=== PATIENT | female | born 1940 | race Caucasian/White ===

== ENCOUNTER 2020-01-12 22:24 | Inpatient (IN) | payer MEDICARE, OTHER ==
[~2020-01-12] VITALS: Ht 165.1 cm; Wt 57.9 kg
[~2020-01-12 22:24] MED LIST: ACETAMINOPHEN120 MG ORAL; ACETAMINOPHEN325 M1 ORAL; ASPIR 8181 MG ORAL; ASPIRIN81 MG ORAL; ATENOLOL100 MG ORAL; ATIVAN0.5 MG ORAL; BISACODYL10 M1 RC; BISACODYL5 MG RECTAL; CRESTOR10 M2 ORAL; DEPAKOTE SPRIN125 MG PO; DEPAKOTE250 MG PO; DOCUSATE SODIU100 MG ORAL; FLEET ENEMA133 ML RECTAL; GABAPENTIN100 MG ORAL; LEVOFLOXACIN500 MG ORAL; LIDODERM700 M1 TOPIC; MELATONIN 3 MG1 EAC1 PO; MILK OF MA400 MG/51 ORAL; MIRTAZAPINE45 MG ORAL; MULTIVITAMINS1 EAC2 ORAL; NITROGLYCERIN2.5 MG PO; NITROSTAT0.4 M1 SL; QUETIAPINE FUMA50 MG ORAL; SENNA8.6 M2 PO; SINEMET 25-1001 EAC1 ORAL; TRAMADOL HCL50 MG ORAL; VITAMIN D1000 UNI1 ORAL; XARELTO10 MG ORAL; XARELTO20 MG ORAL
[2020-01-12 22:30] VITALS: BP 122/56
--- NOTE | 2020-01-12 22:40 | NUR ---
ED Nurse Note: Patient brought into ED by RA Durbin from [facility] c/o cough onset for today. patient presents with a very wet cough. patient is obtunded and presents with contracted legs, patient is alert and oriented x0. patient o2 sat currently at 98% on 6 liters on a simple mask. covid swab sent. patient placed on campus monitor. IV placed on patients left hand 20 gauge. will wait for further orders
--- NOTE | 2020-01-12 22:40 | Emergency Room Report ---
History of Present Illness General Chief Complaint: Dyspnea/Respdistress Present Illness HPI Disclaimer: Please note that this report is being documented using built.ioON technology. This can lead to erroneous entry secondary to incorrect interpretation by the dictating instrument. HPI: 79-year-old female history of Parkinson's disease, dementia, bedbound, hypertension, presented from long-term facility due to cough and shortness of breath with hypoxia. Apparently patient appeared to be "choking on her secretions" per half-way staff. Saturation noted in the low 80s. EMS was called and transported to the ER. In route patient's O2 saturation normal. On arrival apparently at baseline she is confused and occasionally conversational. She did answer few questions but was unable to provide a full history. 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 COVID-19 Screening: Negative COVID-19 COVID-19 Testing Source: 2wks ago Patient History Reviewed Nursing Documentation: PMH: Agreed; PSxH: Agreed Nursing Documentation-PMH Hx Cardiac Problems: Yes Hx Hypertension: Yes Hx Diabetes: Yes Hx Cancer: Yes - unk Hx Gastrointestinal Problems: No Hx Neurological Problems: Yes Hx Dementia: Yes Hx Parkinson's Disease: Yes Hx Dysphasia: Yes Hx Weakness: Yes Review of Systems All Other Systems: limited - Due to baseline mental status Physical Exam Vital Signs Date Time Temp Pulse Resp B/P (MAP) Pulse Ox O2 Delivery O2 Flow Rate FiO2 01/12/20 22:25 98.1 65 16 122/56 (78) 98 Room Air Sp02 EP Interpretation: reviewed, normal General Appearance: no apparent distress, cachetic, Chronically Ill Head: normocephalic, atraumatic Eyes: bilateral eye PERRL, bilateral eye EOMI ENT: hearing grossly normal, moist mucus membranes Neck: full range of motion, supple Respiratory: no respiratory distress, no retraction, no wheezing, rhonchi - Noted at the lung bases Cardiovascular #1: normal peripheral pulses, regular rate, rhythm, no murmur Gastrointestinal: non tender, soft, non-distended, no guarding Neurologic: no focal defects, other - Patient opens eyes to voice, localizes to pain, is confused lower extremities contracted at baseline Skin: normal color, warm/dry Medical Decision Making Diagnostic Impression: Primary Impression: Urinary tract infection Additional Impression: Concern for aspiration pneumonia ER Course MDM: Differential diagnosis included but not limited to COVID-19 pneumonia aspiration pneumonia CHF, to name a few Clinical course-septic work-up initiated, COVID-19 testing was sent. COVID-19 testing was negative. White blood cell count was normal. Patient was around 95 % on room air. She did have a cough in the ER. Chest x-ray showed no obvious large infiltrate however due to the reported history of coughing and possibly choking on secretions I did have some concern for aspiration. I did give IV antibiotics. Urinalysis showed too numerous to count WBCs so I do believe patient does have a UTI as well. I did speak with the son who was in the ER and states his mother is currently at her neurologic baseline. I also spoke with patient's primary care doctor who will admit patient to the hospital. Patient was admitted to the medical floor Labs - Laboratory Tests Test 01/12/20 22:30 White Blood Count 9.6 K/UL (4.8-10.8) Red Blood Count 4.63 M/UL (4.20-5.40) Hemoglobin 12.6 G/DL (12.0-16.0) Hematocrit 40.8 % (37.0-47.0) Mean Corpuscular Volume 88 FL (80-99) Mean Corpuscular Hemoglobin 27.3 PG (27.0-31.0) Mean Corpuscular Hemoglobin Concent 31.0 G/DL (32.0-36.0) L Red Cell Distribution Width 15.0 % (11.6-14.8) H Platelet Count 239 K/UL (150-450) Mean Platelet Volume 9.0 FL (6.5-10.1) Neutrophils (%) (Auto) 56.6 % (45.0-75.0) Lymphocytes (%) (Auto) 33.5 % (20.0-45.0) Monocytes (%) (Auto) 7.4 % (1.0-10.0) Eosinophils (%) (Auto) 1.8 % (0.0-3.0) Basophils (%) (Auto) 0.7 % (0.0-2.0) Prothrombin Time 11.5 SEC (9.30-11.50) Prothrombin Time INR 1.0 (0.9-1.1) Activated Partial Thromboplast Time 29 SEC (23-33) Urine Color Yellow Urine Appearance Cloudy Urine pH 6 (4.5-8.0) Urine Specific [place] 1.020 (1.005-1.035) Urine Protein 1+ (NEGATIVE) H Urine Glucose (UA) Negative (NEGATIVE) Urine Ketones Negative (NEGATIVE) Urine Blood 4+ (NEGATIVE) H Urine Nitrite Positive (NEGATIVE) H Urine Bilirubin Negative (NEGATIVE) Urine Urobilinogen Normal MG/DL (0.0-1.0) Urine Leukocyte Esterase 3+ (NEGATIVE) H Urine RBC 40-60 /HPF (0 - 2) H Urine WBC Tntc /HPF (0 - 2) H Urine Squamous Epithelial Cells Moderate /LPF (NONE/OCC) H Urine Bacteria Moderate /HPF (NONE) H Sodium Level 143 MMOL/L (136-145) Potassium Level 4.6 MMOL/L (3.5-5.1) Chloride Level 107 MMOL/L (98-107) Carbon Dioxide Level 31 MMOL/L (21-32) Anion Gap 5 mmol/L (5-15) Blood Urea Nitrogen 15 mg/dL (7-18) Creatinine 0.8 MG/DL (0.55-1.30) Estimated Glomerular Filtration Rate > 60 mL/min (>60) Glucose Level 98 MG/DL (74-106) Lactic Acid Level 1.40 mmol/L (0.4-2.0) Calcium Level 9.1 MG/DL (8.5-10.1) Total Bilirubin 0.3 MG/DL (0.2-1.0) Aspartate Amino Transferase (AST) 45 U/L (15-37) H Alanine Aminotransferase (ALT) 12 U/L (12-78) Alkaline Phosphatase 104 U/L (46-116) Total Creatine Kinase 97 U/L (26-308) Creatine Kinase MB 1.3 NG/ML (0.0-3.6) Creatine Kinase MB Relative Index 1.3 Troponin I 0.000 ng/mL (0.000-0.056) Pro-B-Type Natriuretic Peptide 300 pg/mL (0-125) H Total Protein 7.9 G/DL (6.4-8.2) Albumin 3.0 G/DL (3.4-5.0) L Globulin 4.9 g/dL Albumin/Globulin Ratio 0.6 (1.0-2.7) L Microbiology Date/Time Source Procedure Growth Status 01/12/20 22:30 Nasopharynx SARS-CoV-2 RdRp Gene Assay - Final Complete On reevaluation: Vital signs stable patient in no acute distress Plan-admission to the medical floor EKG Diagnostic Results EKG Time: 22:25 Rate: normal Rhythm: NSR ST Segments: no acute changes Chest X-Ray Diagnostic Results Chest X-Ray Diagnostic Results : Chest X-Ray Ordered: Yes # of Views/Limited/Complete: 1 View Indication: Shortness of Breath EP Interpretation: Yes Interpretation: no effusion, no pneumothorax Impression: Other - Small right lower lobe infiltrate noted Last Vital Signs Date Time Temp Pulse Resp B/P (MAP) Pulse Ox O2 Delivery O2 Flow Rate FiO2 01/12/20 22:25 98.1 65 16 122/56 (78) 98 Room Air Disposition: ADMITTED INPATIENT Condition: Serious Brandon Lopez M.D. Jan 12, 2020 22:40
[2020-01-12] MEDS ORDERED: DORZOLAMIDE 2%10 ML OP (22:54)
[2020-01-12] MEDS ORDERED: LEXAPRO20 MG ORAL (22:54)
[2020-01-12] MEDS ORDERED: KEPPRA500 MG ORAL (22:54)
[2020-01-12] MEDS ORDERED: ATENOLOL50 MG ORAL (22:54)
[2020-01-12] MEDS ORDERED: GABAPENTIN100 MG ORAL (22:54)
[2020-01-12] MEDS ORDERED: CRESTOR10 M2 ORAL (22:54)
[2020-01-12] MEDS ORDERED: LACTULOSE10 GM/153 PO (22:54)
[2020-01-12] MEDS ORDERED: ELIQUIS2.5 MG PO (22:54)
[2020-01-12] MEDS ORDERED: ZINC SULFATE220 M2 ORAL (22:54)
[2020-01-12] MEDS ORDERED: ARICEPT10 MG ORAL (22:54)
--- NOTE | 2020-01-12 23:00 | NUR ---
ED Nurse Note: inserted tim cath per ERMD orders, patient also removed from simple face mask to room air, patient currently satting at 97%
[2020-01-12 23:07] LABS: BASOPHILS % (AUTO) 0.7 % (0.0-2.0); EOSINOPHILS % (AUTO) 1.8 % (0.0-3.0); HEMATOCRIT 40.8 % (37.0-47.0); HEMOGLOBIN 12.6 G/DL (12.0-16.0); LYMPHOCYTES % (AUTO) 33.5 % (20.0-45.0); MEAN CORPUSCULAR VOLUME 88 FL (80-99); MONOCYTES % (AUTO) 7.4 % (1.0-10.0); NEUTROPHILS % (AUTO) 56.6 % (45.0-75.0); PLATELET COUNT 239 K/UL (150-450); RED BLOOD COUNT 4.63 M/UL (4.20-5.40); WHITE BLOOD COUNT 9.6 K/UL (4.8-10.8)
[2020-01-12 23:18] LABS: ANION GAP 5 mmol/L (5-15); BLOOD UREA NITROGEN 15 mg/dL (7-18); CALCIUM 9.1 MG/DL (8.5-10.1); CARBON DIOXIDE 31 MMOL/L (21-32); CHLORIDE 107 MMOL/L (98-107); CREATININE 0.8 MG/DL (0.55-1.30); POTASSIUM 4.6 MMOL/L (3.5-5.1); SODIUM 143 MMOL/L (136-145)
[2020-01-12 23:19] LABS: BILIRUBIN, URINE NEGATIVE (NEGATIVE); GLUCOSE, URINE (UA) NEGATIVE (NEGATIVE); KETONES,URINE NEGATIVE (NEGATIVE); LEUKOCYTE ESTERASE ,URINE 3+ (NEGATIVE); NITRITE,URINE POSITIVE (NEGATIVE); PH,URINE 6 (4.5-8.0); PROTEIN,URINE 1+ (NEGATIVE); UROBILINOGEN,URINE NORMAL MG/DL (0.0-1.0)
[2020-01-12 23:32] LABS: ALANINE AMINOTRANSFERASE 12 U/L (12-78); ALBUMIN/GLOBULIN RATIO 0.6 (1.0-2.7); ALKALINE PHOSPHATASE 104 U/L (46-116); ASPARTATE AMINO TRANSFERASE 45 U/L (15-37); BILIRUBIN,TOTAL 0.3 MG/DL (0.2-1.0); CKMB 1.3 NG/ML (0.0-3.6); CREATINE KINASE 97 U/L (26-308)
[2020-01-12 23:39] LABS: APPEARANCE,URINE CLOUDY; COLOR,URINE YELLOW
[2020-01-12] MEDS ORDERED: Piperacillin/Tazobactam 3.375 GM in NS 110 ML IVPB ONE (23:45)
[2020-01-13 00:30] VITALS: BP 110/40
--- NOTE | 2020-01-13 01:40 | NUR ---
ED Nurse Note: Report given to [facility] receiving nurse.
--- NOTE | 2020-01-13 01:59 | NUR ---
NURSE NOTES: Received patient from ED, via gurney, patient is non verbal, but understands Farsi, asleep, eyes closed, skin is intact, IV site is clean dry and intact, patient has F/C 16 FR, inserted in ER, patient is incontinent of bowels, patient is changed, turned/ repositioned, patient has no belongings, admit orders are obtained form MD, call light is within reach, bed is lowered, locked, alarm is on, will continue to monitor for comfort and safety. Fall precautions are implemented.
--- NOTE | 2020-01-13 02:05 | NUR ---
ED Nurse Note: Patient is stable for transfer to [facility] unit at this time per ERMD. Patient is awake and alert, breathing is normal and unlabored. NAD. IV is patent. Patient taken to unit via gurney by tech. Patient has no belongings.
[2020-01-13] MEDS ORDERED: Albuterol/Ipratropium 3ml neb HHN SCH (02:30)
[2020-01-13] MEDS ORDERED: traMADol 50mg tab ORAL PRN (02:30)
[2020-01-13] MEDS ORDERED: Milk of Magnesia 30ml Ud ORAL PRN (02:30)
[2020-01-13] MEDS ORDERED: Albuterol/Ipratropium 3ml neb HHN PRN (03:00)
[2020-01-13 04:00] VITALS: BP 105/68
[2020-01-13] MEDS: Vancomycin 1gm/D5W 275ml IVPB SCH ×2 (04:05)
[2020-01-13] MEDS: Piperacillin/Tazobactam 3.375 GM in NS 110 ML IVPB SCH ×3 (05:38→21:00)
[2020-01-13 06:04] LABS: BASOPHILS % (AUTO) 0.4 % (0.0-2.0); EOSINOPHILS % (AUTO) 1.1 % (0.0-3.0); HEMATOCRIT 38.5 % (37.0-47.0); HEMOGLOBIN 12.1 G/DL (12.0-16.0); LYMPHOCYTES % (AUTO) 25.6 % (20.0-45.0); MEAN CORPUSCULAR VOLUME 86 FL (80-99); MONOCYTES % (AUTO) 5.3 % (1.0-10.0); NEUTROPHILS % (AUTO) 67.5 % (45.0-75.0); PLATELET COUNT 240 K/UL (150-450); RED BLOOD COUNT 4.46 M/UL (4.20-5.40); RED CELL DISTRIBUTION WIDTH 13.9 % (11.6-14.8); WHITE BLOOD COUNT 10.6 K/UL (4.8-10.8)
[2020-01-13 06:40] LABS: ALANINE AMINOTRANSFERASE 26 U/L (12-78); ALBUMIN 2.9 G/DL (3.4-5.0); ALBUMIN/GLOBULIN RATIO 0.6 (1.0-2.7); ALKALINE PHOSPHATASE 90 U/L (46-116); ANION GAP 9 mmol/L (5-15); ASPARTATE AMINO TRANSFERASE 31 U/L (15-37); BILIRUBIN,TOTAL 0.5 MG/DL (0.2-1.0); BLOOD UREA NITROGEN 13 mg/dL (7-18); CARBON DIOXIDE 27 MMOL/L (21-32); CHLORIDE 107 MMOL/L (98-107); CREATININE 0.9 MG/DL (0.55-1.30); PHOSPHORUS 3.6 MG/DL (2.5-4.9); SODIUM 143 MMOL/L (136-145)
--- NOTE | 2020-01-13 07:12 | NUR ---
NURSE HAND-OFF: Important Events on Shift:no events Patient Status:stable with a slight cough, breathing tx are scheduled q 6 hrs prn Diet: mechanical soft, nectar think liquids Pending Orders: Pending Results/Labs: Pending MD notification: Latest Vital Signs: Temperature 98.1 , Pulse 66 , B/P 105 /68 , Respiratory Rate 20 , O2 SAT 95 , Room Air, O2 Flow Rate . Vital Sign Comment: Latest Houser Fall Score: 70 Fall Risk: High Risk Safety Measures: Call light Within Reach, Bed Alarm Zone 1, Side Rails Side Rails x1, Bed position Low and Locked. Fall Precautions: implemented Report given to Julissa CASTAÑEDA
--- NOTE | 2020-01-13 07:35 | NUR ---
NURSE NOTES: Report received from Alessandra CASTAÑEDA. Patient seen on rounds, pt is moaning and crying, as per nurse patient speaks Farsi only, FLACC score 6, no signs of respiratory distress, tolerating room air with sats 97%. Noted dry cough and small amount of whitish oral secretions, lung sounds clear on auscultation. PIV on left hand patent and intact. Simmons catheter secured and draining well. Pt is bedbound. Bed low and locked, siderails up x3, fall precautions in place, will continue to monitor.
[2020-01-13 08:00] VITALS: BP 144/84
[2020-01-13] MEDS: Aspirin Baby 81mg ORAL SCH (08:43)
[2020-01-13] MEDS: Donepezil 10mg tab ORAL SCH (08:43)
[2020-01-13] MEDS: Eliquis 2.5mg tablet ORAL SCH ×2 (08:43→18:00)
[2020-01-13] MEDS: Levodopa/Carbidopa 25/100 tab ORAL SCH ×2 (08:43→18:00)
[2020-01-13] MEDS: LORazepam 0.5mg tab ORAL PRN (08:44)
[2020-01-13] MEDS: Docusate 100mg cap ORAL SCH ×2 (08:44→18:00)
[2020-01-13 12:00] VITALS: BP 90/51
--- NOTE | 2020-01-13 12:40 | Infectious Diseases Prog Note ---
Assessment/Plan Assessment/Plan Full consult dictated: A) 1) aspiration pna 2) uti 3) pmh noted 4) allergies - nkda P) 1) zosyn and vancomycin 2) check cultures, labs and chest x-ray 3) will f/u 4) thank you Subjective Allergies: Coded Allergies: No Known Allergies (Unverified , 09/25/18) Objective Last 24 Hour Vital Signs Date Time Temp Pulse Resp B/P (MAP) Pulse Ox O2 Delivery O2 Flow Rate FiO2 01/13/20 12:00 98.1 60 19 90/51 (64) 94 01/13/20 09:00 Room Air 01/13/20 08:44 66 19 144/84 97 01/13/20 08:44 66 144/84 01/13/20 08:00 97.0 66 19 144/84 (104) 97 01/13/20 06:35 66 20 95 Room Air 21 01/13/20 04:00 98.1 68 21 105/68 (80) 94 01/13/20 02:05 98.3 61 16 102/59 99 Room Air 01/13/20 01:59 Room Air 01/13/20 00:30 98.1 65 16 110/40 96 Room Air 01/12/20 22:30 65 16 Room Air 01/12/20 22:30 98.1 65 16 122/56 98 Room Air 01/12/20 22:25 98.1 65 16 122/56 (78) 98 Room Air Height (Feet): 5 Height (Inches): 0.00 Weight (Pounds): 130 Microbiology Date/Time Source Procedure Growth Status 01/12/20 22:30 Nasopharynx SARS-CoV-2 RdRp Gene Assay - Final Complete 01/13/20 00:13 Rectum Received Laboratory Tests Test 01/12/20 22:30 01/13/20 05:10 White Blood Count 9.6 K/UL (4.8-10.8) 10.6 K/UL (4.8-10.8) Red Blood Count 4.63 M/UL (4.20-5.40) 4.46 M/UL (4.20-5.40) Hemoglobin 12.6 G/DL (12.0-16.0) 12.1 G/DL (12.0-16.0) Hematocrit 40.8 % (37.0-47.0) 38.5 % (37.0-47.0) Mean Corpuscular Volume 88 FL (80-99) 86 FL (80-99) Mean Corpuscular Hemoglobin 27.3 PG (27.0-31.0) 27.1 PG (27.0-31.0) Mean Corpuscular Hemoglobin Concent 31.0 G/DL (32.0-36.0) L 31.4 G/DL (32.0-36.0) L Red Cell Distribution Width 15.0 % (11.6-14.8) H 13.9 % (11.6-14.8) Platelet Count 239 K/UL (150-450) 240 K/UL (150-450) Mean Platelet Volume 9.0 FL (6.5-10.1) 8.0 FL (6.5-10.1) Neutrophils (%) (Auto) 56.6 % (45.0-75.0) 67.5 % (45.0-75.0) Lymphocytes (%) (Auto) 33.5 % (20.0-45.0) 25.6 % (20.0-45.0) Monocytes (%) (Auto) 7.4 % (1.0-10.0) 5.3 % (1.0-10.0) Eosinophils (%) (Auto) 1.8 % (0.0-3.0) 1.1 % (0.0-3.0) Basophils (%) (Auto) 0.7 % (0.0-2.0) 0.4 % (0.0-2.0) Prothrombin Time 11.5 SEC (9.30-11.50) Prothromb Time International Ratio 1.0 (0.9-1.1) Activated Partial Thromboplast Time 29 SEC (23-33) Urine Color Yellow Urine Appearance Cloudy Urine pH 6 (4.5-8.0) Urine Specific [place] 1.020 (1.005-1.035) Urine Protein 1+ (NEGATIVE) H Urine Glucose (UA) Negative (NEGATIVE) Urine Ketones Negative (NEGATIVE) Urine Blood 4+ (NEGATIVE) H Urine Nitrite Positive (NEGATIVE) H Urine Bilirubin Negative (NEGATIVE) Urine Urobilinogen Normal MG/DL (0.0-1.0) Urine Leukocyte Esterase 3+ (NEGATIVE) H Urine RBC 40-60 /HPF (0 - 2) H Urine WBC Tntc /HPF (0 - 2) H Urine Squamous Epithelial Cells Moderate /LPF (NONE/OCC) H Urine Bacteria Moderate /HPF (NONE) H Sodium Level 143 MMOL/L (136-145) 143 MMOL/L (136-145) Potassium Level 4.6 MMOL/L (3.5-5.1) 4.0 MMOL/L (3.5-5.1) Chloride Level 107 MMOL/L (98-107) 107 MMOL/L (98-107) Carbon Dioxide Level 31 MMOL/L (21-32) 27 MMOL/L (21-32) Anion Gap 5 mmol/L (5-15) 9 mmol/L (5-15) Blood Urea Nitrogen 15 mg/dL (7-18) 13 mg/dL (7-18) Creatinine 0.8 MG/DL (0.55-1.30) 0.9 MG/DL (0.55-1.30) Estimat Glomerular Filtration Rate > 60 mL/min (>60) > 60 mL/min (>60) Glucose Level 98 MG/DL (74-106) 129 MG/DL (74-106) H Lactic Acid Level 1.40 mmol/L (0.4-2.0) Calcium Level 9.1 MG/DL (8.5-10.1) 9.0 MG/DL (8.5-10.1) Total Bilirubin 0.3 MG/DL (0.2-1.0) 0.5 MG/DL (0.2-1.0) Aspartate Amino Transf (AST/SGOT) 45 U/L (15-37) H 31 U/L (15-37) Alanine Aminotransferase (ALT/SGPT) 12 U/L (12-78) 26 U/L (12-78) Alkaline Phosphatase 104 U/L (46-116) 90 U/L (46-116) Total Creatine Kinase 97 U/L (26-308) Creatine Kinase MB 1.3 NG/ML (0.0-3.6) Creatine Kinase MB Relative Index 1.3 Troponin I 0.000 ng/mL (0.000-0.056) Pro-B-Type Natriuretic Peptide 300 pg/mL (0-125) H Total Protein 7.9 G/DL (6.4-8.2) 7.5 G/DL (6.4-8.2) Albumin 3.0 G/DL (3.4-5.0) L 2.9 G/DL (3.4-5.0) L Globulin 4.9 g/dL 4.6 g/dL Albumin/Globulin Ratio 0.6 (1.0-2.7) L 0.6 (1.0-2.7) L Phosphorus Level 3.6 MG/DL (2.5-4.9) Magnesium Level 2.1 MG/DL (1.8-2.4) Current Medications Medications (Trade) Dose Ordered Sig/Mikey Route PRN Reason Start Time Stop Time Status Last Admin Dose Admin Acetaminophen (Tylenol) 650 mg Q4H PRN ORAL MILD/TEMP 01/13/20 02:30 02/12/20 02:29 Albuterol/ Ipratropium (Albuterol/ Ipratropium) 3 ml Q6H PRN HHN For Cough 01/13/20 03:00 01/18/20 02:59 Apixaban (Eliquis) 2.5 mg BID ORAL 01/13/20 09:00 04/12/20 08:59 01/13/20 08:43 Aspirin (ASA) 81 mg DAILY ORAL 01/13/20 09:00 02/27/20 08:59 01/13/20 08:43 Atenolol (Tenormin) 100 mg DAILY ORAL 01/13/20 09:00 02/12/20 08:59 01/13/20 08:44 Carbidopa/Levodopa (Sinemet 25/100) 1 tab BID ORAL 01/13/20 09:00 02/12/20 08:59 01/13/20 08:43 Divalproex Sodium (Depakote Sprinkles) 500 mg BEDTIME NG 01/13/20 21:00 02/12/20 20:59 Docusate Sodium (Colace) 100 mg TWICE A DAY ORAL 01/13/20 09:00 02/12/20 08:59 01/13/20 08:44 Donepezil HCl (Aricept) 10 mg DAILY ORAL 01/13/20 09:00 02/12/20 08:59 01/13/20 08:43 Gabapentin (Neurontin) 100 mg THREE TIMES A DAY ORAL 01/13/20 09:00 02/12/20 08:59 01/13/20 08:43 Levetiracetam (Keppra) 500 mg EVERY 12 HOURS ORAL 01/13/20 09:00 02/12/20 08:59 01/13/20 08:43 Lorazepam (Ativan) 0.5 mg Q4H PRN ORAL For Anxiety 01/13/20 02:30 01/20/20 02:29 01/13/20 08:44 Magnesium Hydroxide (Mom) 30 ml DAILY PRN ORAL Constipation 01/13/20 02:30 02/12/20 02:29 Mirtazapine (Remeron) 45 mg BEDTIME ORAL 01/13/20 21:00 04/12/20 20:59 Piperacillin Sod/ Tazobactam Sod 3.375 gm/Sodium Chloride 110 ml @ 27.5 mls/hr EVERY 8 HOURS IVPB 01/13/20 06:00 01/18/20 05:59 01/13/20 05:38 Sennosides (Senokot) 8.6 mg BEDTIME ORAL 01/13/20 21:00 02/12/20 20:59 Tramadol HCl (Ultram) 50 mg Q6H PRN ORAL Moderate Pain (Pain Scale 4-6) 01/13/20 02:30 01/20/20 02:29 01/13/20 08:50 Vancomycin HCl (Vanco pharmacy to dose) 1 ea DAILY PRN MISC Per rx protocol 01/13/20 02:15 02/12/20 02:14 Vancomycin HCl 1 gm/Dextrose 275 ml @ 183.708 mls/hr Q24H IVPB 01/13/20 04:00 01/18/20 03:59 01/13/20 04:05 Rola Junior MD Jan 13, 2020 12:40
--- NOTE | 2020-01-13 14:24 | NUR ---
HAND-OFF: Report given to Yobani CASTAÑEDA for continuity of care.
--- NOTE | 2020-01-13 14:32 | NUR ---
CASE MANAGEMENT:INITIAL REVIEW 79 YR OLD FEMALE BIBA FROM [facility] CC;DYSPNEA. RESPIRATORY DISTRESS. SI;ASPIRATION. UTI. 98.3 65 16 122/56 96% ON RA AST 45 BNP 300 ALB 3.0 UA+ PROTEIN, BLOOD, NITRITE, LEUKOCYTE ESTERASE, RBC, WBC, SQUAMOUS EPITH, BACTERIA COVID RAPID ~ NEGATIVE CXR ~ RESULT PENDING IS;ZOSYN IV ONCE DUO NEB HHN ADMITTED TO MED SURG 01/13/20 @ 0139 MED SURG STATUS DCP;[facility]
--- NOTE | 2020-01-13 15:52 | NUR ---
BSE completed. Pt seen for evaluation and cleared by MADDY Costa. Pt seen in bed, contracted with eyes closed. Pt intermittently answering questions, but with MAX cuing. Did not open eyes throughout the session, however, pt is blind per chart, so this may be baseline. Pt repositioned upright in contracted position. Provided pt with ice chips x 3 with immediate cough x 1 and delayed cough x 2. Pt demonstrated reflexive tongue pumping. Pt given oral care before and after trials, noted that pt had reflexive bite reflex on toothette. Pt overall demonstrated MOD-SEVERE oropharyngeal dysphagia characterized by intermittent oral acceptance, poor oral coordination, delayed anterior-posterior transit (suspected), delayed swallow reflex, and weak/reduced laryngeal movement upon palpation. Pt is high aspiration risk given cognition, awareness and poor p.o. tolerance. Given poor comprehension, awareness, and inability to follow directions, pt is not a candidate for a Video Swallow Study. Recommend Strict NPO. Recommend consideration for comfort care measures vs. prison enteral feeding. ST will continue to follow pt 3x/week for dysphagia management give NPO status.
[2020-01-13 16:00] VITALS: BP 101/50
[2020-01-13] MEDS ORDERED: Varibar Pudding 230ml MC PRN (16:00)
[2020-01-13] MEDS ORDERED: Varibar Honey 250ml MC PRN (16:00)
[2020-01-13] MEDS ORDERED: Varibar Nectar 240ml MC PRN (16:00)
[2020-01-13] MEDS ORDERED: Varibar Thin Liquid powder 148gm MC PRN (16:00)
--- NOTE | 2020-01-13 16:45 | History & Physical ---
History and Physical History & Physicial History of Present Illness General Chief Complaint: Dyspnea/Resp distress Present Illness HPI HPI: 79-year-old female history of Parkinson's disease, dementia, bedbound, hypertension, presented from senior care facility due to cough and shortness of breath with hypoxia. Apparently patient appeared to be "choking on her secretions" per custodial staff. Saturation noted in the low 80s. EMS was called and transported to the ER. In route patient's O2 saturation normal. On arrival apparently at baseline she is confused and occasionally conversational. She did answer few questions but was unable to provide a full history. Allergies: Coded Allergies: No Known Allergies (Unverified , 09/25/18) Patient History Reviewed Nursing Documentation: PMH: Agreed; PSxH: Agreed Review of Systems All Other Systems: limited - Due to baseline mental status ER Physical Exam - General Physical Exam Vital Signs Date Time Temp Pulse Resp B/P (MAP) Pulse Ox O2 Delivery O2 Flow Rate FiO2 01/12/20 22:25 98.1 65 16 122/56 (78) 98 Room Air Sp02 EP Interpretation: reviewed, normal General Appearance: no apparent distress, cachetic, Chronically Ill obtunded Head: normocephalic, atraumatic Eyes: bilateral eye PERRL, bilateral eye EOMI ENT: hearing grossly normal, moist mucus membranes Neck: full range of motion, supple Respiratory: no respiratory distress, no retraction, no wheezing, rhonchi - Noted at the lung bases Cardiovascular #1: normal peripheral pulses, regular rate, rhythm, no murmur Gastrointestinal: non tender, soft, non-distended, no guarding Neurologic: no focal defects, other - Patient opens eyes to voice, localizes to pain, is confused lower extremities contracted at baseline +Dementia Skin: normal color, warm/dry Laboratory Tests Test 01/12/20 22:30 White Blood Count 9.6 K/UL (4.8-10.8) Red Blood Count 4.63 M/UL (4.20-5.40) Hemoglobin 12.6 G/DL (12.0-16.0) Hematocrit 40.8 % (37.0-47.0) Mean Corpuscular Volume 88 FL (80-99) Mean Corpuscular Hemoglobin 27.3 PG (27.0-31.0) Mean Corpuscular Hemoglobin Concent 31.0 G/DL (32.0-36.0) L Red Cell Distribution Width 15.0 % (11.6-14.8) H Platelet Count 239 K/UL (150-450) Mean Platelet Volume 9.0 FL (6.5-10.1) Neutrophils (%) (Auto) 56.6 % (45.0-75.0) Lymphocytes (%) (Auto) 33.5 % (20.0-45.0) Monocytes (%) (Auto) 7.4 % (1.0-10.0) Eosinophils (%) (Auto) 1.8 % (0.0-3.0) Basophils (%) (Auto) 0.7 % (0.0-2.0) Prothrombin Time 11.5 SEC (9.30-11.50) Prothrombin Time INR 1.0 (0.9-1.1) Activated Partial Thromboplast Time 29 SEC (23-33) Urine Color Yellow Urine Appearance Cloudy Urine pH 6 (4.5-8.0) Urine Specific [place] 1.020 (1.005-1.035) Urine Protein 1+ (NEGATIVE) H Urine Glucose (UA) Negative (NEGATIVE) Urine Ketones Negative (NEGATIVE) Urine Blood 4+ (NEGATIVE) H Urine Nitrite Positive (NEGATIVE) H Urine Bilirubin Negative (NEGATIVE) Urine Urobilinogen Normal MG/DL (0.0-1.0) Urine Leukocyte Esterase 3+ (NEGATIVE) H Urine RBC 40-60 /HPF (0 - 2) H Urine WBC Tntc /HPF (0 - 2) H Urine Squamous Epithelial Cells Moderate /LPF (NONE/OCC) H Urine Bacteria Moderate /HPF (NONE) H Sodium Level 143 MMOL/L (136-145) Potassium Level 4.6 MMOL/L (3.5-5.1) Chloride Level 107 MMOL/L (98-107) Carbon Dioxide Level 31 MMOL/L (21-32) Anion Gap 5 mmol/L (5-15) Blood Urea Nitrogen 15 mg/dL (7-18) Creatinine 0.8 MG/DL (0.55-1.30) Estimated Glomerular Filtration Rate > 60 mL/min (>60) Glucose Level 98 MG/DL (74-106) Lactic Acid Level 1.40 mmol/L (0.4-2.0) Calcium Level 9.1 MG/DL (8.5-10.1) Total Bilirubin 0.3 MG/DL (0.2-1.0) Aspartate Amino Transferase (AST) 45 U/L (15-37) H Alanine Aminotransferase (ALT) 12 U/L (12-78) Alkaline Phosphatase 104 U/L (46-116) Total Creatine Kinase 97 U/L (26-308) Creatine Kinase MB 1.3 NG/ML (0.0-3.6) Creatine Kinase MB Relative Index 1.3 Troponin I 0.000 ng/mL (0.000-0.056) Pro-B-Type Natriuretic Peptide 300 pg/mL (0-125) H Total Protein 7.9 G/DL (6.4-8.2) Albumin 3.0 G/DL (3.4-5.0) L Globulin 4.9 g/dL Albumin/Globulin Ratio 0.6 (1.0-2.7) L Microbiology Date/Time Source Procedure Growth Status 01/12/20 22:30 Nasopharynx SARS-CoV-2 RdRp Gene Assay - Final Complete EKG Diagnostic Results EKG Time: 22:25 Rate: normal Rhythm: NSR ST Segments: no acute changes Chest X-Ray Diagnostic Results Chest X-Ray Diagnostic Results : Chest X-Ray Ordered: Yes # of Views/Limited/Complete: 1 View Indication: Shortness of Breath EP Interpretation: Yes Interpretation: no effusion, no pneumothorax Impression: Other - Small right lower lobe infiltrate noted Impression: acute hypoxic resp failure fever hypotension possible early shock acute toxic encephalopathy UTI parkinson's disease dementia bedbound status senile debility anxiety PLAN: IVF IV abx f/u cx pulm/ID eval NGT ST pain control aspiration precaution oxygen FULL CODE. d/w amy salazarn over 70 min spent today. over 50% with counseling , coordinate of care , advance care planning d/w son. Castillo MD Internal Medicine [phone] stamped time may not be actual encounter time Raymundo Barrera MD Jan 13, 2020 16:45
--- NOTE | 2020-01-13 16:46 | Diagnostic Imaging Report ---
Indication: Cough Technique: One view of the chest Comparison: 09/28/2018 Findings: There is a 2 cm diameter opacity at the right lung base which is not evident previously. There is some blunting of left costophrenic sulcus, similar to the prior exam. The right pleural space and bilateral upper lungs are clear. There are axillary surgical clips on the right. The heart size is normal. Impression: 2 cm right basilar opacity. While possibly a focal infiltrate, the possibility that this represents a neoplastic nodule should also be considered. Recommend follow-up chest radiographs to resolution, consider chest CT should lesion failed to resolve. This was discussed by phone with Dr. Iverson at the time of interpretation Left costophrenic angle blunting, could represent small pleural fluid versus chronic scarring.
--- NOTE | 2020-01-13 17:47 | NUR ---
NURSE NOTES: Contacted MD Nicole and advised him taht we were unable to insert NG tube as patient was not alert and had failed swallow evaluation earlier today with speech therapy. MD stated to cancel NG tube and change IV fluid to D5NS at 75/hour. MADDY Alston notified.
[2020-01-13] MEDS: D5NS 1,000 ML IV SCH (18:07)
--- NOTE | 2020-01-13 18:45 | Consultation ---
DATE OF CONSULTATION: 01/13/2020 PULMONARY CONSULTATION CONSULTING PHYSICIAN: Pete Bell MD. HISTORY OF PRESENT ILLNESS: This is an 79-year-old female who was brought into the [facility] with cough and shortness of breath. Patient was noted to be choking on secretions per long term staff. She was also hypoxic. Patient was given oxygen en route. Patient unable to provide any answers to me. PAST MEDICAL HISTORY: Notable for hypertension, diabetes mellitus, dementia, Parkinson's, chronic dysphagia. REVIEW OF SYSTEMS: Unreliable. PAST SURGICAL HISTORY: Not known. HOME MEDICATIONS: Include Eliquis, aspirin, atenolol, Depakote, Colace, Aricept, Neurontin, Keppra, Sinemet, Ativan. PHYSICAL EXAMINATION: GENERAL: Reveals elderly female. HEENT: Unremarkable. CHEST: Decreased breath sounds bilaterally with normal heart sounds. ABDOMEN: Soft. EXTREMITIES: There is no edema. VITAL SIGNS: Blood pressure is 90/60, heart rate is 64, respirations 20, she is afebrile, O2 saturation 94% on room air. LABORATORY DATA: Lab testing shows normal CBC and BMP with glucose of 129. Coags are negative. Urinalysis shows too numerous to count wbc's. X-ray chest was essentially normal. IMPRESSION: 1. Possible aspiration pneumonia. 2. UTI. 3. Dementia. 4. Parkinson's. DISCUSSION: Admit to the hospital. Patient needs broad-spectrum antibiotic, which has been started. We will order oxygen as needed and pulmonary hygiene. We will follow as slitter cut off operator. . Pete Bell M.D. DR: CHRISTIAN JOB#: [id number] CC:
--- NOTE | 2020-01-13 19:05 | NUR ---
NURSE HAND-OFF: Important Events on Shift: Patient failed swallow eval; received orders to insert NGT; attempted NGT insertion but to no avail, patient started coughing and resisting insertion by not swallowing during procedure; MD aware Patient Status: will continue to monitor Diet: NPO; IVF Pending Orders: medications unable to administer PO Pending Results/Labs: labs in AM; ST eval tomorrow Pending MD notification: reconcile PO medications; unable to administer d/t swallowing issues Latest Vital Signs: Temperature 98.0 , Pulse 54 , B/P 101 /50 , Respiratory Rate 19 , O2 SAT 93 , Room Air, O2 Flow Rate . Vital Sign Comment: monitor O2Sat Latest Houser Fall Score: 70 Fall Risk: High Risk Safety Measures: Call light Within Reach, Bed Alarm Zone 2, Side Rails Side Rails x2, Bed position Low and Locked. Fall Precautions: Yellow Socks Yellow Gown Door Sign Patient Fall Education Report given to MADDY Medina. Endorsed POC.
--- NOTE | 2020-01-13 19:15 | NUR ---
NURSE NOTES: Received report from MADDY Hilton. Pt resting in bed, non verbal, on room air. Pt is on NPO. Simmons intact and secured to the leg. IV site intact and running IVF. Fall, aspiration, and seizure precaution maintained. Suction setup at bedside and pink secretion noted. ST eval scheduled tomorrow. Bed locked, lowest position, alarm on, side rails up, call light within reach. Will continue to monitor.
[2020-01-13 20:00] VITALS: BP 132/65
[2020-01-13] MEDS: Depakote 125mg Sprinkles NG SCH (20:21)
[2020-01-13] MEDS: Sennosides 8.6mg tab ORAL SCH (20:22)
[2020-01-14] VITALS: BP 90/43
[2020-01-14] MEDS: Vancomycin 1gm/D5W 275ml IVPB SCH ×2 (03:09)
[2020-01-14 04:00] VITALS: BP 119/43
[2020-01-14] MEDS: D5NS 1,000 ML IV SCH ×2 (05:29→21:37)
[2020-01-14] MEDS: Piperacillin/Tazobactam 3.375 GM in NS 110 ML IVPB SCH ×3 (05:29→21:37)
--- NOTE | 2020-01-14 06:38 | NUR ---
NURSE NOTES: Left message Dr. Barrera regarding med recons to change po meds to IV. Awaiting for call back.
[2020-01-14 07:14] LABS: BASOPHILS % (AUTO) 0.9 % (0.0-2.0); EOSINOPHILS % (AUTO) 0.6 % (0.0-3.0); HEMATOCRIT 36.6 % (37.0-47.0); HEMOGLOBIN 11.5 G/DL (12.0-16.0); LYMPHOCYTES % (AUTO) 27.4 % (20.0-45.0); MEAN CORPUSCULAR VOLUME 87 FL (80-99); MONOCYTES % (AUTO) 7.1 % (1.0-10.0); PLATELET COUNT 224 K/UL (150-450); RED BLOOD COUNT 4.22 M/UL (4.20-5.40); RED CELL DISTRIBUTION WIDTH 14.4 % (11.6-14.8); WHITE BLOOD COUNT 9.7 K/UL (4.8-10.8)
[2020-01-14 07:33] LABS: ALANINE AMINOTRANSFERASE 19 U/L (12-78); ALBUMIN 2.9 G/DL (3.4-5.0); ALBUMIN/GLOBULIN RATIO 0.6 (1.0-2.7); ALKALINE PHOSPHATASE 85 U/L (46-116); ANION GAP 8 mmol/L (5-15); ASPARTATE AMINO TRANSFERASE 22 U/L (15-37); BILIRUBIN,TOTAL 0.4 MG/DL (0.2-1.0); BLOOD UREA NITROGEN 17 mg/dL (7-18); CARBON DIOXIDE 28 MMOL/L (21-32); CHLORIDE 109 MMOL/L (98-107); CREATININE 0.9 MG/DL (0.55-1.30); POTASSIUM 3.8 MMOL/L (3.5-5.1); SODIUM 144 MMOL/L (136-145)
--- NOTE | 2020-01-14 07:35 | NUR ---
NURSE HAND-OFF: Important Events on Shift:NPO, aspiration precaution, unable to administer PO meds. Patient Status: stable Diet: NPO Pending Orders: ST freitas today Pending Results/Labs:N Pending MD notification:meds recon for PO meds Latest Vital Signs: Temperature 97.9 , Pulse 55 , B/P 119 /43 , Respiratory Rate 22 , O2 SAT 93 , Room Air, O2 Flow Rate . Vital Sign Comment: Latest Houser Fall Score: 70 Fall Risk: High Risk Safety Measures: Call light Within Reach, Bed Alarm Zone 2, Side Rails Side Rails x2, Bed position Low and Locked. Fall Precautions: Yellow Socks Yellow Gown Door Sign Patient Fall Education Report given to [MADDY Shelton].
[2020-01-14 08:00] VITALS: BP 114/40
--- NOTE | 2020-01-14 08:00 | NUR ---
NURSE NOTES: Patient opens eyes to touch,non verbal,respirations unlabored.IV fluids infusing as ordered.Simmons catheter is in place and draining yellow urine.Patient is contracted,turn and position.Bed alarm is on.
[2020-01-14] MEDS ORDERED: OXYCODONE H5 MG/5 ML ORAL (08:40)
[2020-01-14] MEDS ORDERED: TRAMADOL HCL50 MG ORAL (08:40)
[2020-01-14] MEDS ORDERED: FISH OIL 1,0001 EAC1 ORAL (08:47)
[2020-01-14] MEDS ORDERED: VITAMIN B-1100 MG ORAL (08:47)
[2020-01-14] MEDS ORDERED: WEEKLY-D1250 MCG PO (08:54)
[2020-01-14] MEDS ORDERED: FERROUS SU300 MG/5 M ORAL (08:54)
[2020-01-14] MEDS ORDERED: MELATONIN 5 MG1 EAC1 ORAL (08:54)
[2020-01-14] MEDS: Aspirin Baby 81mg ORAL SCH (09:00)
[2020-01-14] MEDS: Levodopa/Carbidopa 25/100 tab ORAL SCH ×2 (09:00→18:00)
[2020-01-14] MEDS: Docusate 100mg cap ORAL SCH ×2 (09:00→18:00)
[2020-01-14] MEDS: Eliquis 2.5mg tablet ORAL SCH ×2 (09:00→18:00)
[2020-01-14] MEDS: Donepezil 10mg tab ORAL SCH (09:00)
--- NOTE | 2020-01-14 10:34 | Diagnostic Imaging Report ---
EXAM: XR Chest, 1 View CLINICAL HISTORY: INFECT TECHNIQUE: Frontal view of the chest. COMPARISON: Chest x-ray 01/12/20 FINDINGS: Lungs: Left lung base atelectasis/airspace disease. Subtle opacity in the right lower lung. Pleural space: Tiny left pleural effusion, similar to slightly increased. No pneumothorax. Heart: Unremarkable. No cardiomegaly. Mediastinum: Unremarkable. Bones/joints: Unremarkable. Soft tissues: Surgical clips in the right axilla. IMPRESSION: 1. Tiny left pleural effusion, similar to slightly increased. 2. Left lung base atelectasis/airspace disease, slightly worse. 3. Subtle opacity in the right lower lung.
[2020-01-14 12:00] VITALS: BP 122/60
--- NOTE | 2020-01-14 12:05 | Pulmonology Progress Note ---
Subjective Interval Events: Follow up CXR shows small left effusion Constitutional: Reports: no symptoms HEENT: Repors: no symptoms Respiratory: Reports: no symptoms Cardiovascular: Reports: no symptoms Gastrointestinal/Abdominal: Reports: no symptoms Genitourinary: Reports: no symptoms Allergies: Coded Allergies: No Known Allergies (Unverified , 09/25/18) Objective Last 24 Hour Vital Signs Date Time Temp Pulse Resp B/P (MAP) Pulse Ox O2 Delivery O2 Flow Rate FiO2 01/14/20 09:00 Room Air 01/14/20 08:00 97.9 53 22 114/40 (64) 98 01/14/20 06:40 57 16 95 Room Air 21 01/14/20 04:00 97.9 55 22 119/43 (68) 93 01/14/20 00:00 97.9 51 20 90/43 (59) 93 01/13/20 21:00 Room Air 01/13/20 20:00 96.8 61 18 132/65 (87) 95 01/13/20 16:00 98.0 54 19 101/50 (67) 93 Intake and Output 01/13/20 01/14/20 19:00 07:00 Output Total 500 ml Balance -500 ml Output Urine Total 500 ml # Bowel Movements 1 General Appearance: no acute distress HEENT: normocephalic Respiratory: chest wall non-tender Cardiovascular: normal peripheral pulses Abdomen: normal bowel sounds Microbiology Date/Time Source Procedure Growth Status 01/12/20 22:30 Blood Blood Culture - Preliminary NO GROWTH AFTER 24 HOURS Resulted 01/12/20 22:18 Blood Blood Culture - Preliminary NO GROWTH AFTER 24 HOURS Resulted 01/12/20 22:30 Nasopharynx SARS-CoV-2 RdRp Gene Assay - Final Complete 01/12/20 22:30 Urine,Clean Catch Urine Culture - Preliminary Gram Negative Vishnu Resulted 01/13/20 00:13 Rectum Received Laboratory Tests 01/14/20 06:15: White Blood Count 9.7, Red Blood Count 4.22, Hemoglobin 11.5L, Hematocrit 36.6L , Mean Corpuscular Volume 87, Mean Corpuscular Hemoglobin 27.3, Mean Corpuscular Hemoglobin Concent 31.5L, Red Cell Distribution Width 14.4, Platelet Count 224, Mean Platelet Volume 8.1, Neutrophils (%) (Auto) 64.0, Lymphocytes (%) (Auto) 27.4, Monocytes (%) (Auto) 7.1, Eosinophils (%) (Auto) 0.6, Basophils (%) (Auto) 0.9, Sodium Level 144, Potassium Level 3.8, Chloride Level 109H, Carbon Dioxide Level 28, Anion Gap 8, Blood Urea Nitrogen 17, Creatinine 0.9, Estimat Glomerular Filtration Rate > 60, Glucose Level 123H, Calcium Level 9.0, Total Bilirubin 0.4, Aspartate Amino Transf (AST/SGOT) 22, Alanine Aminotransferase (ALT/SGPT) 19, Alkaline Phosphatase 85, Total Protein 7.6, Albumin 2.9L, Globulin 4.7, Albumin/Globulin Ratio 0.6L Current Medications Medications (Trade) Dose Ordered Sig/Mikey Route PRN Reason Start Time Stop Time Status Last Admin Dose Admin Acetaminophen (Tylenol) 650 mg Q4H PRN ORAL MILD/TEMP 01/13/20 02:30 02/12/20 02:29 Albuterol/ Ipratropium (Albuterol/ Ipratropium) 3 ml Q6H PRN HHN For Cough 01/13/20 03:00 01/18/20 02:59 Apixaban (Eliquis) 2.5 mg BID ORAL 01/13/20 09:00 04/12/20 08:59 01/13/20 08:43 Aspirin (ASA) 81 mg DAILY ORAL 01/13/20 09:00 02/27/20 08:59 01/13/20 08:43 Atenolol (Tenormin) 100 mg DAILY ORAL 01/13/20 09:00 02/12/20 08:59 01/13/20 08:44 Barium Sulfate (Varibar Honey) 250 ml NOW PRN MC RAD 01/13/20 16:00 01/16/20 15:58 Barium Sulfate (Varibar [place]) 240 ml NOW PRN MC RAD 01/13/20 16:00 01/16/20 15:58 Barium Sulfate (Varibar Pudding) 230 ml NOW PRN MC RAD 01/13/20 16:00 01/16/20 15:58 Barium Sulfate (Varibar Thin Liquid powder) 148 gm NOW PRN MC RAD 01/13/20 16:00 01/16/20 15:58 Carbidopa/Levodopa (Sinemet 25/100) 1 tab BID ORAL 01/13/20 09:00 02/12/20 08:59 01/13/20 08:43 Dextrose/Sodium Chloride 1,000 ml @ 75 mls/hr [id number] IV 01/13/20 17:45 02/12/20 17:44 01/14/20 05:29 Divalproex Sodium (Depakote Sprinkles) 500 mg BEDTIME NG 01/13/20 21:00 02/12/20 20:59 Docusate Sodium (Colace) 100 mg TWICE A DAY ORAL 01/13/20 09:00 02/12/20 08:59 01/13/20 08:44 Donepezil HCl (Aricept) 10 mg DAILY ORAL 01/13/20 09:00 02/12/20 08:59 01/13/20 08:43 Gabapentin (Neurontin) 100 mg THREE TIMES A DAY ORAL 01/13/20 09:00 02/12/20 08:59 01/13/20 08:43 Levetiracetam (Keppra) 500 mg EVERY 12 HOURS ORAL 01/13/20 09:00 02/12/20 08:59 01/13/20 08:43 Lorazepam (Ativan) 0.5 mg Q4H PRN ORAL For Anxiety 01/13/20 02:30 01/20/20 02:29 01/13/20 08:44 Magnesium Hydroxide (Mom) 30 ml DAILY PRN ORAL Constipation 01/13/20 02:30 02/12/20 02:29 Mirtazapine (Remeron) 45 mg BEDTIME ORAL 01/13/20 21:00 04/12/20 20:59 Piperacillin Sod/ Tazobactam Sod 3.375 gm/Sodium Chloride 110 ml @ 27.5 mls/hr EVERY 8 HOURS IVPB 01/13/20 06:00 01/18/20 05:59 01/14/20 05:29 Sennosides (Senokot) 8.6 mg BEDTIME ORAL 01/13/20 21:00 02/12/20 20:59 Tramadol HCl (Ultram) 50 mg Q6H PRN ORAL Moderate Pain (Pain Scale 4-6) 01/13/20 02:30 01/20/20 02:29 01/13/20 08:50 Vancomycin HCl (Vanco pharmacy to dose) 1 ea DAILY PRN MISC Per rx protocol 01/13/20 02:15 02/12/20 02:14 Vancomycin HCl 1 gm/Dextrose 275 ml @ 183.708 mls/hr Q24H IVPB 01/13/20 04:00 01/18/20 03:59 01/14/20 03:09 Assessment/Plan Assessment/Plan IMPRESSION: 1. Possible aspiration pneumonia. Followup CXR shows small left pleural effusion 2. UTI. 3. Dementia. 4. Parkinson's. DISCUSSION: Continue abx for UTI and possible aspiration pneumonia Continue oxygen as needed and pulmonary hygiene. I will follow as office technology instructor. Ilene Becerra Omar Syed MD Jan 14, 2020 12:05
--- NOTE | 2020-01-14 15:20 | Infectious Diseases Prog Note ---
Assessment/Plan Assessment/Plan Full consult dictated: A) 1) aspiration pna 2) gram neg uti, complicated uti 3) pmh noted 4) allergies - nkda P) 1) zosyn and vancomycin 2) check cultures, labs and chest x-ray 3) will f/u 4) d/w RN Subjective Constitutional: Denies: fever HEENT: Reports: congestion - mild Respiratory: Reports: shortness of breath - mild Gastrointestinal/Abdominal: Denies: nausea, vomiting, diarrhea Allergies: Coded Allergies: No Known Allergies (Unverified , 09/25/18) Objective Last 24 Hour Vital Signs Date Time Temp Pulse Resp B/P (MAP) Pulse Ox O2 Delivery O2 Flow Rate FiO2 01/14/20 12:00 97.5 62 19 122/60 (80) 98 01/14/20 09:00 Room Air 01/14/20 08:00 97.9 53 22 114/40 (64) 98 01/14/20 06:40 57 16 95 Room Air 21 01/14/20 04:00 97.9 55 22 119/43 (68) 93 01/14/20 00:00 97.9 51 20 90/43 (59) 93 01/13/20 21:00 Room Air 01/13/20 20:00 96.8 61 18 132/65 (87) 95 01/13/20 16:00 98.0 54 19 101/50 (67) 93 Height (Feet): 5 Height (Inches): 0.00 Weight (Pounds): 130 General Appearance: no acute distress HEENT: normocephalic, atraumatic, anicteric Respiratory/Chest: crackles/rales, rhonchi - bilaterally Cardiovascular: normal rate, regular rhythm Microbiology Date/Time Source Procedure Growth Status 01/12/20 22:30 Blood Blood Culture - Preliminary NO GROWTH AFTER 24 HOURS Resulted 01/12/20 22:18 Blood Blood Culture - Preliminary NO GROWTH AFTER 24 HOURS Resulted 01/12/20 22:30 Nasopharynx SARS-CoV-2 RdRp Gene Assay - Final Complete 01/12/20 22:30 Urine,Clean Catch Urine Culture - Preliminary Gram Negative Vishnu Resulted 01/13/20 00:13 Rectum Received Laboratory Tests Test 01/14/20 06:15 White Blood Count 9.7 K/UL (4.8-10.8) Red Blood Count 4.22 M/UL (4.20-5.40) Hemoglobin 11.5 G/DL (12.0-16.0) L Hematocrit 36.6 % (37.0-47.0) L Mean Corpuscular Volume 87 FL (80-99) Mean Corpuscular Hemoglobin 27.3 PG (27.0-31.0) Mean Corpuscular Hemoglobin Concent 31.5 G/DL (32.0-36.0) L Red Cell Distribution Width 14.4 % (11.6-14.8) Platelet Count 224 K/UL (150-450) Mean Platelet Volume 8.1 FL (6.5-10.1) Neutrophils (%) (Auto) 64.0 % (45.0-75.0) Lymphocytes (%) (Auto) 27.4 % (20.0-45.0) Monocytes (%) (Auto) 7.1 % (1.0-10.0) Eosinophils (%) (Auto) 0.6 % (0.0-3.0) Basophils (%) (Auto) 0.9 % (0.0-2.0) Sodium Level 144 MMOL/L (136-145) Potassium Level 3.8 MMOL/L (3.5-5.1) Chloride Level 109 MMOL/L (98-107) H Carbon Dioxide Level 28 MMOL/L (21-32) Anion Gap 8 mmol/L (5-15) Blood Urea Nitrogen 17 mg/dL (7-18) Creatinine 0.9 MG/DL (0.55-1.30) Estimat Glomerular Filtration Rate > 60 mL/min (>60) Glucose Level 123 MG/DL (74-106) H Calcium Level 9.0 MG/DL (8.5-10.1) Total Bilirubin 0.4 MG/DL (0.2-1.0) Aspartate Amino Transf (AST/SGOT) 22 U/L (15-37) Alanine Aminotransferase (ALT/SGPT) 19 U/L (12-78) Alkaline Phosphatase 85 U/L (46-116) Total Protein 7.6 G/DL (6.4-8.2) Albumin 2.9 G/DL (3.4-5.0) L Globulin 4.7 g/dL Albumin/Globulin Ratio 0.6 (1.0-2.7) L Current Medications Medications (Trade) Dose Ordered Sig/Mikey Route PRN Reason Start Time Stop Time Status Last Admin Dose Admin Acetaminophen (Tylenol) 650 mg Q4H PRN ORAL MILD/TEMP 01/13/20 02:30 02/12/20 02:29 Albuterol/ Ipratropium (Albuterol/ Ipratropium) 3 ml Q6H PRN HHN For Cough 01/13/20 03:00 01/18/20 02:59 Apixaban (Eliquis) 2.5 mg BID ORAL 01/13/20 09:00 04/12/20 08:59 01/13/20 08:43 Aspirin (ASA) 81 mg DAILY ORAL 01/13/20 09:00 02/27/20 08:59 01/13/20 08:43 Atenolol (Tenormin) 100 mg DAILY ORAL 01/13/20 09:00 02/12/20 08:59 01/13/20 08:44 Barium Sulfate (Varibar Honey) 250 ml NOW PRN MC RAD 01/13/20 16:00 01/16/20 15:58 Barium Sulfate (Varibar [place]) 240 ml NOW PRN MC RAD 01/13/20 16:00 01/16/20 15:58 Barium Sulfate (Varibar Pudding) 230 ml NOW PRN MC RAD 01/13/20 16:00 01/16/20 15:58 Barium Sulfate (Varibar Thin Liquid powder) 148 gm NOW PRN MC RAD 01/13/20 16:00 01/16/20 15:58 Carbidopa/Levodopa (Sinemet 25/100) 1 tab BID ORAL 01/13/20 09:00 02/12/20 08:59 01/13/20 08:43 Dextrose/Sodium Chloride 1,000 ml @ 75 mls/hr [id number] IV 01/13/20 17:45 02/12/20 17:44 01/14/20 05:29 Divalproex Sodium (Depakote Sprinkles) 500 mg BEDTIME NG 01/13/20 21:00 02/12/20 20:59 Docusate Sodium (Colace) 100 mg TWICE A DAY ORAL 01/13/20 09:00 02/12/20 08:59 01/13/20 08:44 Donepezil HCl (Aricept) 10 mg DAILY ORAL 01/13/20 09:00 02/12/20 08:59 01/13/20 08:43 Gabapentin (Neurontin) 100 mg THREE TIMES A DAY ORAL 01/13/20 09:00 02/12/20 08:59 01/13/20 08:43 Levetiracetam (Keppra) 500 mg EVERY 12 HOURS ORAL 01/13/20 09:00 02/12/20 08:59 01/13/20 08:43 Lorazepam (Ativan) 0.5 mg Q4H PRN ORAL For Anxiety 01/13/20 02:30 01/20/20 02:29 01/13/20 08:44 Magnesium Hydroxide (Mom) 30 ml DAILY PRN ORAL Constipation 01/13/20 02:30 02/12/20 02:29 Mirtazapine (Remeron) 45 mg BEDTIME ORAL 01/13/20 21:00 04/12/20 20:59 Piperacillin Sod/ Tazobactam Sod 3.375 gm/Sodium Chloride 110 ml @ 27.5 mls/hr EVERY 8 HOURS IVPB 01/13/20 06:00 01/18/20 05:59 01/14/20 14:11 Sennosides (Senokot) 8.6 mg BEDTIME ORAL 01/13/20 21:00 02/12/20 20:59 Tramadol HCl (Ultram) 50 mg Q6H PRN ORAL Moderate Pain (Pain Scale 4-6) 01/13/20 02:30 01/20/20 02:29 01/13/20 08:50 Vancomycin HCl (Vanco pharmacy to dose) 1 ea DAILY PRN MISC Per rx protocol 01/13/20 02:15 02/12/20 02:14 Vancomycin HCl 1 gm/Dextrose 275 ml @ 183.708 mls/hr Q24H IVPB 01/13/20 04:00 01/18/20 03:59 01/14/20 03:09 Rola Junior MD Jan 14, 2020 15:20
[2020-01-14 15:55] VITALS: BP 116/43
--- NOTE | 2020-01-14 18:22 | NUR ---
NURSE NOTES: Oral care given,patient nonverbal does not follow commands.IV fluids continue to infuse as ordered.Bed alarm on.Remains NPO.
--- NOTE | 2020-01-14 19:20 | NUR ---
NURSE HAND-OFF: Deborah CASTAÑEDA Important Events on Shift:[] Patient Status: [] Diet: [strict NPO] Pending Orders: [] Pending Results/Labs:[] Pending MD notification:[] Latest Vital Signs: Temperature 98.4 , Pulse 52 , B/P 116 /43 , Respiratory Rate 18 , O2 SAT 93 , Room Air, O2 Flow Rate . Vital Sign Comment: [] Latest Houser Fall Score: 70 Fall Risk: High Risk Safety Measures: Call light Within Reach, Bed Alarm Zone 2, Side Rails Side Rails x2, Bed position Low and Locked. Fall Precautions: y Yellow Socks y Yellow Gown y Door Sign y Patient Fall Education Report given to [].
--- NOTE | 2020-01-14 19:30 | NUR ---
NURSE NOTES: Received patient in bed. Asleep, non verbal. IV site patent and intact. Simmons cath noted, draining well by gravity, yellow urine noted. Bed in lowest position. Call light within reach. Will continue to monitor.
[2020-01-14 20:00] VITALS: BP 112/55
[2020-01-14] MEDS: Sennosides 8.6mg tab ORAL SCH (21:00)
[2020-01-14] MEDS: Depakote 125mg Sprinkles NG SCH (21:00)
--- NOTE | 2020-01-14 21:15 | Consultation ---
DATE OF CONSULTATION: NOTE: BERNICECELMICKI DICTATION Rola Junior M.D. DR: VEE JOB#: [id number] CC:
--- NOTE | 2020-01-14 21:44 | Consultation ---
DATE OF CONSULTATION: 01/14/2020 INFECTIOUS DISEASE CONSULTATION CONSULTING PHYSICIAN: Rola Junior MD. ATTENDING PHYSICIAN: Raymundo Barrera MD. REFERRING PHYSICIAN: Raymundo Barrera MD. REASON FOR CONSULTATION: Gram-negative UTI and pneumonia. CHIEF COMPLAINT: Patient's chief complaint coming in to the hospital is aspiration pneumonia. HISTORY OF PRESENT ILLNESS: This is an 79-year-old female who comes to [facility] with cough, congestion, shortness of breath, and likely aspiration. Patient comes from a [facility] facility. Patient also has complicated gram-negative UTI with weakness. Infectious Disease consultation is requested. Patient was started on Vanco and Zosyn yesterday. Urine culture with gram-negative organisms. Chest x-ray with infiltrates. MAR was noted. Orders were noted. Notes and records were reviewed. Patient will be continued on Vanco and Zosyn for now. REVIEW OF SYSTEMS: CONSTITUTIONAL: Generalized fatigue and weakness. She is mostly nonverbal. HEAD AND NECK: Limited. No obvious head and neck pain upon flexion of the neck. CARDIAC: No chest pain or pressors. GASTROINTESTINAL: No nausea, vomiting, or diarrhea. GENITOURINARY: She has a Simmons. PULMONARY: Mild cough and congestion. No significant secretions. No hemoptysis. SKIN: No rash. EXTREMITIES: Could not assess. NEUROLOGIC: Denies seizures. Generalized fatigue and weakness. Mostly nonverbal. Opens her eyes occasionally. PAST MEDICAL HISTORY: Patient has a history of dementia, Parkinson's, dysphagia, diabetes, hypertension. She is also at risk for aspiration. Other past medical history includes being bed-bound. She also has a history of anxiety, encephalopathy history. ALLERGIES: She has no known drug allergies. No antibiotic allergies. SOCIAL HISTORY: Negative for smoking, alcohol, or drug abuse. FAMILY HISTORY: Noncontributory. Negative for exposure to tuberculosis or cancer. MEDICATIONS: Upon reviewing the MAR, she is on following medications. She is on mirtazapine, Senokot, divalproex, IV fluids, barium, apixaban, aspirin. She is on atenolol, carbidopa, docusate, donepezil, gabapentin, abx - Zosyn Vanco, albuterol, lorazepam, acetaminophen, magnesium hydroxide, and tramadol. Outside medications noted and reconciliated. Antibiotics, Vanco and Zosyn. PHYSICAL EXAMINATION: VITAL SIGNS: Temperature is 97.5, pulse rate is 62, respiratory rate is 19, blood pressure 122/60, saturation 98% on room air. No significant temperature spikes noted. GENERAL: Weak, lethargic. Less short of breath today than yesterday. HEAD AD NECK: Oral exam, no thrush. Eye exam, no icterus. Normocephalic. Neck is supple. No JVD. HEART: Regular. No obvious gallop or murmur. Occasionally bradycardic. ABDOMEN: Soft. Positive bowel sounds. Nontender. LUNGS: Bilateral rhonchi and rales at the bases. SKIN: No rash or dermatitis. MUSCULOSKELETAL: No effusions. Legs are without cellulitis. PERIPHERAL VASCULAR: No cyanosis or gangrene. GENITOURINARY: She has a Simmons. Urine is cloudy. LINE SITES: Without phlebitis. NEUROLOGIC: Generalized weakness, mostly nonverbal, opens eyes occasionally. LABORATORY DATA: White count 9.7, hemoglobin 11.5. Creatinine is 0.9. UA had too many to count white blood cells and 40 to 60 white blood cells, 3+ leukocyte esterase. Cultures, urine culture, greater 100,000 gram-negative rods, identification is pending. COVID and SARS testing is negative. Blood cultures are negative. IMAGING STUDIES: Chest x-ray shows infiltrates. She has left effusion. She has left base infiltrate, atelectasis, airspace disease. It is noted and reviewed. ASSESSMENT AND PLAN: 1. Patient has what looks like an aspiration healthcare-acquired pneumonia, but she also has complicated gram-negative UTI. At this time, I agree with Vanco and Zosyn for MRSA and gram-negative coverage. Continue Vanco and Zosyn for aspiration healthcare-acquired pneumonia, rule out community-acquired pneumonia. Patient also will be continued on Zosyn for gram-negative UTI and complicated UTI. Check urine culture. Followup laboratories, chest x-ray. 2. Diabetes mellitus. 3. Hypertension. 4. Blood sugar and blood pressure treatment per primary care team for diabetes and hypertension. 5. Parkinson's. 6. Dementia. 7. Dysphagia. 8. Aspiration risk. 9. Weakness. 10. Continue treatment per primary consultants. 11. No known drug allergies. 12. Social history is negative. 13. Family history is noncontributory. 14. MAR was noted. 15. Case was discussed with MADDY. 16. Continue treatment per primary consultants. 17. Orders were noted and entered. 18. Skin care protocol. Rola Junior M.D. DR: VEE JOB#: [id number] CC: SHEKHAR
--- NOTE | 2020-01-14 23:36 | Internal Med Progress Note ---
Subjective Date of Service: Jan 14, 2020 Physician Name Raymundo Harley Attending Physician Raymundo Harley MD Current Medications Medications (Trade) Dose Ordered Sig/Mikey Route PRN Reason Start Time Stop Time Status Last Admin Dose Admin Acetaminophen (Tylenol) 650 mg Q4H PRN ORAL MILD/TEMP 01/13/20 02:30 02/12/20 02:29 Albuterol/ Ipratropium (Albuterol/ Ipratropium) 3 ml Q6H PRN HHN For Cough 01/13/20 03:00 01/18/20 02:59 Apixaban (Eliquis) 2.5 mg BID ORAL 01/13/20 09:00 04/12/20 08:59 01/13/20 08:43 Aspirin (ASA) 81 mg DAILY ORAL 01/13/20 09:00 02/27/20 08:59 01/13/20 08:43 Atenolol (Tenormin) 100 mg DAILY ORAL 01/13/20 09:00 02/12/20 08:59 01/13/20 08:44 Barium Sulfate (Varibar Honey) 250 ml NOW PRN MC RAD 01/13/20 16:00 01/16/20 15:58 Barium Sulfate (Varibar [place]) 240 ml NOW PRN MC RAD 01/13/20 16:00 01/16/20 15:58 Barium Sulfate (Varibar Pudding) 230 ml NOW PRN MC RAD 01/13/20 16:00 01/16/20 15:58 Barium Sulfate (Varibar Thin Liquid powder) 148 gm NOW PRN MC RAD 01/13/20 16:00 01/16/20 15:58 Carbidopa/Levodopa (Sinemet 25/100) 1 tab BID ORAL 01/13/20 09:00 02/12/20 08:59 01/13/20 08:43 Dextrose/Sodium Chloride 1,000 ml @ 75 mls/hr [id number] IV 01/13/20 17:45 02/12/20 17:44 01/14/20 21:37 Divalproex Sodium (Depakote Sprinkles) 500 mg BEDTIME NG 01/13/20 21:00 02/12/20 20:59 Docusate Sodium (Colace) 100 mg TWICE A DAY ORAL 01/13/20 09:00 02/12/20 08:59 01/13/20 08:44 Donepezil HCl (Aricept) 10 mg DAILY ORAL 01/13/20 09:00 02/12/20 08:59 01/13/20 08:43 Gabapentin (Neurontin) 100 mg THREE TIMES A DAY ORAL 01/13/20 09:00 02/12/20 08:59 01/13/20 08:43 Levetiracetam (Keppra) 500 mg EVERY 12 HOURS ORAL 01/13/20 09:00 02/12/20 08:59 01/13/20 08:43 Lorazepam (Ativan) 0.5 mg Q4H PRN ORAL For Anxiety 01/13/20 02:30 01/20/20 02:29 01/13/20 08:44 Magnesium Hydroxide (Mom) 30 ml DAILY PRN ORAL Constipation 01/13/20 02:30 02/12/20 02:29 Mirtazapine (Remeron) 45 mg BEDTIME ORAL 01/13/20 21:00 04/12/20 20:59 Piperacillin Sod/ Tazobactam Sod 3.375 gm/Sodium Chloride 110 ml @ 27.5 mls/hr EVERY 8 HOURS IVPB 01/13/20 06:00 01/18/20 05:59 01/14/20 21:37 Sennosides (Senokot) 8.6 mg BEDTIME ORAL 01/13/20 21:00 02/12/20 20:59 Tramadol HCl (Ultram) 50 mg Q6H PRN ORAL Moderate Pain (Pain Scale 4-6) 01/13/20 02:30 01/20/20 02:29 01/13/20 08:50 Vancomycin HCl (Vanco pharmacy to dose) 1 ea DAILY PRN MISC Per rx protocol 01/13/20 02:15 02/12/20 02:14 Vancomycin HCl 1 gm/Dextrose 275 ml @ 183.708 mls/hr Q24H IVPB 01/13/20 04:00 01/18/20 03:59 01/14/20 03:09 Allergies: Coded Allergies: No Known Allergies (Unverified , 09/25/18) ROS Limited/Unobtainable: Yes All Systems: reviewed and negative except above Subjective non verbal NPO by REGIONAL MEDICAL DIRECTOR attempt to place NGT by RN unsuccessful GI called Objective Last Vital Signs Date Time Temp Pulse Resp B/P (MAP) Pulse Ox O2 Delivery O2 Flow Rate FiO2 01/14/20 20:00 98.1 52 18 112/55 (74) 93 01/14/20 19:54 Room Air 21 General Appearance: no apparent distress, lethargic EENT: other - eyes close open to pain stimuli Neck: non-tender, normal inspection Cardiovascular: normal rate, regular rhythm Respiratory/Chest: rhonchi - bilaterally Abdomen: non tender, soft, no organomegaly Extremities: non-tender, other - contracted LE Neurologic: disoriented, aphasia Skin: warm/dry Laboratory Tests Test 01/14/20 06:15 White Blood Count 9.7 K/UL (4.8-10.8) Red Blood Count 4.22 M/UL (4.20-5.40) Hemoglobin 11.5 G/DL (12.0-16.0) L Hematocrit 36.6 % (37.0-47.0) L Mean Corpuscular Volume 87 FL (80-99) Mean Corpuscular Hemoglobin 27.3 PG (27.0-31.0) Mean Corpuscular Hemoglobin Concent 31.5 G/DL (32.0-36.0) L Red Cell Distribution Width 14.4 % (11.6-14.8) Platelet Count 224 K/UL (150-450) Mean Platelet Volume 8.1 FL (6.5-10.1) Neutrophils (%) (Auto) 64.0 % (45.0-75.0) Lymphocytes (%) (Auto) 27.4 % (20.0-45.0) Monocytes (%) (Auto) 7.1 % (1.0-10.0) Eosinophils (%) (Auto) 0.6 % (0.0-3.0) Basophils (%) (Auto) 0.9 % (0.0-2.0) Sodium Level 144 MMOL/L (136-145) Potassium Level 3.8 MMOL/L (3.5-5.1) Chloride Level 109 MMOL/L (98-107) H Carbon Dioxide Level 28 MMOL/L (21-32) Anion Gap 8 mmol/L (5-15) Blood Urea Nitrogen 17 mg/dL (7-18) Creatinine 0.9 MG/DL (0.55-1.30) Estimat Glomerular Filtration Rate > 60 mL/min (>60) Glucose Level 123 MG/DL (74-106) H Calcium Level 9.0 MG/DL (8.5-10.1) Total Bilirubin 0.4 MG/DL (0.2-1.0) Aspartate Amino Transf (AST/SGOT) 22 U/L (15-37) Alanine Aminotransferase (ALT/SGPT) 19 U/L (12-78) Alkaline Phosphatase 85 U/L (46-116) Total Protein 7.6 G/DL (6.4-8.2) Albumin 2.9 G/DL (3.4-5.0) L Globulin 4.7 g/dL Albumin/Globulin Ratio 0.6 (1.0-2.7) L Microbiology Date/Time Source Procedure Growth Status 01/12/20 22:30 Blood Blood Culture - Preliminary NO GROWTH AFTER 24 HOURS Resulted 01/12/20 22:18 Blood Blood Culture - Preliminary NO GROWTH AFTER 24 HOURS Resulted 01/12/20 22:30 Nasopharynx SARS-CoV-2 RdRp Gene Assay - Final Complete 01/12/20 22:30 Urine,Clean Catch Urine Culture - Preliminary Gram Negative Vishnu Resulted 01/13/20 00:13 Rectum Received Intake and Output 01/13/20 01/14/20 19:00 07:00 Output Total 500 ml Balance -500 ml Output Urine Total 500 ml # Bowel Movements 1 Assessment/Plan Status: stable, unchanged Assessment/Plan Impression: acute hypoxic resp failure fever hypotension possible early shock acute toxic encephalopathy UTI parkinson's disease dementia bedbound status senile debility anxiety PLAN: IVF NPO GI consult for NGT placement change keppra to IV IV abx f/u cx pulm/ID eval NGT failed by RN ST pain control aspiration precaution oxygen FULL CODE. d/w amy marcuskan over 40 min spent today. over 50% with counseling , coordinate of care , advance care planning d/w amy. RAYMUNDO HARLEY INTERNAL MEDICINE [phone] Raymundo Harley MD Jan 14, 2020 23:36
[2020-01-15] VITALS (7 sets, daily range): BP systolic 108–118; BP diastolic 47–75
[2020-01-15] MEDS: levETIRAcetam 500mg/NS100ml 100 ML IVPB SCH ×3 (00:41→20:07)
[2020-01-15] MEDS: Vancomycin 1gm/D5W 275ml IVPB SCH ×2 (04:00)
[2020-01-15] MEDS: Piperacillin/Tazobactam 3.375 GM in NS 110 ML IVPB SCH ×3 (05:45→21:49)
--- NOTE | 2020-01-15 06:39 | NUR ---
NURSE NOTES: Call and left message to Dr. Iverson regarding positive result for VRE rectum. Waiting a call back.
--- NOTE | 2020-01-15 07:38 | NUR ---
NURSE HAND-OFF: Important Events on Shift:O2sat 88%~90% with room air. RT called, put 3L oxygen based on ABG result. 100% with 3L. Positive result for VRE rectum. Notified Dr. Iverson, waiting a call back. Patient Status: Stable Diet: NPO Pending Orders: Pending Results/Labs: Pending MD notification: Latest Vital Signs: Temperature 97.8 , Pulse 54 , B/P 118 /56 , Respiratory Rate 18 , O2 SAT 99 , Nasal Cannula, O2 Flow Rate 3.0 . Vital Sign Comment: Latest Houser Fall Score: 70 Fall Risk: High Risk Safety Measures: Call light Within Reach, Bed Alarm Zone 2, Side Rails Side Rails x2, Bed position Low and Locked. Fall Precautions: Yellow Socks Yellow Gown Door Sign Patient Fall Education Report given to Luz CASTAÑEDA.
--- NOTE | 2020-01-15 08:00 | NUR ---
NURSE NOTES: received patient laying in bed, she moans from time to time. Patient is on strict NPO, no IV pain medication ordered. Placed a call to dr Barrera, awaiting call back. On 3L O2/mon, no sign of respiratory distress. IV access on the right hand, receives D5NS@ 75cc/hr. Bed locked at the lowest position possible, call light within easy reach, siderails up x3, on bed alarm, padded siderails. Will continue to monitor patient and follow up with the plan of care.
--- NOTE | 2020-01-15 08:38 | NUR ---
CHARGE NURSE NOTE: Ammonia level 41. notified.
[2020-01-15] MEDS: Donepezil 10mg tab ORAL SCH (09:00)
[2020-01-15] MEDS: Levodopa/Carbidopa 25/100 tab ORAL SCH ×2 (09:00→18:00)
[2020-01-15] MEDS: Docusate 100mg cap ORAL SCH ×2 (09:00→18:00)
[2020-01-15] MEDS: Aspirin Baby 81mg ORAL SCH (09:00)
[2020-01-15] MEDS: Enoxaparin 40mg Inj SUBQ SCH (09:42)
[2020-01-15] MEDS: D5NS 1,000 ML IV SCH ×2 (09:45→21:50)
--- NOTE | 2020-01-15 09:59 | Pulmonology Progress Note ---
Subjective Interval Events: Follow up CXR shows small left effusion Constitutional: Denies: fever HEENT: Repors: no symptoms Respiratory: Reports: no symptoms Cardiovascular: Reports: no symptoms Gastrointestinal/Abdominal: Denies: nausea, vomiting, diarrhea Genitourinary: Reports: no symptoms Allergies: Coded Allergies: No Known Allergies (Unverified , 09/25/18) Objective Last 24 Hour Vital Signs Date Time Temp Pulse Resp B/P (MAP) Pulse Ox O2 Delivery O2 Flow Rate FiO2 01/15/20 09:00 60 116/49 01/15/20 08:00 98.4 60 18 116/49 (71) 98 01/15/20 04:00 97.8 54 18 118/56 (76) 99 01/15/20 00:00 97.9 56 18 114/52 (72) 100 01/14/20 21:00 Nasal Cannula 3.0 01/14/20 20:00 98.1 52 18 112/55 (74) 93 01/14/20 19:54 59 18 95 Room Air 21 01/14/20 15:55 98.4 52 18 116/43 (67) 93 01/14/20 12:00 97.5 62 19 122/60 (80) 98 Intake and Output 01/14/20 01/15/20 19:00 07:00 Intake Total 860.0 ml 1337.500 ml Output Total 275 ml 250 ml Balance 585.0 ml 1087.500 ml IV Total 860.0 ml 1337.500 ml Output Urine Total 275 ml 250 ml General Appearance: no acute distress HEENT: normocephalic Respiratory: chest wall non-tender Cardiovascular: normal peripheral pulses Abdomen: normal bowel sounds Microbiology Date/Time Source Procedure Growth Status 01/12/20 22:30 Blood Blood Culture - Preliminary NO GROWTH AFTER 48 HOURS Resulted 01/12/20 22:18 Blood Blood Culture - Preliminary NO GROWTH AFTER 48 HOURS Resulted 01/12/20 22:30 Nasopharynx SARS-CoV-2 RdRp Gene Assay - Final Complete 01/12/20 22:30 Urine,Clean Catch Urine Culture - Preliminary Gram Negative Vishnu Resulted 01/13/20 00:13 Rectum - Final NO CARBAPENEM-RESISTANT ENTEROBACTERI... Complete 01/13/20 00:13 Rectum VRE Culture - Final Enterococcus Faecalis - Vre Complete Laboratory Tests 01/14/20 23:49: Arterial Blood pH 7.378, Arterial Blood Partial Pressure CO2 37.1, Arterial Blood Partial Pressure O2 75.6, Arterial Blood HCO3 21.4L, Arterial Blood Oxygen Saturation 93.8L, Arterial Blood Base Excess -3.3L, Luke Test Positive 01/15/20 07:25: Ammonia 41H Current Medications Medications (Trade) Dose Ordered Sig/Mikey Route PRN Reason Start Time Stop Time Status Last Admin Dose Admin Acetaminophen (Tylenol) 650 mg Q4H PRN ORAL MILD/TEMP 01/13/20 02:30 02/12/20 02:29 Albuterol/ Ipratropium (Albuterol/ Ipratropium) 3 ml Q6H PRN HHN For Cough 01/13/20 03:00 01/18/20 02:59 Aspirin (ASA) 81 mg DAILY ORAL 01/13/20 09:00 02/27/20 08:59 01/13/20 08:43 Atenolol (Tenormin) 100 mg DAILY ORAL 01/13/20 09:00 02/12/20 08:59 01/13/20 08:44 Barium Sulfate (Varibar Honey) 250 ml NOW PRN RAD 01/13/20 16:00 01/16/20 15:58 Barium Sulfate (Varibar [place]) 240 ml NOW PRN RAD 01/13/20 16:00 01/16/20 15:58 Barium Sulfate (Varibar Pudding) 230 ml NOW PRN RAD 01/13/20 16:00 01/16/20 15:58 Barium Sulfate (Varibar Thin Liquid powder) 148 gm NOW PRN RAD 01/13/20 16:00 01/16/20 15:58 Carbidopa/Levodopa (Sinemet 25/100) 1 tab BID ORAL 01/13/20 09:00 02/12/20 08:59 01/13/20 08:43 Dextrose/Sodium Chloride 1,000 ml @ 75 mls/hr [id number] IV 01/13/20 17:45 02/12/20 17:44 01/15/20 09:45 Divalproex Sodium (Depakote Sprinkles) 500 mg BEDTIME NG 01/13/20 21:00 02/12/20 20:59 Docusate Sodium (Colace) 100 mg TWICE A DAY ORAL 01/13/20 09:00 02/12/20 08:59 01/13/20 08:44 Donepezil HCl (Aricept) 10 mg DAILY ORAL 01/13/20 09:00 02/12/20 08:59 01/13/20 08:43 Enoxaparin Sodium (Lovenox) 40 mg DAILY SUBQ 01/15/20 09:00 04/14/20 08:59 01/15/20 09:42 Gabapentin (Neurontin) 100 mg THREE TIMES A DAY ORAL 01/13/20 09:00 02/12/20 08:59 01/13/20 08:43 Levetiracetam 100 ml @ 400 mls/hr Q12HR IVPB 01/14/20 23:45 04/13/20 23:44 01/15/20 09:36 Lorazepam (Ativan) 0.5 mg Q4H PRN ORAL For Anxiety 01/13/20 02:30 01/20/20 02:29 01/13/20 08:44 Magnesium Hydroxide (Mom) 30 ml DAILY PRN ORAL Constipation 01/13/20 02:30 02/12/20 02:29 Mirtazapine (Remeron) 45 mg BEDTIME ORAL 01/13/20 21:00 04/12/20 20:59 Piperacillin Sod/ Tazobactam Sod 3.375 gm/Sodium Chloride 110 ml @ 27.5 mls/hr EVERY 8 HOURS IVPB 01/13/20 06:00 01/18/20 05:59 01/15/20 05:45 Sennosides (Senokot) 8.6 mg BEDTIME ORAL 01/13/20 21:00 02/12/20 20:59 Tramadol HCl (Ultram) 50 mg Q6H PRN ORAL Moderate Pain (Pain Scale 4-6) 01/13/20 02:30 01/20/20 02:29 01/13/20 08:50 Vancomycin HCl (Vanco pharmacy to dose) 1 ea DAILY PRN MISC Per rx protocol 01/13/20 02:15 02/12/20 02:14 Vancomycin HCl 1 gm/Dextrose 275 ml @ 183.708 mls/hr Q24H IVPB 01/13/20 04:00 01/18/20 03:59 01/15/20 04:00 Assessment/Plan Assessment/Plan IMPRESSION: 1. Possible aspiration pneumonia. Followup CXR shows small left pleural effusion 2. UTI. 3. Dementia. 4. Parkinson's. DISCUSSION: Continue abx for UTI and possible aspiration pneumonia Continue oxygen as needed and pulmonary hygiene. I will follow as insurance clerk. Ilene Becerra Omar Syed MD Jan 15, 2020 09:59
[2020-01-15] MEDS ORDERED: Morphine Sulfate 2mg/ml Inj(IV/IM USE ONLY) IVP PRN (13:30)
--- NOTE | 2020-01-15 19:38 | NUR ---
NURSE HAND-OFF: Important Events on Shift:[n/a] Patient Status: [stable] Diet: [strict NPO] Pending Orders: [] Pending Results/Labs:[] Pending MD notification:[] Latest Vital Signs: Temperature 98.4 , Pulse 53 , B/P 108 /62 , Respiratory Rate 19 , O2 SAT 98 , Nasal Cannula, O2 Flow Rate 3.0 . Vital Sign Comment: [] Latest Houser Fall Score: 70 Fall Risk: High Risk Safety Measures: Call light Within Reach, Bed Alarm Zone 2, Side Rails Side Rails x2, Bed position Low and Locked. Fall Precautions: Yellow Socks Yellow Gown Door Sign Patient Fall Education Report given to [RN Chino Rodriguez].
--- NOTE | 2020-01-15 19:42 | NUR ---
NURSE NOTES: Received report from MADDY Escobar. Pt moaning in bed, AAO x 0, on NC 3L. Pt is on strict NPO. Simmons intact and secured to the leg. IV site intact and running IVF. Fall, aspiration, and seizure precaution maintained. Suction setup at bedside. Bed locked, lowest position, alarm on, side rails up, call light within reach. Will continue to monitor.
[2020-01-15] MEDS: Depakote 125mg Sprinkles NG SCH (20:05)
[2020-01-15] MEDS: Sennosides 8.6mg tab ORAL SCH (20:05)
--- NOTE | 2020-01-15 21:38 | Internal Med Progress Note ---
Subjective Date of Service: Jan 15, 2020 Physician Name Raymundo Harley Attending Physician Raymundo Harley MD Current Medications Medications (Trade) Dose Ordered Sig/Mikey Route PRN Reason Start Time Stop Time Status Last Admin Dose Admin Acetaminophen (Tylenol) 650 mg Q4H PRN ORAL MILD/TEMP 01/13/20 02:30 02/12/20 02:29 Albuterol/ Ipratropium (Albuterol/ Ipratropium) 3 ml Q6H PRN HHN For Cough 01/13/20 03:00 01/18/20 02:59 Aspirin (ASA) 81 mg DAILY ORAL 01/13/20 09:00 02/27/20 08:59 01/13/20 08:43 Barium Sulfate (Varibar Honey) 250 ml NOW PRN MC RAD 01/13/20 16:00 01/16/20 15:58 Barium Sulfate (Varibar [place]) 240 ml NOW PRN MC RAD 01/13/20 16:00 01/16/20 15:58 Barium Sulfate (Varibar Pudding) 230 ml NOW PRN MC RAD 01/13/20 16:00 01/16/20 15:58 Barium Sulfate (Varibar Thin Liquid powder) 148 gm NOW PRN MC RAD 01/13/20 16:00 01/16/20 15:58 Carbidopa/Levodopa (Sinemet 25/100) 1 tab BID ORAL 01/13/20 09:00 02/12/20 08:59 01/13/20 08:43 Dextrose/Sodium Chloride 1,000 ml @ 75 mls/hr [id number] IV 01/13/20 17:45 02/12/20 17:44 01/15/20 09:45 Divalproex Sodium (Depakote Sprinkles) 500 mg BEDTIME NG 01/13/20 21:00 02/12/20 20:59 Docusate Sodium (Colace) 100 mg TWICE A DAY ORAL 01/13/20 09:00 02/12/20 08:59 01/13/20 08:44 Donepezil HCl (Aricept) 10 mg DAILY ORAL 01/13/20 09:00 02/12/20 08:59 01/13/20 08:43 Enoxaparin Sodium (Lovenox) 40 mg DAILY SUBQ 01/15/20 09:00 04/14/20 08:59 01/15/20 09:42 Gabapentin (Neurontin) 100 mg THREE TIMES A DAY ORAL 01/13/20 09:00 02/12/20 08:59 01/13/20 08:43 Levetiracetam 100 ml @ 400 mls/hr Q12HR IVPB 01/14/20 23:45 04/13/20 23:44 01/15/20 20:07 Lorazepam (Ativan) 0.5 mg Q4H PRN ORAL For Anxiety 01/13/20 02:30 01/20/20 02:29 01/13/20 08:44 Magnesium Hydroxide (Mom) 30 ml DAILY PRN ORAL Constipation 01/13/20 02:30 02/12/20 02:29 Mirtazapine (Remeron) 45 mg BEDTIME ORAL 01/13/20 21:00 04/12/20 20:59 Morphine Sulfate (Morphine Sulfate) 2 mg Q4H PRN IVP Severe Pain (Pain Scale 7-10) 01/15/20 17:30 01/22/20 13:29 Piperacillin Sod/ Tazobactam Sod 3.375 gm/Sodium Chloride 110 ml @ 27.5 mls/hr EVERY 8 HOURS IVPB 01/13/20 06:00 01/18/20 05:59 01/15/20 15:49 Sennosides (Senokot) 8.6 mg BEDTIME ORAL 01/13/20 21:00 02/12/20 20:59 Tramadol HCl (Ultram) 50 mg Q6H PRN ORAL Moderate Pain (Pain Scale 4-6) 01/13/20 02:30 01/20/20 02:29 01/13/20 08:50 Vancomycin HCl (Vanco pharmacy to dose) 1 ea DAILY PRN MISC Per rx protocol 01/13/20 02:15 02/12/20 02:14 Vancomycin HCl 1 gm/Dextrose 275 ml @ 183.708 mls/hr Q24H IVPB 01/13/20 04:00 01/18/20 03:59 01/15/20 04:00 Allergies: Coded Allergies: No Known Allergies (Unverified , 09/25/18) ROS Limited/Unobtainable: Yes Subjective non verbal NPO by LOGISTICS RESEARCH ENGINEER attempt to place NGT by RN unsuccessful GI called Objective Last Vital Signs Date Time Temp Pulse Resp B/P (MAP) Pulse Ox O2 Delivery O2 Flow Rate FiO2 01/15/20 20:47 Nasal Cannula 3.0 01/15/20 20:00 98.4 56 20 111/75 (87) 94 01/14/20 19:54 21 General Appearance: no apparent distress, lethargic EENT: other - eye closed Cardiovascular: normal rate, regular rhythm Respiratory/Chest: rhonchi - left Abdomen: normal bowel sounds, non tender, soft Extremities: other - contracture Neurologic: disoriented, aphasia Skin: warm/dry Laboratory Tests Test 01/14/20 23:49 01/15/20 07:25 Arterial Blood pH 7.378 (7.350-7.450) Arterial Blood Partial Pressure CO2 37.1 mmHg (35.0-45.0) Arterial Blood Partial Pressure O2 75.6 mmHg (75.0-100.0) Arterial Blood HCO3 21.4 mmol/L (22.0-26.0) L Arterial Blood Oxygen Saturation 93.8 % (95-100) L Arterial Blood Base Excess -3.3 (-2-2) L Luke Test Positive Ammonia 41 umol/L (11-32) H Microbiology Date/Time Source Procedure Growth Status 01/12/20 22:30 Blood Blood Culture - Preliminary NO GROWTH AFTER 48 HOURS Resulted 01/12/20 22:18 Blood Blood Culture - Preliminary NO GROWTH AFTER 48 HOURS Resulted 01/13/20 00:13 Nasal Nares MRSA Culture - Final NO METHICILLIN RESISTANT STAPH AUREUS... Complete 01/12/20 22:30 Nasopharynx SARS-CoV-2 RdRp Gene Assay - Final Complete 01/12/20 22:30 Urine,Clean Catch Urine Culture - Preliminary Gram Negative Vishnu Resulted 01/13/20 00:13 Rectum - Final NO CARBAPENEM-RESISTANT ENTEROBACTERI... Complete 01/13/20 00:13 Rectum VRE Culture - Final Enterococcus Faecalis - Vre Complete Intake and Output 01/14/20 01/15/20 19:00 07:00 Intake Total 860.0 ml 1337.500 ml Output Total 275 ml 250 ml Balance 585.0 ml 1087.500 ml IV Total 860.0 ml 1337.500 ml Output Urine Total 275 ml 250 ml Assessment/Plan Status: stable, progressing Assessment/Plan Impression: acute hypoxic resp failure fever hypotension possible early shock acute toxic encephalopathy UTI- GNR parkinson's disease dementia with behavior disturbance sinus bradycardia bedbound status senile debility anxiety VRE colonization a PLAN: IVF NPO GI consult for NGT placement change keppra to IV ammonia 41 ABG noted PCo2 normal DC atenolol due to bradycardia IV abx f/u cx pulm/ID eval NGT failed by RN pain control aspiration precaution oxygen morphine prn pain IV FULL CODE. d/w amy alonzo over 35 min spent today. over 50% with counseling , coordinate of care , advance care planning d/w son. RAYMUNDO HARLEY MD INTERNAL MEDICINE [phone] Raymundo Harley MD Jan 15, 2020 21:38
[2020-01-15] MEDS: Morphine Sulfate 2mg/ml Inj(IV/IM USE ONLY) IVP PRN (21:50)
[2020-01-16] MEDS: Vancomycin 1gm/D5W 275ml IVPB SCH ×2 (03:10)
[2020-01-16 03:58] VITALS: BP 130/52
[2020-01-16] MEDS: Morphine Sulfate 2mg/ml Inj(IV/IM USE ONLY) IVP PRN ×2 (04:04→11:52)
[2020-01-16] MEDS: Piperacillin/Tazobactam 3.375 GM in NS 110 ML IVPB SCH ×3 (05:02→21:40)
--- NOTE | 2020-01-16 06:25 | NUR ---
NURSE HAND-OFF: Important Events on Shift:pain Patient Status: stable Diet: NPO Pending Orders: Dobhoff insertion by Dr. Rolle Pending Results/Labs:N Pending MD notification:N Latest Vital Signs: Temperature 97.7 , Pulse 58 , B/P 130 /52 , Respiratory Rate 18 , O2 SAT 97 , Nasal Cannula, O2 Flow Rate 3.0 . Vital Sign Comment: Latest Houser Fall Score: 70 Fall Risk: High Risk Safety Measures: Call light Within Reach, Bed Alarm Zone 2, Side Rails Side Rails x2, Bed position Low and Locked. Fall Precautions: Yellow Socks Yellow Gown Door Sign Patient Fall Education Addendum: 01/16/20 at 0712 by SANJUAINTA NAJERA RN RN HAND-OFF: Report given to Julissa.
[2020-01-16 07:27] LABS: BASOPHILS % (AUTO) 0.3 % (0.0-2.0); EOSINOPHILS % (AUTO) 2.1 % (0.0-3.0); HEMATOCRIT 32.2 % (37.0-47.0); LYMPHOCYTES % (AUTO) 23.1 % (20.0-45.0); MEAN CORPUSCULAR VOLUME 88 FL (80-99); MONOCYTES % (AUTO) 5.7 % (1.0-10.0); NEUTROPHILS % (AUTO) 68.8 % (45.0-75.0); PLATELET COUNT 189 K/UL (150-450); RED BLOOD COUNT 3.66 M/UL (4.20-5.40); RED CELL DISTRIBUTION WIDTH 14.4 % (11.6-14.8); WHITE BLOOD COUNT 8.4 K/UL (4.8-10.8)
[2020-01-16 07:28] LABS: PHOSPHORUS 2.8 MG/DL (2.5-4.9)
[2020-01-16 07:40] LABS: ALANINE AMINOTRANSFERASE 18 U/L (12-78); ALBUMIN 2.5 G/DL (3.4-5.0); ALBUMIN/GLOBULIN RATIO 0.6 (1.0-2.7); ALKALINE PHOSPHATASE 56 U/L (46-116); ANION GAP 8 mmol/L (5-15); ASPARTATE AMINO TRANSFERASE 19 U/L (15-37); BILIRUBIN,TOTAL 0.4 MG/DL (0.2-1.0); BLOOD UREA NITROGEN 8 mg/dL (7-18); CALCIUM 8.4 MG/DL (8.5-10.1); CARBON DIOXIDE 26 MMOL/L (21-32); CHLORIDE 115 MMOL/L (98-107); CREATININE 0.9 MG/DL (0.55-1.30); POTASSIUM 2.8 MMOL/L (3.5-5.1); SODIUM 149 MMOL/L (136-145)
--- NOTE | 2020-01-16 07:46 | NUR ---
NURSE NOTES: Report received from Carol CASTAÑEDA. Patient seen on rounds, asleep but rousable to touch and light shaking, O2 at 3lpm via NC, no signs of respiratory distress, HOB at 45 degrees, FLACC score 0. Pt is currently NPO due to high aspiration risk, nurse reports Dr. Rolle will insert Dobhoff (NGT) today, supplies at bedside. PIV on right wrist patent and infusing IVF as ordered. Skin is intact with optifoam for skin breakdown prevention. Bed low and locked, siderails up x2 and padded, zone alarms on 1. Will continue to monitor. Addendum: 01/16/20 at 0749 by Julissa Rodríguez RN Iris secured and draining well.
--- NOTE | 2020-01-16 07:49 | Diagnostic Imaging Report ---
EXAM: XR Chest, 1 View CLINICAL HISTORY: INFECT TECHNIQUE: Frontal view of the chest. COMPARISON: Chest radiograph January 14, 2020 FINDINGS/IMPRESSION: Patchy airspace opacity within the right midlung field. Small bilateral pleural effusions, left greater than right. Overall, the degree of pleural effusion on the left has improved. No pneumothorax. Cardiomegaly. Calcified aorta.
[2020-01-16 08:00] VITALS: BP 134/60
--- NOTE | 2020-01-16 08:33 | NUR ---
NURSE NOTES: Left urgent message with Dr. Barrera re: abnormal lab results (Na: 149, K: 2.8), awaiting callback.
[2020-01-16] MEDS: levETIRAcetam 500mg/NS100ml 100 ML IVPB SCH ×2 (08:39→20:27)
[2020-01-16] MEDS: Enoxaparin 40mg Inj SUBQ SCH (08:41)
[2020-01-16] MEDS: Levodopa/Carbidopa 25/100 tab ORAL SCH ×2 (09:00→17:01)
[2020-01-16] MEDS: Aspirin Baby 81mg ORAL SCH (09:00)
[2020-01-16] MEDS: Docusate 100mg cap ORAL SCH ×2 (09:00→17:01)
[2020-01-16] MEDS: Donepezil 10mg tab ORAL SCH (09:00)
--- NOTE | 2020-01-16 09:00 | NUR ---
NURSE NOTES: Received orders from Dr. Barrera to administer KCL 10meqs x 8 bags over 8 hours, change to D5 1/2 NS at same rate. Orders noted and carried out.
--- NOTE | 2020-01-16 09:15 | NUR ---
NURSE NOTES: Dr. Rolle inserted NGT at bedside Fr. 8 on left nares at level 78cm. Abdominal xray obtained.
[2020-01-16] MEDS: D5 1/2NS 1,000 ML IV SCH (09:45)
[2020-01-16] MEDS: LORazepam Inj 2mg/ml 1ml IV PRN (09:57)
--- NOTE | 2020-01-16 09:57 | General Progress Note ---
Assessment/Plan Problem List: (1) Diabetes mellitus ICD Codes: E11.9 - Type 2 diabetes mellitus without complications SNOMED: 70196202 (2) HTN (hypertension) ICD Codes: I10 - Essential (primary) hypertension SNOMED: 35850668 (3) Parkinson disease ICD Codes: G20 - Parkinson's disease SNOMED: 36376502 (4) Intractable nausea and vomiting ICD Codes: R11.2 - Nausea with vomiting, unspecified SNOMED: 383118558 (5) Urinary tract infection ICD Codes: N39.0 - Urinary tract infection, site not specified SNOMED: 35606315 Status: stable, progressing Assessment/Plan: dysphagia s/p NGT placement CXR and start feeding if in the right place swallow eval Subjective ROS Limited/Unobtainable: No Allergies: Coded Allergies: No Known Allergies (Unverified , 09/25/18) Objective Last 24 Hour Vital Signs Date Time Temp Pulse Resp B/P (MAP) Pulse Ox O2 Delivery O2 Flow Rate FiO2 01/16/20 08:00 97.8 62 18 134/60 (84) 98 01/16/20 03:58 97.7 58 18 130/52 (78) 97 01/15/20 23:38 97.9 51 20 118/68 (85) 97 01/15/20 20:47 Nasal Cannula 3.0 01/15/20 20:00 98.4 56 20 111/75 (87) 94 01/15/20 16:15 98.4 01/15/20 16:00 98.2 53 19 108/62 (77) 98 01/15/20 12:00 99.0 51 19 112/47 (68) 98 Intake and Output 01/15/20 01/16/20 19:00 07:00 Intake Total 894.5 ml Output Total 300 ml 300 ml Balance 594.5 ml -300 ml IV Total 894.5 ml Output Urine Total 300 ml 300 ml Laboratory Tests 01/16/20 06:35: White Blood Count 8.4, Red Blood Count 3.66L, Hemoglobin 10.0L, Hematocrit 32.2L , Mean Corpuscular Volume 88, Mean Corpuscular Hemoglobin 27.4, Mean Corpuscular Hemoglobin Concent 31.2L, Red Cell Distribution Width 14.4, Platelet Count 189, Mean Platelet Volume 8.3, Neutrophils (%) (Auto) 68.8, Lymphocytes (%) (Auto) 23.1, Monocytes (%) (Auto) 5.7, Eosinophils (%) (Auto) 2.1, Basophils (%) (Auto) 0.3, Sodium Level 149H, Potassium Level 2.8L, Chloride Level 115H, Carbon Dioxide Level 26, Anion Gap 8, Blood Urea Nitrogen 8 , Creatinine 0.9, Estimat Glomerular Filtration Rate > 60, Glucose Level 130H, Calcium Level 8.4L, Phosphorus Level 2.8, Magnesium Level 1.9, Total Bilirubin 0.4, Aspartate Amino Transf (AST/SGOT) 19, Alanine Aminotransferase (ALT/SGPT) 18, Alkaline Phosphatase 56, Total Protein 6.5, Albumin 2.5L, Globulin 4.0, Albumin/Globulin Ratio 0.6L, Thyroid Stimulating Hormone (TSH) 0.430, Random Vancomycin Level 27.7 Height (Feet): 5 Height (Inches): 0.00 Weight (Pounds): 130 General Appearance: lethargic EENT: normal ENT inspection Neck: supple Cardiovascular: normal rate Respiratory/Chest: decreased breath sounds Abdomen: normal bowel sounds, non tender, soft Extremities: non-tender Willem Rolle MD Jan 16, 2020 09:57
--- NOTE | 2020-01-16 10:53 | Diagnostic Imaging Report ---
EXAM: XR Abdomen, 2 Views CLINICAL HISTORY: NGT TECHNIQUE: Frontal view of the abdomen/pelvis with upright view of the abdomen. COMPARISON: No relevant prior studies available. FINDINGS/IMPRESSION: Enteric feeding tube terminates in the distal stomach/proximal duodenum. Small left pleural effusion. Emphysematous changes. No pneumothorax. Cardiomegaly. Calcified aorta. Diffuse osseous demineralization.
--- NOTE | 2020-01-16 11:00 | NUR ---
NURSE NOTES: Xray results reported to Dr. Rolle for NG placement, tube noted in distal stomach. Received orders to start on tube feeding Mildred AF to reach goal rate of 55ml/hr. Maintain IVF till goal is reached. Flushing 100ml every 6 hours, hold for residuals over 100. Orders noted and carried out. NG tube checked for patency, aspirated and noted minimal straw colored gastric output, HOB elevated at 45 degrees and tube feeding started at 10ml/hr.
[2020-01-16 12:00] VITALS: BP 135/67
--- NOTE | 2020-01-16 12:14 | Pulmonology Progress Note ---
Subjective ROS Limited/Unobtainable: No Interval Events: None new Constitutional: Denies: fever HEENT: Repors: no symptoms Respiratory: Reports: no symptoms Cardiovascular: Reports: no symptoms Gastrointestinal/Abdominal: Denies: nausea, vomiting, diarrhea Genitourinary: Reports: no symptoms Allergies: Coded Allergies: No Known Allergies (Unverified , 09/25/18) All Systems: reviewed and negative except above Objective Last 24 Hour Vital Signs Date Time Temp Pulse Resp B/P (MAP) Pulse Ox O2 Delivery O2 Flow Rate FiO2 01/16/20 12:00 99.3 60 19 135/67 (89) 94 01/16/20 10:27 62 18 134/60 98 01/16/20 09:57 62 18 134/60 98 01/16/20 09:00 Nasal Cannula 3.0 01/16/20 08:00 97.8 62 18 134/60 (84) 98 01/16/20 03:58 97.7 58 18 130/52 (78) 97 01/15/20 23:38 97.9 51 20 118/68 (85) 97 01/15/20 20:47 Nasal Cannula 3.0 01/15/20 20:00 98.4 56 20 111/75 (87) 94 01/15/20 16:15 98.4 01/15/20 16:00 98.2 53 19 108/62 (77) 98 Intake and Output 01/15/20 01/16/20 19:00 07:00 Intake Total 894.5 ml Output Total 300 ml 300 ml Balance 594.5 ml -300 ml IV Total 894.5 ml Output Urine Total 300 ml 300 ml General Appearance: no acute distress HEENT: normocephalic Respiratory: chest wall non-tender Cardiovascular: normal peripheral pulses Abdomen: normal bowel sounds Laboratory Tests 01/16/20 06:35: White Blood Count 8.4, Red Blood Count 3.66L, Hemoglobin 10.0L, Hematocrit 32.2L , Mean Corpuscular Volume 88, Mean Corpuscular Hemoglobin 27.4, Mean Corpuscular Hemoglobin Concent 31.2L, Red Cell Distribution Width 14.4, Platelet Count 189, Mean Platelet Volume 8.3, Neutrophils (%) (Auto) 68.8, Lymphocytes (%) (Auto) 23.1, Monocytes (%) (Auto) 5.7, Eosinophils (%) (Auto) 2.1, Basophils (%) (Auto) 0.3, Sodium Level 149H, Potassium Level 2.8L, Chloride Level 115H, Carbon Dioxide Level 26, Anion Gap 8, Blood Urea Nitrogen 8 , Creatinine 0.9, Estimat Glomerular Filtration Rate > 60, Glucose Level 130H, Calcium Level 8.4L, Phosphorus Level 2.8, Magnesium Level 1.9, Total Bilirubin 0.4, Aspartate Amino Transf (AST/SGOT) 19, Alanine Aminotransferase (ALT/SGPT) 18, Alkaline Phosphatase 56, Total Protein 6.5, Albumin 2.5L, Globulin 4.0, Albumin/Globulin Ratio 0.6L, Thyroid Stimulating Hormone (TSH) 0.430, Random Vancomycin Level 27.7 Current Medications Medications (Trade) Dose Ordered Sig/Mikey Route PRN Reason Start Time Stop Time Status Last Admin Dose Admin Acetaminophen (Tylenol) 650 mg Q4H PRN ORAL MILD/TEMP 01/13/20 02:30 02/12/20 02:29 Albuterol/ Ipratropium (Albuterol/ Ipratropium) 3 ml Q6H PRN HHN For Cough 01/13/20 03:00 01/18/20 02:59 Aspirin (ASA) 81 mg DAILY ORAL 01/13/20 09:00 02/27/20 08:59 01/13/20 08:43 Barium Sulfate (Varibar Honey) 250 ml NOW PRN MC RAD 01/13/20 16:00 01/16/20 15:58 Barium Sulfate (Varibar [place]) 240 ml NOW PRN MC RAD 01/13/20 16:00 01/16/20 15:58 Barium Sulfate (Varibar Pudding) 230 ml NOW PRN MC RAD 01/13/20 16:00 01/16/20 15:58 Barium Sulfate (Varibar Thin Liquid powder) 148 gm NOW PRN MC RAD 01/13/20 16:00 01/16/20 15:58 Carbidopa/Levodopa (Sinemet 25/100) 1 tab BID ORAL 01/13/20 09:00 02/12/20 08:59 01/13/20 08:43 Dextrose/Sodium Chloride 1,000 ml @ 75 mls/hr [id number] IV 01/16/20 09:45 02/15/20 09:44 01/16/20 09:45 Divalproex Sodium (Depakote Sprinkles) 500 mg BEDTIME NG 01/13/20 21:00 02/12/20 20:59 Docusate Sodium (Colace) 100 mg TWICE A DAY ORAL 01/13/20 09:00 02/12/20 08:59 01/13/20 08:44 Donepezil HCl (Aricept) 10 mg DAILY ORAL 01/13/20 09:00 02/12/20 08:59 01/13/20 08:43 Enoxaparin Sodium (Lovenox) 40 mg DAILY SUBQ 01/15/20 09:00 04/14/20 08:59 01/16/20 08:41 Gabapentin (Neurontin) 100 mg THREE TIMES A DAY ORAL 01/13/20 09:00 02/12/20 08:59 01/13/20 08:43 Levetiracetam 100 ml @ 400 mls/hr Q12HR IVPB 01/14/20 23:45 04/13/20 23:44 01/16/20 08:39 Lorazepam (Ativan 2mg/ml 1ml) 0.25 mg Q4H PRN IV For Anxiety 01/16/20 09:45 01/23/20 09:44 01/16/20 09:57 Lorazepam (Ativan) 0.5 mg Q4H PRN ORAL For Anxiety 01/13/20 02:30 01/20/20 02:29 01/13/20 08:44 Magnesium Hydroxide (Mom) 30 ml DAILY PRN ORAL Constipation 01/13/20 02:30 02/12/20 02:29 Mirtazapine (Remeron) 45 mg BEDTIME ORAL 01/13/20 21:00 04/12/20 20:59 Morphine Sulfate (Morphine Sulfate) 2 mg Q4H PRN IVP Severe Pain (Pain Scale 7-10) 01/15/20 17:30 01/22/20 13:29 01/16/20 11:52 Piperacillin Sod/ Tazobactam Sod 3.375 gm/Sodium Chloride 110 ml @ 27.5 mls/hr EVERY 8 HOURS IVPB 01/13/20 06:00 01/18/20 05:59 01/16/20 05:02 Potassium Chloride 100 ml @ 100 mls/hr Q1H IVPB 01/16/20 10:00 01/16/20 17:59 01/16/20 11:14 Sennosides (Senokot) 8.6 mg BEDTIME ORAL 01/13/20 21:00 02/12/20 20:59 Tramadol HCl (Ultram) 50 mg Q6H PRN ORAL Moderate Pain (Pain Scale 4-6) 01/13/20 02:30 01/20/20 02:29 01/13/20 08:50 Vancomycin HCl (Vanco pharmacy to dose) 1 ea DAILY PRN MISC Per rx protocol 01/13/20 02:15 02/12/20 02:14 Vancomycin HCl 1 gm/Dextrose 275 ml @ 183.708 mls/hr Q24H IVPB 01/13/20 04:00 01/18/20 03:59 01/16/20 03:10 Assessment/Plan Assessment/Plan IMPRESSION: 1. Possible aspiration pneumonia. Followup CXR shows small left pleural effusion 2. UTI. 3. Dementia. 4. Parkinson's. DISCUSSION: Continue abx for UTI and possible aspiration pneumonia Continue oxygen as needed and pulmonary hygiene. I will follow as representative personal service. Saturating well on low flow O2 Pete Bell M.D. Pete Bell MD Jan 16, 2020 12:14
--- NOTE | 2020-01-16 13:37 | Infectious Diseases Prog Note ---
Assessment/Plan Assessment/Plan ASSESSMENT AND PLAN: 1. Pseudomonas uti, aspiration pna/hcap, vre colonization - zosyn - day # 4 abx - discontinue vancomycin - monitor labs and chest x-ray 2. Diabetes mellitus. 3. Hypertension. 4. Blood sugar and blood pressure treatment per primary care team for diabetes and hypertension. 5. Parkinson's. 6. Dementia. 7. Dysphagia. 8. Aspiration risk. 9. Weakness. 10. Continue treatment per primary consultants. 11. No known drug allergies. 12. Social history is negative. 13. Family history is noncontributory. 14. MAR was noted. 15. Case was discussed with RN. 16. Continue treatment per primary consultants. 17. Orders were noted and entered. 18. Skin care protocol. Subjective Constitutional: Reports: fatigue, other - mental statue without change ; Denies : fever HEENT: Denies: congestion Respiratory: Denies: shortness of breath Cardiovascular: Denies: chest pain Gastrointestinal/Abdominal: Denies: nausea, vomiting, diarrhea Genitourinary: Reports: other - + tim Neurologic: Denies: headache Psychiatric: Reports: other - NA Skin: Denies: rash Hematologic: Denies: bleeding Musculoskeletal: Denies: pain Allergies: Coded Allergies: No Known Allergies (Unverified , 09/25/18) Objective Last 24 Hour Vital Signs Date Time Temp Pulse Resp B/P (MAP) Pulse Ox O2 Delivery O2 Flow Rate FiO2 01/16/20 12:00 99.3 60 19 135/67 (89) 94 01/16/20 10:27 62 18 134/60 98 01/16/20 09:57 62 18 134/60 98 01/16/20 09:00 Nasal Cannula 3.0 01/16/20 08:00 97.8 62 18 134/60 (84) 98 01/16/20 03:58 97.7 58 18 130/52 (78) 97 01/15/20 23:38 97.9 51 20 118/68 (85) 97 01/15/20 20:47 Nasal Cannula 3.0 01/15/20 20:00 98.4 56 20 111/75 (87) 94 01/15/20 16:15 98.4 01/15/20 16:00 98.2 53 19 108/62 (77) 98 Height (Feet): 5 Height (Inches): 0.00 Weight (Pounds): 130 General Appearance: no acute distress HEENT: normocephalic, atraumatic, anicteric, mucous membranes moist Respiratory/Chest: no respiratory distress, no accessory muscle use, crackles/ rales, rhonchi - bilaterally Cardiovascular: normal rate, regular rhythm, no gallop/murmur, no JVD Abdomen: normal bowel sounds, soft, non tender, no organomegaly, non distended Genitourinary: other - + tim - urine cloudy but clearer Extremities: no cyanosis Skin: no rash Neurologic/Psychiatric: hospital coordinator II-XII grossly normal, alert, responsive Lymphatic: no neck adenopathy Musculoskeletal: no effusion Chest x-ray - 01/16/20 - FINDINGS/IMPRESSION: Patchy airspace opacity within the right midlung field. Small bilateral pleural effusions, left greater than right. Overall, the degree of pleural effusion on the left has improved. No pneumothorax. Cardiomegaly. Calcified aorta. Microbiology Date/Time Source Procedure Growth Status 01/12/20 22:30 Blood Blood Culture - Preliminary NO GROWTH AFTER 72 HOURS Resulted 01/13/20 00:13 Nasal Nares MRSA Culture - Final NO METHICILLIN RESISTANT STAPH AUREUS... Complete 01/12/20 22:30 Urine,Clean Catch Urine Culture - Final Pseudomonas Aeruginosa Complete 01/13/20 00:13 Rectum - Final NO CARBAPENEM-RESISTANT ENTEROBACTERI... Complete Laboratory Tests Test 01/16/20 06:35 White Blood Count 8.4 K/UL (4.8-10.8) Red Blood Count 3.66 M/UL (4.20-5.40) L Hemoglobin 10.0 G/DL (12.0-16.0) L Hematocrit 32.2 % (37.0-47.0) L Mean Corpuscular Volume 88 FL (80-99) Mean Corpuscular Hemoglobin 27.4 PG (27.0-31.0) Mean Corpuscular Hemoglobin Concent 31.2 G/DL (32.0-36.0) L Red Cell Distribution Width 14.4 % (11.6-14.8) Platelet Count 189 K/UL (150-450) Mean Platelet Volume 8.3 FL (6.5-10.1) Neutrophils (%) (Auto) 68.8 % (45.0-75.0) Lymphocytes (%) (Auto) 23.1 % (20.0-45.0) Monocytes (%) (Auto) 5.7 % (1.0-10.0) Eosinophils (%) (Auto) 2.1 % (0.0-3.0) Basophils (%) (Auto) 0.3 % (0.0-2.0) Sodium Level 149 MMOL/L (136-145) H Potassium Level 2.8 MMOL/L (3.5-5.1) L Chloride Level 115 MMOL/L (98-107) H Carbon Dioxide Level 26 MMOL/L (21-32) Anion Gap 8 mmol/L (5-15) Blood Urea Nitrogen 8 mg/dL (7-18) Creatinine 0.9 MG/DL (0.55-1.30) Estimat Glomerular Filtration Rate > 60 mL/min (>60) Glucose Level 130 MG/DL (74-106) H Calcium Level 8.4 MG/DL (8.5-10.1) L Phosphorus Level 2.8 MG/DL (2.5-4.9) Magnesium Level 1.9 MG/DL (1.8-2.4) Total Bilirubin 0.4 MG/DL (0.2-1.0) Aspartate Amino Transf (AST/SGOT) 19 U/L (15-37) Alanine Aminotransferase (ALT/SGPT) 18 U/L (12-78) Alkaline Phosphatase 56 U/L (46-116) Total Protein 6.5 G/DL (6.4-8.2) Albumin 2.5 G/DL (3.4-5.0) L Globulin 4.0 g/dL Albumin/Globulin Ratio 0.6 (1.0-2.7) L Thyroid Stimulating Hormone (TSH) 0.430 uiU/mL (0.358-3.740) Random Vancomycin Level 27.7 ug/mL Current Medications Medications (Trade) Dose Ordered Sig/Mikey Route PRN Reason Start Time Stop Time Status Last Admin Dose Admin Acetaminophen (Tylenol) 650 mg Q4H PRN ORAL MILD/TEMP 01/13/20 02:30 02/12/20 02:29 Albuterol/ Ipratropium (Albuterol/ Ipratropium) 3 ml Q6H PRN HHN For Cough 01/13/20 03:00 01/18/20 02:59 Aspirin (ASA) 81 mg DAILY ORAL 01/13/20 09:00 02/27/20 08:59 01/13/20 08:43 Barium Sulfate (Varibar [place]) 250 ml NOW PRN MC RAD 01/13/20 16:00 01/16/20 15:58 Barium Sulfate (Varibar [place]) 240 ml NOW PRN MC RAD 01/13/20 16:00 01/16/20 15:58 Barium Sulfate (Varibar Pudding) 230 ml NOW PRN MC RAD 01/13/20 16:00 01/16/20 15:58 Barium Sulfate (Varibar Thin Liquid powder) 148 gm NOW PRN MC RAD 01/13/20 16:00 01/16/20 15:58 Carbidopa/Levodopa (Sinemet 25/100) 1 tab BID ORAL 01/13/20 09:00 02/12/20 08:59 01/13/20 08:43 Dextrose/Sodium Chloride 1,000 ml @ 75 mls/hr [id number] IV 01/16/20 09:45 02/15/20 09:44 01/16/20 09:45 Divalproex Sodium (Depakote Sprinkles) 500 mg BEDTIME NG 01/13/20 21:00 02/12/20 20:59 Docusate Sodium (Colace) 100 mg TWICE A DAY ORAL 01/13/20 09:00 02/12/20 08:59 01/13/20 08:44 Donepezil HCl (Aricept) 10 mg DAILY ORAL 01/13/20 09:00 02/12/20 08:59 01/13/20 08:43 Enoxaparin Sodium (Lovenox) 40 mg DAILY SUBQ 01/15/20 09:00 04/14/20 08:59 01/16/20 08:41 Gabapentin (Neurontin) 100 mg THREE TIMES A DAY ORAL 01/13/20 09:00 02/12/20 08:59 01/16/20 12:14 Levetiracetam 100 ml @ 400 mls/hr Q12HR IVPB 01/14/20 23:45 04/13/20 23:44 01/16/20 08:39 Lorazepam (Ativan 2mg/ml 1ml) 0.25 mg Q4H PRN IV For Anxiety 01/16/20 09:45 01/23/20 09:44 01/16/20 09:57 Lorazepam (Ativan) 0.5 mg Q4H PRN ORAL For Anxiety 01/13/20 02:30 01/20/20 02:29 01/13/20 08:44 Magnesium Hydroxide (Mom) 30 ml DAILY PRN ORAL Constipation 01/13/20 02:30 02/12/20 02:29 Mirtazapine (Remeron) 45 mg BEDTIME ORAL 01/13/20 21:00 04/12/20 20:59 Morphine Sulfate (Morphine Sulfate) 2 mg Q4H PRN IVP Severe Pain (Pain Scale 7-10) 01/15/20 17:30 01/22/20 13:29 01/16/20 11:52 Piperacillin Sod/ Tazobactam Sod 3.375 gm/Sodium Chloride 110 ml @ 27.5 mls/hr EVERY 8 HOURS IVPB 01/13/20 06:00 01/18/20 05:59 01/16/20 05:02 Potassium Chloride 100 ml @ 100 mls/hr Q1H IVPB 01/16/20 10:00 01/16/20 17:59 01/16/20 12:14 Sennosides (Senokot) 8.6 mg BEDTIME ORAL 01/13/20 21:00 02/12/20 20:59 Tramadol HCl (Ultram) 50 mg Q6H PRN ORAL Moderate Pain (Pain Scale 4-6) 01/13/20 02:30 01/20/20 02:29 01/13/20 08:50 Vancomycin HCl (Vanco pharmacy to dose) 1 ea DAILY PRN MISC Per rx protocol 01/13/20 02:15 02/12/20 02:14 Vancomycin HCl 1 gm/Dextrose 275 ml @ 183.708 mls/hr Q24H IVPB 01/13/20 04:00 01/18/20 03:59 01/16/20 03:10 Rola Junior MD Jan 16, 2020 13:37
[2020-01-16] MEDS ORDERED: Varibar Pudding 230ml MC PRN (15:58)
[2020-01-16] MEDS ORDERED: Varibar Honey 250ml MC PRN (15:58)
[2020-01-16] MEDS ORDERED: Varibar Thin Liquid powder 148gm MC PRN (15:58)
[2020-01-16] MEDS ORDERED: Varibar Nectar 240ml MC PRN (15:58)
[2020-01-16 16:00] VITALS: BP 130/69
[2020-01-16] MEDS: LORazepam 0.5mg tab ORAL PRN (16:54)
--- NOTE | 2020-01-16 19:03 | NUR ---
NURSE HAND-OFF: Important Events on Shift: S/P NGT insertion left nares 78cm , started on Mildred AF to reach goal of 55ml, now at 40ml/hr with no residuals, given KCL 10meqs x 8 bags for K=2.8, IVF switched to D5 1/2 NS for Na level 149 Patient Status: Stable Diet: Mildred AF Pending Orders: Varibar honey/speech eval, labs ordered for 01/16 and 01/17 Pending Results/Labs: None Pending MD notification: None Latest Vital Signs: Temperature 99.0 , Pulse 63 , B/P 130 /69 , Respiratory Rate 19 , O2 SAT 93 , Nasal Cannula, O2 Flow Rate 3.0 . Vital Sign Comment: Stable Latest Houser Fall Score: 70 Fall Risk: High Risk Safety Measures: Call light Within Reach, Bed Alarm Zone 2, Side Rails Side Rails x2, Bed position Low and Locked. Fall Precautions: Yellow Socks Yellow Gown Door Sign Patient Fall Education Report given to Carol CASTAÑEDA.
--- NOTE | 2020-01-16 19:31 | NUR ---
NURSE NOTES: Received report from MADDY Costa. Pt sleeping in bed, AAO x 0, non verbal, on room air. Tolerating tube feeding 40cc/hr and HOB elevated. Will increase the rate to reach the goal 55cc. Simmons intact and secured to the leg. IV sites intact and running IVF. Fall, aspiration, and seizure precaution maintained. Suction setup at bedside. Bed locked, lowest position, alarm on, side rails up, call light within reach. Will continue to monitor.
[2020-01-16 20:00] VITALS: BP 117/52
[2020-01-16] MEDS: Depakote 125mg Sprinkles NG SCH ×2 (20:28→21:00)
[2020-01-16] MEDS: Sennosides 8.6mg tab ORAL SCH ×2 (20:28→21:00)
--- NOTE | 2020-01-16 22:37 | NUR ---
NURSE NOTES: NGT resistance noted when flushing water and giving meds. Unable to administer crushed meds via NGT. All crushed meds wasted. Left message Dr. Rolle.
--- NOTE | 2020-01-16 23:15 | Internal Med Progress Note ---
Subjective Date of Service: Jan 16, 2020 Physician Name Raymundo Harley Attending Physician Raymundo Harely MD Current Medications Medications (Trade) Dose Ordered Sig/Mikey Route PRN Reason Start Time Stop Time Status Last Admin Dose Admin Acetaminophen (Tylenol) 650 mg Q4H PRN ORAL MILD/TEMP 01/13/20 02:30 02/12/20 02:29 01/16/20 16:55 Albuterol/ Ipratropium (Albuterol/ Ipratropium) 3 ml Q6H PRN HHN For Cough 01/13/20 03:00 01/18/20 02:59 Aspirin (ASA) 81 mg DAILY ORAL 01/13/20 09:00 02/27/20 08:59 01/13/20 08:43 Barium Sulfate (Varibar Honey) 250 ml NOW PRN MC RAD 01/16/20 15:58 01/19/20 15:57 Barium Sulfate (Varibar [place]) 240 ml NOW PRN MC RAD 01/16/20 15:58 01/19/20 15:57 Barium Sulfate (Varibar Pudding) 230 ml NOW PRN MC RAD 01/16/20 15:58 01/19/20 15:57 Barium Sulfate (Varibar Thin Liquid powder) 148 gm NOW PRN MC RAD 01/16/20 15:58 01/19/20 15:57 Carbidopa/Levodopa (Sinemet 25/100) 1 tab BID ORAL 01/13/20 09:00 02/12/20 08:59 01/16/20 17:01 Dextrose/Sodium Chloride 1,000 ml @ 75 mls/hr [id number] IV 01/16/20 09:45 02/15/20 09:44 01/16/20 09:45 Divalproex Sodium (Depakote Sprinkles) 500 mg BEDTIME NG 01/13/20 21:00 02/12/20 20:59 Docusate Sodium (Colace) 100 mg TWICE A DAY ORAL 01/13/20 09:00 02/12/20 08:59 01/16/20 17:01 Donepezil HCl (Aricept) 10 mg DAILY ORAL 01/13/20 09:00 02/12/20 08:59 01/13/20 08:43 Enoxaparin Sodium (Lovenox) 40 mg DAILY SUBQ 01/15/20 09:00 04/14/20 08:59 01/16/20 08:41 Gabapentin (Neurontin) 100 mg THREE TIMES A DAY ORAL 01/13/20 09:00 02/12/20 08:59 01/16/20 17:01 Levetiracetam 100 ml @ 400 mls/hr Q12HR IVPB 01/14/20 23:45 04/13/20 23:44 01/16/20 20:27 Lorazepam (Ativan 2mg/ml 1ml) 0.25 mg Q4H PRN IV For Anxiety 01/16/20 09:45 01/23/20 09:44 01/16/20 09:57 Lorazepam (Ativan) 0.5 mg Q4H PRN ORAL For Anxiety 01/13/20 02:30 01/20/20 02:29 01/16/20 16:54 Magnesium Hydroxide (Mom) 30 ml DAILY PRN ORAL Constipation 01/13/20 02:30 02/12/20 02:29 Mirtazapine (Remeron) 45 mg BEDTIME ORAL 01/13/20 21:00 04/12/20 20:59 Morphine Sulfate (Morphine Sulfate) 2 mg Q4H PRN IVP Severe Pain (Pain Scale 7-10) 01/15/20 17:30 01/22/20 13:29 01/16/20 11:52 Piperacillin Sod/ Tazobactam Sod 3.375 gm/Sodium Chloride 110 ml @ 27.5 mls/hr EVERY 8 HOURS IVPB 01/16/20 14:00 01/21/20 13:59 01/16/20 21:40 Sennosides (Senokot) 8.6 mg BEDTIME ORAL 01/13/20 21:00 02/12/20 20:59 Tramadol HCl (Ultram) 50 mg Q6H PRN ORAL Moderate Pain (Pain Scale 4-6) 01/13/20 02:30 01/20/20 02:29 01/13/20 08:50 Allergies: Coded Allergies: No Known Allergies (Unverified , 09/25/18) ROS Limited/Unobtainable: Yes Constitutional: Reports: no symptoms All Systems: reviewed and negative except above Subjective able to speak today short answers NPO by DRY CHAIN PULLER NGT placed feeding in progress d/w amy alonzo at bedside Objective Last Vital Signs Date Time Temp Pulse Resp B/P (MAP) Pulse Ox O2 Delivery O2 Flow Rate FiO2 01/16/20 21:00 Nasal Cannula 3.0 01/16/20 20:03 54 18 96 21 01/16/20 20:00 97.7 117/52 (73) General Appearance: no apparent distress EENT: other - eyes closed Neck: supple Cardiovascular: normal rate, regular rhythm Respiratory/Chest: lungs clear Abdomen: non tender, soft, no mass Genitourinary/Rectal: other - +tim Extremities: other - contrcature flexion Right knee +foot drop L foor Neurologic: responsive, other - follows commands, answers to question Skin: warm/dry Laboratory Tests Test 01/16/20 06:35 White Blood Count 8.4 K/UL (4.8-10.8) Red Blood Count 3.66 M/UL (4.20-5.40) L Hemoglobin 10.0 G/DL (12.0-16.0) L Hematocrit 32.2 % (37.0-47.0) L Mean Corpuscular Volume 88 FL (80-99) Mean Corpuscular Hemoglobin 27.4 PG (27.0-31.0) Mean Corpuscular Hemoglobin Concent 31.2 G/DL (32.0-36.0) L Red Cell Distribution Width 14.4 % (11.6-14.8) Platelet Count 189 K/UL (150-450) Mean Platelet Volume 8.3 FL (6.5-10.1) Neutrophils (%) (Auto) 68.8 % (45.0-75.0) Lymphocytes (%) (Auto) 23.1 % (20.0-45.0) Monocytes (%) (Auto) 5.7 % (1.0-10.0) Eosinophils (%) (Auto) 2.1 % (0.0-3.0) Basophils (%) (Auto) 0.3 % (0.0-2.0) Sodium Level 149 MMOL/L (136-145) H Potassium Level 2.8 MMOL/L (3.5-5.1) L Chloride Level 115 MMOL/L (98-107) H Carbon Dioxide Level 26 MMOL/L (21-32) Anion Gap 8 mmol/L (5-15) Blood Urea Nitrogen 8 mg/dL (7-18) Creatinine 0.9 MG/DL (0.55-1.30) Estimat Glomerular Filtration Rate > 60 mL/min (>60) Glucose Level 130 MG/DL (74-106) H Calcium Level 8.4 MG/DL (8.5-10.1) L Phosphorus Level 2.8 MG/DL (2.5-4.9) Magnesium Level 1.9 MG/DL (1.8-2.4) Total Bilirubin 0.4 MG/DL (0.2-1.0) Aspartate Amino Transf (AST/SGOT) 19 U/L (15-37) Alanine Aminotransferase (ALT/SGPT) 18 U/L (12-78) Alkaline Phosphatase 56 U/L (46-116) Total Protein 6.5 G/DL (6.4-8.2) Albumin 2.5 G/DL (3.4-5.0) L Globulin 4.0 g/dL Albumin/Globulin Ratio 0.6 (1.0-2.7) L Thyroid Stimulating Hormone (TSH) 0.430 uiU/mL (0.358-3.740) Random Vancomycin Level 27.7 ug/mL Intake and Output 01/15/20 01/16/20 19:00 07:00 Intake Total 894.5 ml Output Total 300 ml 300 ml Balance 594.5 ml -300 ml IV Total 894.5 ml Output Urine Total 300 ml 300 ml Assessment/Plan Status: stable, progressing, tolerating diet Assessment/Plan Impression: acute hypoxic resp failure fever hypotension possible early shock acute toxic encephalopathy UTI parkinson's disease dementia with behavior disturbance sinus bradycardia bedbound status senile debility anxiety VRE colonization hypernatremia hypokalemia PLAN: Kcl 80 meq IV over 8 hrs IVF changed to 05/11 NS NGT placed by GI TF ko to IV ammonia 41 ABG noted PCo2 normal DC atenolol due to bradycardia IV abx f/u cx pulm/ID eval pain control aspiration precaution oxygen morphine prn pain IV FULL CODE. d/w amy alozno over 35 min spent today. over 50% with counseling , coordinate of care , advance care planning d/w amy. RAYMUNDO HARLEY MD INTERNAL MEDICINE [phone] Raymundo Harley MD Jan 16, 2020 23:15
[2020-01-17] VITALS: BP 123/56
[2020-01-17] MEDS: D5 1/2NS 1,000 ML IV SCH ×2 (00:34→12:22)
[2020-01-17 04:00] VITALS: BP 116/55
[2020-01-17] MEDS: Piperacillin/Tazobactam 3.375 GM in NS 110 ML IVPB SCH ×3 (05:06→22:14)
--- NOTE | 2020-01-17 07:30 | NUR ---
NURSE NOTES: RECEIVED PATIENT A/A/OX1, RESPONSE TO TACTILE STIMULI. NGT INPLACED. GASTRIC RESIDUAL NOTED 120ML. STOPPED TUBE FEEDING. NOTIFIED DR PANDYA. PIV PATENT AND INTACT. IVF INFUSING WELL. O2 2L VIA NC. KEPT HOB ELEVATED FOR ASPIRATION PRECAUTION. F/C INPLACED AND DRAINS WITH YELLOW COLORED URINE. NO ACUTE CARDIO- RESP DISTRESS NOTED. BED IS IN THE LOWEST POSITION. SIDERAILS ARE UPX3. CALL LIGHT IS WITHIN REACH. WILL CONT TO MONITOR.
--- NOTE | 2020-01-17 07:34 | NUR ---
NURSE NOTES: CHECKED PLACEMENT AND RESIDUAL NOTED 120ML THROUGH NGT. NOTIFIED GI, DR PANDYA. TURNED OFF FEEDING. KEPT HOB ELEVATED. WILL CONT TO MONITOR. Addendum: 01/17/20 at [address] PANDYA CALLED BACK AND WILL PLACED NEW ORDER IN. WILL CONT TO MONITOR.
--- NOTE | 2020-01-17 07:38 | NUR ---
NURSE HAND-OFF: Important Events on Shift:Residual 120cc, unable to administer crushed meds via NGT Patient Status: stable Diet: Vital AF 1.2 Pending Orders: Chest Xray 01/17, ST eval Pending Results/Labs:AM labs Pending MD notification:N Latest Vital Signs: Temperature 96.9 , Pulse 54 , B/P 116 /55 , Respiratory Rate 18 , O2 SAT 97 , Nasal Cannula, O2 Flow Rate 3.0 . Vital Sign Comment: N Latest Houser Fall Score: 70 Fall Risk: High Risk Safety Measures: Call light Within Reach, Bed Alarm Zone 2, Side Rails Side Rails x2, Bed position Low and Locked. Fall Precautions: Yellow Socks Yellow Gown Door Sign Patient Fall Education Report given to [[place]].
[2020-01-17 07:55] LABS: ANION GAP 8 mmol/L (5-15); BLOOD UREA NITROGEN 8 mg/dL (7-18); CALCIUM 8.1 MG/DL (8.5-10.1); CARBON DIOXIDE 26 MMOL/L (21-32); CHLORIDE 110 MMOL/L (98-107); CREATININE 0.8 MG/DL (0.55-1.30); POTASSIUM 3.3 MMOL/L (3.5-5.1); SODIUM 143 MMOL/L (136-145)
[2020-01-17 08:00] VITALS: BP 120/68
[2020-01-17] MEDS: Aspirin Baby 81mg ORAL SCH (09:04)
[2020-01-17] MEDS: Levodopa/Carbidopa 25/100 tab ORAL SCH ×2 (09:04→17:20)
[2020-01-17] MEDS: Docusate 100mg cap ORAL SCH ×2 (09:04→17:20)
[2020-01-17] MEDS: Donepezil 10mg tab ORAL SCH (09:04)
[2020-01-17] MEDS: Enoxaparin 40mg Inj SUBQ SCH (09:04)
--- NOTE | 2020-01-17 10:05 | General Progress Note ---
Assessment/Plan Problem List: (1) Diabetes mellitus ICD Codes: E11.9 - Type 2 diabetes mellitus without complications SNOMED: 95763109 (2) HTN (hypertension) ICD Codes: I10 - Essential (primary) hypertension SNOMED: 27482692 (3) Parkinson disease ICD Codes: G20 - Parkinson's disease SNOMED: 42236689 (4) Intractable nausea and vomiting ICD Codes: R11.2 - Nausea with vomiting, unspecified SNOMED: 872257549 (5) Urinary tract infection ICD Codes: N39.0 - Urinary tract infection, site not specified SNOMED: 45122297 Status: stable, progressing, tolerating diet Assessment/Plan: dysphagia s/p NGT placement add reglan swallow eval may need PEG Subjective ROS Limited/Unobtainable: No Allergies: Coded Allergies: No Known Allergies (Unverified , 09/25/18) Objective Last 24 Hour Vital Signs Date Time Temp Pulse Resp B/P (MAP) Pulse Ox O2 Delivery O2 Flow Rate FiO2 01/17/20 08:00 97.3 62 18 120/68 (85) 97 01/17/20 04:00 96.9 54 18 116/55 (75) 97 01/17/20 00:00 96.4 49 18 123/56 (78) 100 01/16/20 21:00 Nasal Cannula 3.0 01/16/20 20:03 54 18 96 Room Air 21 01/16/20 20:00 97.7 57 20 117/52 (73) 95 01/16/20 17:24 63 19 130/69 93 01/16/20 16:54 63 19 130/69 93 01/16/20 16:00 99.0 63 19 130/69 (89) 93 01/16/20 12:00 99.3 60 19 135/67 (89) 94 01/16/20 10:27 62 18 134/60 98 Intake and Output 01/16/20 01/17/20 19:00 07:00 Intake Total 1115.0 ml 545 ml Output Total 900 ml 600 ml Balance 215.0 ml -55 ml IV Total 885.0 ml Tube Feeding 230 ml 545 ml Output Urine Total 900 ml 600 ml # Bowel Movements 1 Laboratory Tests 01/17/20 06:19: Sodium Level 143, Potassium Level 3.3L, Chloride Level 110H, Carbon Dioxide Level 26, Anion Gap 8, Blood Urea Nitrogen 8, Creatinine 0.8, Estimat Glomerular Filtration Rate > 60, Glucose Level 138H, Calcium Level 8.1L Height (Feet): 5 Height (Inches): 0.00 Weight (Pounds): 130 General Appearance: no apparent distress EENT: normal ENT inspection Neck: supple Cardiovascular: normal rate Respiratory/Chest: decreased breath sounds Abdomen: normal bowel sounds, non tender, soft Extremities: non-tender Willem Rolle MD Jan 17, 2020 10:05
--- NOTE | 2020-01-17 10:15 | NUR ---
RD ASSESSMENT & RECOMMENDATIONS SEE CARE ACTIVITY FOR COMPLETE ASSESSMENT DAILY ESTIMATED NEEDS: Needs based on pulmonary , cardiac 52.7kg 25-30 kcals/kg 2477-5256 total kcals 1-1.5 g protein/kg 53-79 g total protein 25-30 mL/kg 1184-1340 total fluid mLs NUTRITION DIAGNOSIS: * Swallowing difficulty R/T dysphagia as evidenced by admitted w/ possible aspiration, now on NGT feeds. CURRENT TF:Vital 1.2 @55ml/hr ENTERAL NUTRITION RECOMMENDATIONS: TF CHANGE TO -> GLUCERNA 1.2 GOAL OF 55ML/HR X24 HRS to provide 1320ml, 1584 kcal, 79g pro, 1063ml free H2O - No indications for elemental formula, rec Glucerna 1.2 goal of 55mlhr x24 hrs to meet est needs - Flush per MD. HOB over 30 degrees ADDITIONAL RECOMMENDATIONS: * Calibrated bedscale wt for accurate CBW -> per SNF record: HT=60" [id number] * TF recs as above * Lytes daily w. TF .
[2020-01-17] MEDS: levETIRAcetam 500mg/NS100ml 100 ML IVPB SCH ×2 (10:16→20:19)
--- NOTE | 2020-01-17 10:26 | Pulmonology Progress Note ---
Subjective ROS Limited/Unobtainable: No Interval Events: None new Constitutional: Reports: fatigue, other - mental statue without change ; Denies : fever HEENT: Repors: no symptoms Respiratory: Reports: no symptoms Cardiovascular: Reports: no symptoms Gastrointestinal/Abdominal: Denies: nausea, vomiting, diarrhea Genitourinary: Reports: no symptoms Psychiatric: Reports: other - NA Skin: Denies: rash Musculoskeletal: Denies: pain Allergies: Coded Allergies: No Known Allergies (Unverified , 09/25/18) All Systems: reviewed and negative except above Objective Last 24 Hour Vital Signs Date Time Temp Pulse Resp B/P (MAP) Pulse Ox O2 Delivery O2 Flow Rate FiO2 01/17/20 08:00 97.3 62 18 120/68 (85) 97 01/17/20 04:00 96.9 54 18 116/55 (75) 97 01/17/20 00:00 96.4 49 18 123/56 (78) 100 01/16/20 21:00 Nasal Cannula 3.0 01/16/20 20:03 54 18 96 Room Air 21 01/16/20 20:00 97.7 57 20 117/52 (73) 95 01/16/20 17:24 63 19 130/69 93 01/16/20 16:54 63 19 130/69 93 01/16/20 16:00 99.0 63 19 130/69 (89) 93 01/16/20 12:00 99.3 60 19 135/67 (89) 94 01/16/20 10:27 62 18 134/60 98 Intake and Output 01/16/20 01/17/20 19:00 07:00 Intake Total 1115.0 ml 545 ml Output Total 900 ml 600 ml Balance 215.0 ml -55 ml IV Total 885.0 ml Tube Feeding 230 ml 545 ml Output Urine Total 900 ml 600 ml # Bowel Movements 1 General Appearance: no acute distress HEENT: normocephalic Respiratory: chest wall non-tender Cardiovascular: normal peripheral pulses Abdomen: normal bowel sounds Laboratory Tests 01/17/20 06:19: Sodium Level 143, Potassium Level 3.3L, Chloride Level 110H, Carbon Dioxide Level 26, Anion Gap 8, Blood Urea Nitrogen 8, Creatinine 0.8, Estimat Glomerular Filtration Rate > 60, Glucose Level 138H, Calcium Level 8.1L Current Medications Medications (Trade) Dose Ordered Sig/Mikey Route PRN Reason Start Time Stop Time Status Last Admin Dose Admin Acetaminophen (Tylenol) 650 mg Q4H PRN ORAL MILD/TEMP 01/13/20 02:30 02/12/20 02:29 01/16/20 16:55 Albuterol/ Ipratropium (Albuterol/ Ipratropium) 3 ml Q6H PRN HHN For Cough 01/13/20 03:00 01/18/20 02:59 Aspirin (ASA) 81 mg DAILY ORAL 01/13/20 09:00 02/27/20 08:59 01/17/20 09:04 Barium Sulfate (Varibar Honey) 250 ml NOW PRN RAD 01/16/20 15:58 01/19/20 15:57 Barium Sulfate (Varibar Oklee) 240 ml NOW PRN MC RAD 01/16/20 15:58 01/19/20 15:57 Barium Sulfate (Varibar Pudding) 230 ml NOW PRN RAD 01/16/20 15:58 01/19/20 15:57 Barium Sulfate (Varibar Thin Liquid powder) 148 gm NOW PRN MC RAD 01/16/20 15:58 01/19/20 15:57 Carbidopa/Levodopa (Sinemet 25/100) 1 tab BID ORAL 01/13/20 09:00 02/12/20 08:59 01/17/20 09:04 Dextrose/Sodium Chloride 1,000 ml @ 75 mls/hr [id number] IV 01/16/20 09:45 02/15/20 09:44 01/17/20 00:34 Divalproex Sodium (Depakote Sprinkles) 500 mg BEDTIME NG 01/13/20 21:00 02/12/20 20:59 Docusate Sodium (Colace) 100 mg TWICE A DAY ORAL 01/13/20 09:00 02/12/20 08:59 01/17/20 09:04 Donepezil HCl (Aricept) 10 mg DAILY ORAL 01/13/20 09:00 02/12/20 08:59 01/17/20 09:04 Enoxaparin Sodium (Lovenox) 40 mg DAILY SUBQ 01/15/20 09:00 04/14/20 08:59 01/17/20 09:04 Gabapentin (Neurontin) 100 mg THREE TIMES A DAY ORAL 01/13/20 09:00 02/12/20 08:59 01/17/20 09:04 Levetiracetam 100 ml @ 400 mls/hr Q12HR IVPB 01/14/20 23:45 04/13/20 23:44 01/17/20 10:16 Lorazepam (Ativan 2mg/ml 1ml) 0.25 mg Q4H PRN IV For Anxiety 01/16/20 09:45 01/23/20 09:44 01/16/20 09:57 Lorazepam (Ativan) 0.5 mg Q4H PRN ORAL For Anxiety 01/13/20 02:30 01/20/20 02:29 01/16/20 16:54 Magnesium Hydroxide (Mom) 30 ml DAILY PRN ORAL Constipation 01/13/20 02:30 02/12/20 02:29 Metoclopramide HCl (Reglan) 5 mg Q6HR IVP 01/17/20 10:30 02/16/20 10:29 Mirtazapine (Remeron) 45 mg BEDTIME ORAL 01/13/20 21:00 04/12/20 20:59 Morphine Sulfate (Morphine Sulfate) 2 mg Q4H PRN IVP Severe Pain (Pain Scale 7-10) 01/15/20 17:30 01/22/20 13:29 01/16/20 11:52 Piperacillin Sod/ Tazobactam Sod 3.375 gm/Sodium Chloride 110 ml @ 27.5 mls/hr EVERY 8 HOURS IVPB 01/16/20 14:00 01/21/20 13:59 01/17/20 05:06 Sennosides (Senokot) 8.6 mg BEDTIME ORAL 01/13/20 21:00 02/12/20 20:59 Tramadol HCl (Ultram) 50 mg Q6H PRN ORAL Moderate Pain (Pain Scale 4-6) 01/13/20 02:30 01/20/20 02:29 01/13/20 08:50 Assessment/Plan Assessment/Plan IMPRESSION: 1. Possible aspiration pneumonia. Followup CXR shows small left pleural effusion 2. UTI. 3. Dementia. 4. Parkinson's. DISCUSSION: Continue abx for UTI and possible aspiration pneumonia Continue oxygen as needed and pulmonary hygiene. I will follow as still tender. Saturating well on low flow O2 Ilene Becerra Omar Syed MD Jan 17, 2020 10:25
--- NOTE | 2020-01-17 10:43 | NUR ---
NURSE NOTES: NOTIFIED DR PANDYA FOR K+3.3. AWAITING FOR A CALL BACK. WILL CONT TO MONITOR. Addendum: 01/17/20 at 1841 [address] RADHA PA[address]INO LVN [address] PANDYA MADE AWARE NO NEW ORDER NOTED. WILL CONT TO MONITOR.
[2020-01-17] MEDS: Metoclopramide 10mg/2ml Inj IVP SCH ×2 (11:26→17:44)
[2020-01-17 12:00] VITALS: BP 159/68
[2020-01-17 16:00] VITALS: BP 135/61
--- NOTE | 2020-01-17 16:40 | NUR ---
CASE MANAGEMENT:REVIEW SI;ACUTE HYPOXIC RESP FAILURE. ENCEPHALOPATHY. UTI. 96.4 49 20 159/68 95% 3L NC H/H 10/32.2 K+ 3.3 CA 8.1 IS;REGLAN IV Q6 KCL IV ZOSYN IV Q8 IVF D5W @ 75 ML/HR LOVENOX SUBQ QD KEPPRA IV Q12 ASA NGT QD DEPAKOTE SPRINKLES NGT QD MED SURG STATUS DCP;FROM [facility] PLAN; SWALLOW EVAL
--- NOTE | 2020-01-17 19:19 | NUR ---
NURSE HAND-OFF: Important Events on Shift: FEEDING TUBE TOLERANCE. KEPT HOB ELEVATYED FOR ASPIRATION PNA. NO GASTRIC RESIDUAL NOTED @ THE END OF SHIFT. FEEDING RATE IS ON 45CC AND INCREASE TOLERATED. Patient Status: Diet: Pending Orders: Pending Results/Labs: Pending MD notification: Latest Vital Signs: Temperature 98.2 , Pulse 62 , B/P 135 /61 , Respiratory Rate 19 , O2 SAT 100 , Nasal Cannula, O2 Flow Rate 3.0 . Vital Sign Comment: Latest Houser Fall Score: 70 Fall Risk: High Risk Safety Measures: Call light Within Reach, Bed Alarm Zone 2, Side Rails Side Rails x3, Bed position Low and Locked. Fall Precautions: Yellow Socks Yellow Gown Door Sign Patient Fall Education Report given to MADDY GANN.
--- NOTE | 2020-01-17 19:54 | NUR ---
NURSE NOTES: Received report from COLLINS Hoffmann. Pt sleeping in bed, AAO x 0, non verbal, on room air. Tolerating tube feeding 40cc/hr and HOB elevated. No residual noted. Will increase the rate to reach the goal 55cc. Simmons intact and secured to the leg. IV sites intact and running IVF. Fall, aspiration, and seizure precaution maintained. Suction setup at bedside. Bed locked, lowest position, alarm on, side rails up, call light within reach. Will continue to monitor.
[2020-01-17 20:00] VITALS: BP 110/49
[2020-01-17] MEDS: Depakote 125mg Sprinkles NG SCH (20:19)
[2020-01-17] MEDS: Sennosides 8.6mg tab ORAL SCH (20:19)
[2020-01-18] VITALS: BP 98/46
--- NOTE | 2020-01-18 | Internal Med Progress Note ---
Subjective Date of Service: Jan 17, 2020 Physician Name Babatunde Harley Attending Physician Babatunde Harley MD Current Medications Medications (Trade) Dose Ordered Sig/Mikey Route PRN Reason Start Time Stop Time Status Last Admin Dose Admin Acetaminophen (Tylenol) 650 mg Q4H PRN ORAL MILD/TEMP 01/13/20 02:30 02/12/20 02:29 01/16/20 16:55 Albuterol/ Ipratropium (Albuterol/ Ipratropium) 3 ml Q6H PRN HHN For Cough 01/13/20 03:00 01/18/20 02:59 Aspirin (ASA) 81 mg DAILY ORAL 01/13/20 09:00 02/27/20 08:59 01/17/20 09:04 Barium Sulfate (Varibar Honey) 250 ml NOW PRN MC RAD 01/16/20 15:58 01/19/20 15:57 Barium Sulfate (Varibar Camas) 240 ml NOW PRN MC RAD 01/16/20 15:58 01/19/20 15:57 Barium Sulfate (Varibar Pudding) 230 ml NOW PRN MC RAD 01/16/20 15:58 01/19/20 15:57 Barium Sulfate (Varibar Thin Liquid powder) 148 gm NOW PRN MC RAD 01/16/20 15:58 01/19/20 15:57 Carbidopa/Levodopa (Sinemet 25/100) 1 tab BID ORAL 01/13/20 09:00 02/12/20 08:59 01/17/20 17:20 Dextrose/Sodium Chloride 1,000 ml @ 75 mls/hr [id number] IV 01/16/20 09:45 02/15/20 09:44 01/17/20 12:22 Divalproex Sodium (Depakote Sprinkles) 500 mg BEDTIME NG 01/13/20 21:00 02/12/20 20:59 01/17/20 20:19 Docusate Sodium (Colace) 100 mg TWICE A DAY ORAL 01/13/20 09:00 02/12/20 08:59 01/17/20 17:20 Donepezil HCl (Aricept) 10 mg DAILY ORAL 01/13/20 09:00 02/12/20 08:59 01/17/20 09:04 Enoxaparin Sodium (Lovenox) 40 mg DAILY SUBQ 01/15/20 09:00 04/14/20 08:59 01/17/20 09:04 Gabapentin (Neurontin) 100 mg THREE TIMES A DAY ORAL 01/13/20 09:00 02/12/20 08:59 01/17/20 17:20 Levetiracetam 100 ml @ 400 mls/hr Q12HR IVPB 01/14/20 23:45 04/13/20 23:44 01/17/20 20:19 Lorazepam (Ativan 2mg/ml 1ml) 0.25 mg Q4H PRN IV For Anxiety 01/16/20 09:45 01/23/20 09:44 01/16/20 09:57 Lorazepam (Ativan) 0.5 mg Q4H PRN ORAL For Anxiety 01/13/20 02:30 01/20/20 02:29 01/16/20 16:54 Magnesium Hydroxide (Mom) 30 ml DAILY PRN ORAL Constipation 01/13/20 02:30 02/12/20 02:29 Metoclopramide HCl (Reglan) 5 mg Q6HR IVP 01/17/20 10:30 02/16/20 10:29 01/17/20 17:44 Mirtazapine (Remeron) 45 mg BEDTIME ORAL 01/13/20 21:00 04/12/20 20:59 01/17/20 20:19 Morphine Sulfate (Morphine Sulfate) 2 mg Q4H PRN IVP Severe Pain (Pain Scale 7-10) 01/15/20 17:30 01/22/20 13:29 01/16/20 11:52 Piperacillin Sod/ Tazobactam Sod 3.375 gm/Sodium Chloride 110 ml @ 27.5 mls/hr EVERY 8 HOURS IVPB 01/16/20 14:00 01/21/20 13:59 01/17/20 22:14 Sennosides (Senokot) 8.6 mg BEDTIME ORAL 01/13/20 21:00 02/12/20 20:59 01/17/20 20:19 Tramadol HCl (Ultram) 50 mg Q6H PRN ORAL Moderate Pain (Pain Scale 4-6) 01/13/20 02:30 01/20/20 02:29 01/13/20 08:50 Allergies: Coded Allergies: No Known Allergies (Unverified , 09/25/18) ROS Limited/Unobtainable: Yes Constitutional: Reports: no symptoms All Systems: reviewed and negative except above Subjective able to speak today short answers NGT feeding in progress Objective Last Vital Signs Date Time Temp Pulse Resp B/P (MAP) Pulse Ox O2 Delivery O2 Flow Rate FiO2 01/17/20 21:00 Nasal Cannula 3.0 01/17/20 20:00 98.1 59 21 110/49 (69) 99 01/17/20 09:41 21 General Appearance: no apparent distress EENT: other - ngt in place Neck: supple Cardiovascular: normal rate, regular rhythm Respiratory/Chest: lungs clear Abdomen: normal bowel sounds, non tender, soft, no mass Genitourinary/Rectal: normal genital exam Neurologic: responsive, motor weakness, sensory deficit, disoriented Laboratory Tests Test 01/17/20 06:19 Sodium Level 143 MMOL/L (136-145) Potassium Level 3.3 MMOL/L (3.5-5.1) L Chloride Level 110 MMOL/L (98-107) H Carbon Dioxide Level 26 MMOL/L (21-32) Anion Gap 8 mmol/L (5-15) Blood Urea Nitrogen 8 mg/dL (7-18) Creatinine 0.8 MG/DL (0.55-1.30) Estimat Glomerular Filtration Rate > 60 mL/min (>60) Glucose Level 138 MG/DL (74-106) H Calcium Level 8.1 MG/DL (8.5-10.1) L Intake and Output 01/16/20 01/17/20 19:00 07:00 Intake Total 1115.0 ml 575 ml Output Total 900 ml 600 ml Balance 215.0 ml -25 ml Free Water 30 ml IV Total 885.0 ml Tube Feeding 230 ml 545 ml Output Urine Total 900 ml 600 ml # Bowel Movements 1 Assessment/Plan Status: doing well, stable, progressing Assessment/Plan Impression: acute hypoxic resp failure fever hypotension possible early shock acute toxic encephalopathy UTI parkinson's disease dementia with behavior disturbance sinus bradycardia bedbound status senile debility anxiety VRE colonization hypernatremia hypokalemia PLAN: bedside swallow eval Kcl 40 meq IV over 4 hrs IVF NGT TF keppra to IV ammonia 41 ABG noted PCo2 normal DC atenolol due to bradycardia IV abx f/u cx pulm/ID eval pain control aspiration precaution oxygen morphine prn pain IV FULL CODE. d/w son clinton over 35 min spent today. over 50% with counseling , coordinate of care , advance care planning d/w son. BABATUNDE HARLEY MD INTERNAL MEDICINE [phone] Babatunde Harley MD Jan 18, 2020 00:00
[2020-01-18] MEDS: Metoclopramide 10mg/2ml Inj IVP SCH ×4 (00:27→17:50)
[2020-01-18] MEDS: D5 1/2NS 1,000 ML IV SCH ×2 (00:28→15:41)
--- NOTE | 2020-01-18 01:37 | Cardiology Report ---
APPROVED REPORT EKG Measurement Heart [id number] <Conclusion> Undetermined rhythm Low voltage QRS Septal infarct, age undetermined Abnormal ECG
[2020-01-18] MEDS: Morphine Sulfate 2mg/ml Inj(IV/IM USE ONLY) IVP PRN (03:26)
[2020-01-18 04:00] VITALS: BP 99/40
[2020-01-18] MEDS: Piperacillin/Tazobactam 3.375 GM in NS 110 ML IVPB SCH ×3 (05:03→23:00)
[2020-01-18 06:06] LABS: BASOPHILS % (AUTO) 0.4 % (0.0-2.0); EOSINOPHILS % (AUTO) 2.2 % (0.0-3.0); HEMATOCRIT 35.4 % (37.0-47.0); HEMOGLOBIN 11.3 G/DL (12.0-16.0); LYMPHOCYTES % (AUTO) 24.9 % (20.0-45.0); MEAN CORPUSCULAR VOLUME 86 FL (80-99); MONOCYTES % (AUTO) 6.5 % (1.0-10.0); PLATELET COUNT 172 K/UL (150-450); RED BLOOD COUNT 4.11 M/UL (4.20-5.40); RED CELL DISTRIBUTION WIDTH 13.7 % (11.6-14.8); WHITE BLOOD COUNT 9.1 K/UL (4.8-10.8)
[2020-01-18 06:42] LABS: ALANINE AMINOTRANSFERASE 16 U/L (12-78); ALBUMIN 2.2 G/DL (3.4-5.0); ALBUMIN/GLOBULIN RATIO 0.5 (1.0-2.7); ALKALINE PHOSPHATASE 59 U/L (46-116); ANION GAP 5 mmol/L (5-15); ASPARTATE AMINO TRANSFERASE 27 U/L (15-37); BILIRUBIN,TOTAL 0.4 MG/DL (0.2-1.0); BLOOD UREA NITROGEN 8 mg/dL (7-18); CALCIUM 8.2 MG/DL (8.5-10.1); CARBON DIOXIDE 28 MMOL/L (21-32); CHLORIDE 111 MMOL/L (98-107); CREATININE 0.9 MG/DL (0.55-1.30); SODIUM 144 MMOL/L (136-145)
--- NOTE | 2020-01-18 07:25 | NUR ---
NURSE NOTES: Received report from MADDY Medina. Patient received lying in hospital bed, with HOB elevated. Pt is responsive to name calling, moans but does not open eyes as patient is legally blind. Pt is on O2 at 3LPM with no s/s of respiratory distress. NGT Dobhoff in place running Vital AF 1.2 at 55 ml/hr. Pt is incontinent x2, tim DC'd last night. LBM on 01/18/20. Skin intact. pIV to R FA 22g running D5 1/2 NS at 75 ml/hr. L FA 22 g pIV asymptomatic and intact. Planned for CXR and ST eval today. Bed in lowest position, locked, with bed alarm on. Will continue POC.
--- NOTE | 2020-01-18 07:42 | NUR ---
NURSE HAND-OFF: Important Events on Shift:DC tim, tolerating GT feeding Patient Status: stable Diet: Vital 1.2 Pending Orders: CX, ST eval Pending Results/Labs:AM labs Pending MD notification:N Latest Vital Signs: Temperature 98.6 , Pulse 60 , B/P 99 /40 , Respiratory Rate 21 , O2 SAT 98 , Nasal Cannula, O2 Flow Rate 3.0 . Vital Sign Comment: Latest Houser Fall Score: 70 Fall Risk: High Risk Safety Measures: Call light Within Reach, Bed Alarm Zone 2, Side Rails Side Rails x3, Bed position Low and Locked. Fall Precautions: Yellow Socks Yellow Gown Door Sign Patient Fall Education Report given to [Yobani].
[2020-01-18 08:00] VITALS: BP 99/44
[2020-01-18] MEDS: Docusate 100mg cap ORAL SCH ×2 (10:02→17:50)
[2020-01-18] MEDS: Aspirin Baby 81mg ORAL SCH (10:02)
[2020-01-18] MEDS: Donepezil 10mg tab ORAL SCH (10:02)
[2020-01-18] MEDS: Levodopa/Carbidopa 25/100 tab ORAL SCH ×2 (10:02→17:50)
[2020-01-18] MEDS: Enoxaparin 40mg Inj SUBQ SCH (10:03)
[2020-01-18] MEDS: levETIRAcetam 500mg/NS100ml 100 ML IVPB SCH ×2 (10:10→21:32)
--- NOTE | 2020-01-18 10:44 | General Progress Note ---
Assessment/Plan Problem List: (1) Diabetes mellitus ICD Codes: E11.9 - Type 2 diabetes mellitus without complications SNOMED: 49517002 (2) HTN (hypertension) ICD Codes: I10 - Essential (primary) hypertension SNOMED: 07279757 (3) Parkinson disease ICD Codes: G20 - Parkinson's disease SNOMED: 26242954 (4) Intractable nausea and vomiting ICD Codes: R11.2 - Nausea with vomiting, unspecified SNOMED: 019892994 (5) Urinary tract infection ICD Codes: N39.0 - Urinary tract infection, site not specified SNOMED: 60750599 Status: doing well, stable, progressing Assessment/Plan: dysphagia s/p NGT placement change TF to Glucerna on reglan swallow eval may need PEG Subjective ROS Limited/Unobtainable: No Allergies: Coded Allergies: No Known Allergies (Unverified , 09/25/18) Objective Last 24 Hour Vital Signs Date Time Temp Pulse Resp B/P (MAP) Pulse Ox O2 Delivery O2 Flow Rate FiO2 01/18/20 08:00 98.8 59 18 99/44 (62) 97 01/18/20 04:00 98.6 60 21 99/40 (59) 98 01/18/20 00:00 98.0 58 22 98/46 (63) 99 01/17/20 21:00 Nasal Cannula 3.0 01/17/20 20:00 98.1 59 21 110/49 (69) 99 01/17/20 16:00 98.2 62 19 135/61 (85) 100 01/17/20 12:00 97.2 66 19 159/68 (98) 95 Intake and Output 01/17/20 01/18/20 19:00 07:00 Intake Total 1020.0 ml 775 ml Output Total 900 ml Balance 120.0 ml 775 ml Free Water 100 ml 200 ml IV Total 565.0 ml Tube Feeding 355 ml 575 ml Output Urine Total 900 ml # Bowel Movements 6 Laboratory Tests 01/18/20 05:14: White Blood Count 9.1, Red Blood Count 4.11L, Hemoglobin 11.3L, Hematocrit 35.4L , Mean Corpuscular Volume 86, Mean Corpuscular Hemoglobin 27.5, Mean Corpuscular Hemoglobin Concent 31.9L, Red Cell Distribution Width 13.7, Platelet Count 172, Mean Platelet Volume 8.6, Neutrophils (%) (Auto) 66.0, Lymphocytes (%) (Auto) 24.9, Monocytes (%) (Auto) 6.5, Eosinophils (%) (Auto) 2.2, Basophils (%) (Auto) 0.4, Sodium Level 144, Potassium Level 4.0, Chloride Level 111H, Carbon Dioxide Level 28, Anion Gap 5, Blood Urea Nitrogen 8, Creatinine 0.9, Estimat Glomerular Filtration Rate > 60, Glucose Level 175H, Calcium Level 8.2L, Magnesium Level 1.8, Total Bilirubin 0.4, Aspartate Amino Transf (AST/SGOT) 27, Alanine Aminotransferase (ALT/SGPT) 16, Alkaline Phosphatase 59, Total Protein 6.4, Albumin 2.2L, Globulin 4.2, Albumin/Globulin Ratio 0.5L Height (Feet): 5 Height (Inches): 0.00 Weight (Pounds): 130 General Appearance: no apparent distress EENT: normal ENT inspection Neck: supple Cardiovascular: normal rate Respiratory/Chest: decreased breath sounds Abdomen: normal bowel sounds, non tender, soft Extremities: non-tender Willem Rolle MD Jan 18, 2020 10:44
[2020-01-18 12:00] VITALS: BP 109/55
--- NOTE | 2020-01-18 12:04 | Diagnostic Imaging Report ---
Indication: Shortness of Technique: One view of the chest Comparison: 01/16/2020 Findings: Weighted Dobbhoff type feeding tube is coiled in the gastric fundus. There is slight blunting of left costophrenic sulcus again demonstrated, may reflect pleural fluid versus thickening. The remainder the lungs and pleural spaces are clear. The heart size is normal. There are surgical clips in the right axilla Impression: Left sided pleural effusion versus pleural thickening, unchanged over 2 days. No acute process otherwise Other findings as noted
--- NOTE | 2020-01-18 15:08 | NUR ---
ST NOTE Patient being seen for dysphagia tx/management. Currently Patient is NPO with NGT for primary means of nutrition/hydration and for medication management. Of note, Patient was previously consuming Puree solids and Honey Thick Liquids at nursing facility per transfer documents. Patient re-positioned upright for PO trials, provided oral care with suction. Patient's ability to communicate basic wants and needs is impaired with poor oral motor ROM and coordination for clear speech. Speech intelligibility approx 60% in context with Patient's main communication is via moaning. Patient noted with slightly dry oral cavity, was noted with gurgled vocal quality due to poor secretion management. Patient provided clear verbal instruction and education during session to assure Patient participation and agreement with PO trials given Patient is blind. Patient given trace PO trials of thin liquids and honey thick liquids via teaspoon with verbal and tactile cues to assure Patient is aware of PO trials. Oral phase characterized by poor awareness of PO trial in oral cavity, incomplete labial seal for initiation of swallow, poor bolus control resulting in suspected immediate posterior loss of bolus and aspiration signified by weak coughing, increasingly wet vocal quality, no laryngeal elevation upon palpation. Remaining PO trials suctioned from Patient's mouth due to Patient's being a high risk for aspiration. Patient presenting with ongoing and chronic dysphagia, Patient's ability to meet adequate nutrition and hydration via PO is guarded, Patient would benefit from GI consult to determine Patient's candidacy for PEG. Patient would benefit from METAL CONTROL COORDINATOR re-evaluation s/p PEG to determine Patient's appropriateness for METAL CONTROL COORDINATOR dysphagia therapy with neon glass bender goal for oral gratification versus for adequate PO nutrition/hydration. METAL CONTROL COORDINATOR made MADDY Hilton aware of results and recommendations. will f/u with Patient will in house for ongoing dysphagia tx. METAL CONTROL COORDINATOR [phone]
[2020-01-18] MEDS ORDERED: Varibar Honey 250ml MC PRN (15:15)
[2020-01-18] MEDS ORDERED: Varibar Pudding 230ml MC PRN (15:15)
[2020-01-18] MEDS ORDERED: Varibar Thin Liquid powder 148gm MC PRN (15:15)
[2020-01-18] MEDS ORDERED: Varibar Nectar 240ml MC PRN (15:15)
--- NOTE | 2020-01-18 15:49 | Infectious Diseases Prog Note ---
Assessment/Plan Assessment/Plan ASSESSMENT AND PLAN: 1. Pseudomonas uti, aspiration pna/hcap, vre colonization, mrsa screen negative - zosyn - day # 6 abx - monitor labs and chest x-ray - clinically stable 2. Diabetes mellitus. 3. Hypertension. 4. Blood sugar and blood pressure treatment per primary care team for diabetes and hypertension. 5. Parkinson's. 6. Dementia. 7. Dysphagia. 8. Aspiration risk. 9. Weakness. 10. Continue treatment per primary consultants. 11. No known drug allergies. 12. Social history is negative. 13. Family history is noncontributory. 14. MAR was noted. 15. Case was discussed with RN. 16. Continue treatment per primary consultants. 17. Orders were noted and entered. 18. Skin care protocol. Subjective Constitutional: Reports: fatigue; Denies: fever HEENT: Denies: congestion Respiratory: Denies: shortness of breath Cardiovascular: Denies: chest pain Gastrointestinal/Abdominal: Denies: nausea, vomiting, diarrhea Genitourinary: Reports: other - + tim Neurologic: Denies: headache Psychiatric: Denies: depression Skin: Denies: rash Hematologic: Denies: bleeding Musculoskeletal: Denies: pain Allergies: Coded Allergies: No Known Allergies (Unverified , 09/25/18) Objective Last 24 Hour Vital Signs Date Time Temp Pulse Resp B/P (MAP) Pulse Ox O2 Delivery O2 Flow Rate FiO2 01/18/20 12:00 98.6 75 18 109/55 (73) 95 01/18/20 09:00 Nasal Cannula 3.0 01/18/20 08:00 98.8 59 18 99/44 (62) 97 01/18/20 07:00 59 20 97 Nasal Cannula 3.0 32 01/18/20 04:00 98.6 60 21 99/40 (59) 98 01/18/20 00:00 98.0 58 22 98/46 (63) 99 01/17/20 21:00 Nasal Cannula 3.0 01/17/20 20:00 98.1 59 21 110/49 (69) 99 01/17/20 16:00 98.2 62 19 135/61 (85) 100 Height (Feet): 5 Height (Inches): 0.00 Weight (Pounds): 130 General Appearance: no acute distress HEENT: normocephalic, atraumatic, anicteric, mucous membranes moist Respiratory/Chest: no respiratory distress, no accessory muscle use, crackles/ rales, rhonchi - bilaterally Cardiovascular: normal rate, regular rhythm, no gallop/murmur, no JVD Abdomen: normal bowel sounds, soft, non tender, no organomegaly, non distended Genitourinary: other - + tim - urine slt cloudy Extremities: no cyanosis Skin: no rash 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 Small bilateral pleural effusions, left greater than right. Overall, the degree of pleural effusion on the left has improved. No pneumothorax. Cardiomegaly. Calcified aorta. Microbiology Date/Time Source Procedure Growth Status 01/12/20 22:30 Blood Blood Culture - Final NO GROWTH AFTER 5 DAYS Complete 01/13/20 00:13 Nasal Nares MRSA Culture - Final NO METHICILLIN RESISTANT STAPH AUREUS... Complete 01/12/20 22:30 Urine,Clean Catch Urine Culture - Final Pseudomonas Aeruginosa Complete 01/13/20 00:13 Rectum - Final NO CARBAPENEM-RESISTANT ENTEROBACTERI... Complete Laboratory Tests Test 01/18/20 05:14 White Blood Count 9.1 K/UL (4.8-10.8) Red Blood Count 4.11 M/UL (4.20-5.40) L Hemoglobin 11.3 G/DL (12.0-16.0) L Hematocrit 35.4 % (37.0-47.0) L Mean Corpuscular Volume 86 FL (80-99) Mean Corpuscular Hemoglobin 27.5 PG (27.0-31.0) Mean Corpuscular Hemoglobin Concent 31.9 G/DL (32.0-36.0) L Red Cell Distribution Width 13.7 % (11.6-14.8) Platelet Count 172 K/UL (150-450) Mean Platelet Volume 8.6 FL (6.5-10.1) Neutrophils (%) (Auto) 66.0 % (45.0-75.0) Lymphocytes (%) (Auto) 24.9 % (20.0-45.0) Monocytes (%) (Auto) 6.5 % (1.0-10.0) Eosinophils (%) (Auto) 2.2 % (0.0-3.0) Basophils (%) (Auto) 0.4 % (0.0-2.0) Sodium Level 144 MMOL/L (136-145) Potassium Level 4.0 MMOL/L (3.5-5.1) Chloride Level 111 MMOL/L (98-107) H Carbon Dioxide Level 28 MMOL/L (21-32) Anion Gap 5 mmol/L (5-15) Blood Urea Nitrogen 8 mg/dL (7-18) Creatinine 0.9 MG/DL (0.55-1.30) Estimat Glomerular Filtration Rate > 60 mL/min (>60) Glucose Level 175 MG/DL (74-106) H Calcium Level 8.2 MG/DL (8.5-10.1) L Magnesium Level 1.8 MG/DL (1.8-2.4) Total Bilirubin 0.4 MG/DL (0.2-1.0) Aspartate Amino Transf (AST/SGOT) 27 U/L (15-37) Alanine Aminotransferase (ALT/SGPT) 16 U/L (12-78) Alkaline Phosphatase 59 U/L (46-116) Total Protein 6.4 G/DL (6.4-8.2) Albumin 2.2 G/DL (3.4-5.0) L Globulin 4.2 g/dL Albumin/Globulin Ratio 0.5 (1.0-2.7) L Current Medications Medications (Trade) Dose Ordered Sig/Mikey Route PRN Reason Start Time Stop Time Status Last Admin Dose Admin Acetaminophen (Tylenol) 650 mg Q4H PRN ORAL MILD/TEMP 01/13/20 02:30 02/12/20 02:29 01/16/20 16:55 Aspirin (ASA) 81 mg DAILY ORAL 01/13/20 09:00 02/27/20 08:59 01/18/20 10:02 Barium Sulfate (Varibar Honey) 250 ml NOW PRN MC RAD 01/18/20 15:15 01/21/20 15:14 Barium Sulfate (Varibar [place]) 240 ml NOW PRN MC RAD 01/18/20 15:15 01/21/20 15:14 Barium Sulfate (Varibar Pudding) 230 ml NOW PRN MC RAD 01/18/20 15:15 01/21/20 15:14 Barium Sulfate (Varibar Thin Liquid powder) 148 gm NOW PRN RAD 01/18/20 15:15 01/21/20 15:14 Carbidopa/Levodopa (Sinemet 25/100) 1 tab BID ORAL 01/13/20 09:00 02/12/20 08:59 01/18/20 10:02 Dextrose/Sodium Chloride 1,000 ml @ 75 mls/hr [id number] IV 01/16/20 09:45 02/15/20 09:44 01/18/20 00:28 Divalproex Sodium (Depakote Sprinkles) 500 mg BEDTIME NG 01/13/20 21:00 02/12/20 20:59 01/17/20 20:19 Docusate Sodium (Colace) 100 mg TWICE A DAY ORAL 01/13/20 09:00 02/12/20 08:59 01/18/20 10:02 Donepezil HCl (Aricept) 10 mg DAILY ORAL 01/13/20 09:00 02/12/20 08:59 01/18/20 10:02 Enoxaparin Sodium (Lovenox) 40 mg DAILY SUBQ 01/15/20 09:00 04/14/20 08:59 01/18/20 10:03 Gabapentin (Neurontin) 100 mg THREE TIMES A DAY ORAL 01/13/20 09:00 02/12/20 08:59 01/18/20 12:46 Levetiracetam 100 ml @ 400 mls/hr Q12HR IVPB 01/14/20 23:45 04/13/20 23:44 01/18/20 10:10 Lorazepam (Ativan 2mg/ml 1ml) 0.25 mg Q4H PRN IV For Anxiety 01/16/20 09:45 01/23/20 09:44 01/16/20 09:57 Lorazepam (Ativan) 0.5 mg Q4H PRN ORAL For Anxiety 01/13/20 02:30 01/20/20 02:29 01/16/20 16:54 Magnesium Hydroxide (Mom) 30 ml DAILY PRN ORAL Constipation 01/13/20 02:30 02/12/20 02:29 Metoclopramide HCl (Reglan) 5 mg Q6HR IVP 01/17/20 10:30 02/16/20 10:29 01/18/20 12:46 Mirtazapine (Remeron) 45 mg BEDTIME ORAL 01/13/20 21:00 04/12/20 20:59 01/17/20 20:19 Morphine Sulfate (Morphine Sulfate) 2 mg Q4H PRN IVP Severe Pain (Pain Scale 7-10) 01/15/20 17:30 01/22/20 13:29 01/18/20 03:26 Piperacillin Sod/ Tazobactam Sod 3.375 gm/Sodium Chloride 110 ml @ 27.5 mls/hr EVERY 8 HOURS IVPB 01/16/20 14:00 01/21/20 13:59 01/18/20 14:36 Sennosides (Senokot) 8.6 mg BEDTIME ORAL 01/13/20 21:00 02/12/20 20:59 01/17/20 20:19 Tramadol HCl (Ultram) 50 mg Q6H PRN ORAL Moderate Pain (Pain Scale 4-6) 01/13/20 02:30 01/20/20 02:29 01/13/20 08:50 Rola Junior MD Jan 18, 2020 15:49
[2020-01-18 16:00] VITALS: BP 101/57
--- NOTE | 2020-01-18 16:12 | NUR ---
CASE MANAGEMENT:REVIEW SI;UTI. POSS ASPIRATION PNA. 98.8 58 98/46 95% 3L NC FIO2 32% BG 175 ALB 2.2 IS;KCL IV REGLAN IV Q6 ZOSYN IV Q8 IVF D5W @ Q8 LOVENOX SUBQ QD KEPPRA IV Q12 DEPAKOTE SPRINKLES NG QD ASA NG QD MORPHINE IV Q4 PRN MED SURG STATUS DCP;FROM [facility] PLAN; SWALLOW EVAL ~ FAILED POSSIBLE PEG PLACEMENT
--- NOTE | 2020-01-18 18:55 | Pulmonology Progress Note ---
Subjective ROS Limited/Unobtainable: No Interval Events: None new Constitutional: Reports: fatigue; Denies: fever HEENT: Repors: no symptoms Respiratory: Reports: no symptoms Cardiovascular: Reports: no symptoms Gastrointestinal/Abdominal: Denies: nausea, vomiting, diarrhea Genitourinary: Reports: no symptoms Psychiatric: Denies: depression Skin: Denies: rash Musculoskeletal: Denies: pain Allergies: Coded Allergies: No Known Allergies (Unverified , 09/25/18) All Systems: reviewed and negative except above Objective Last 24 Hour Vital Signs Date Time Temp Pulse Resp B/P (MAP) Pulse Ox O2 Delivery O2 Flow Rate FiO2 01/18/20 16:00 98.8 81 18 101/57 (72) 96 01/18/20 12:00 98.6 75 18 109/55 (73) 95 01/18/20 09:00 Nasal Cannula 3.0 01/18/20 08:00 98.8 59 18 99/44 (62) 97 01/18/20 07:00 59 20 97 Nasal Cannula 3.0 32 01/18/20 04:00 98.6 60 21 99/40 (59) 98 01/18/20 00:00 98.0 58 22 98/46 (63) 99 01/17/20 21:00 Nasal Cannula 3.0 01/17/20 20:00 98.1 59 21 110/49 (69) 99 Intake and Output 01/17/20 01/18/20 19:00 07:00 Intake Total 1020.0 ml 830 ml Output Total 900 ml Balance 120.0 ml 830 ml Free Water 100 ml 200 ml IV Total 565.0 ml Tube Feeding 355 ml 630 ml Output Urine Total 900 ml # Bowel Movements 6 General Appearance: no acute distress HEENT: normocephalic Respiratory: chest wall non-tender Cardiovascular: normal peripheral pulses Abdomen: normal bowel sounds Laboratory Tests 01/18/20 05:14: White Blood Count 9.1, Red Blood Count 4.11L, Hemoglobin 11.3L, Hematocrit 35.4L , Mean Corpuscular Volume 86, Mean Corpuscular Hemoglobin 27.5, Mean Corpuscular Hemoglobin Concent 31.9L, Red Cell Distribution Width 13.7, Platelet Count 172, Mean Platelet Volume 8.6, Neutrophils (%) (Auto) 66.0, Lymphocytes (%) (Auto) 24.9, Monocytes (%) (Auto) 6.5, Eosinophils (%) (Auto) 2.2, Basophils (%) (Auto) 0.4, Sodium Level 144, Potassium Level 4.0, Chloride Level 111H, Carbon Dioxide Level 28, Anion Gap 5, Blood Urea Nitrogen 8, Creatinine 0.9, Estimat Glomerular Filtration Rate > 60, Glucose Level 175H, Calcium Level 8.2L, Magnesium Level 1.8, Total Bilirubin 0.4, Aspartate Amino Transf (AST/SGOT) 27, Alanine Aminotransferase (ALT/SGPT) 16, Alkaline Phosphatase 59, Total Protein 6.4, Albumin 2.2L, Globulin 4.2, Albumin/Globulin Ratio 0.5L Current Medications Medications (Trade) Dose Ordered Sig/Mikey Route PRN Reason Start Time Stop Time Status Last Admin Dose Admin Acetaminophen (Tylenol) 650 mg Q4H PRN ORAL MILD/TEMP 01/13/20 02:30 02/12/20 02:29 01/16/20 16:55 Aspirin (ASA) 81 mg DAILY ORAL 01/13/20 09:00 02/27/20 08:59 01/18/20 10:02 Barium Sulfate (Varibar Honey) 250 ml NOW PRN MC RAD 01/18/20 15:15 01/21/20 15:14 Barium Sulfate (Varibar [place]) 240 ml NOW PRN MC RAD 01/18/20 15:15 01/21/20 15:14 Barium Sulfate (Varibar Pudding) 230 ml NOW PRN MC RAD 01/18/20 15:15 01/21/20 15:14 Barium Sulfate (Varibar Thin Liquid powder) 148 gm NOW PRN MC RAD 01/18/20 15:15 01/21/20 15:14 Carbidopa/Levodopa (Sinemet 25/100) 1 tab BID ORAL 01/13/20 09:00 02/12/20 08:59 01/18/20 17:50 Dextrose/Sodium Chloride 1,000 ml @ 75 mls/hr [id number] IV 01/16/20 09:45 02/15/20 09:44 01/18/20 15:41 Divalproex Sodium (Depakote Sprinkles) 500 mg BEDTIME NG 01/13/20 21:00 02/12/20 20:59 01/17/20 20:19 Docusate Sodium (Colace) 100 mg TWICE A DAY ORAL 01/13/20 09:00 02/12/20 08:59 01/18/20 10:02 Donepezil HCl (Aricept) 10 mg DAILY ORAL 01/13/20 09:00 02/12/20 08:59 01/18/20 10:02 Enoxaparin Sodium (Lovenox) 40 mg DAILY SUBQ 01/15/20 09:00 04/14/20 08:59 01/18/20 10:03 Gabapentin (Neurontin) 100 mg THREE TIMES A DAY ORAL 01/13/20 09:00 02/12/20 08:59 01/18/20 17:50 Levetiracetam 100 ml @ 400 mls/hr Q12HR IVPB 01/14/20 23:45 04/13/20 23:44 01/18/20 10:10 Lorazepam (Ativan 2mg/ml 1ml) 0.25 mg Q4H PRN IV For Anxiety 01/16/20 09:45 01/23/20 09:44 01/16/20 09:57 Lorazepam (Ativan) 0.5 mg Q4H PRN ORAL For Anxiety 01/13/20 02:30 01/20/20 02:29 01/16/20 16:54 Magnesium Hydroxide (Mom) 30 ml DAILY PRN ORAL Constipation 01/13/20 02:30 02/12/20 02:29 Metoclopramide HCl (Reglan) 5 mg Q6HR IVP 01/17/20 10:30 02/16/20 10:29 01/18/20 17:50 Mirtazapine (Remeron) 45 mg BEDTIME ORAL 01/13/20 21:00 04/12/20 20:59 01/17/20 20:19 Morphine Sulfate (Morphine Sulfate) 2 mg Q4H PRN IVP Severe Pain (Pain Scale 7-10) 01/15/20 17:30 01/22/20 13:29 01/18/20 03:26 Piperacillin Sod/ Tazobactam Sod 3.375 gm/Sodium Chloride 110 ml @ 27.5 mls/hr EVERY 8 HOURS IVPB 01/16/20 14:00 01/21/20 13:59 01/18/20 14:36 Sennosides (Senokot) 8.6 mg BEDTIME ORAL 01/13/20 21:00 02/12/20 20:59 01/17/20 20:19 Tramadol HCl (Ultram) 50 mg Q6H PRN ORAL Moderate Pain (Pain Scale 4-6) 01/13/20 02:30 01/20/20 02:29 01/13/20 08:50 Assessment/Plan Assessment/Plan IMPRESSION: 1. Possible aspiration pneumonia. Followup CXR shows small left pleural effusion 2. UTI. 3. Dementia. 4. Parkinson's. DISCUSSION: Continue abx for UTI and possible aspiration pneumonia Continue oxygen as needed and pulmonary hygiene. 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 Saturating well on low flow O2 Ilene Becerra Omar Syed MD Jan 18, 2020 18:55
--- NOTE | 2020-01-18 19:25 | NUR ---
NURSE HAND-OFF: Important Events on Shift: Pt titrated off O2 to RA, patient satting well, BM x 1 today, purewick applied, IV abx given, Pt failed swallow eval, recommended PEG placement by ST Patient Status: stable Diet: changed to Osmolite 1.2 at 55 ml/hr Pending Orders: n/a Pending Results/Labs: labs in am Pending MD notification: n/a Latest Vital Signs: Temperature 98.8 , Pulse 81 , B/P 101 /57 , Respiratory Rate 18 , O2 SAT 96 , Nasal Cannula, O2 Flow Rate 3.0 . Vital Sign Comment: monitor Latest Houser Fall Score: 70 Fall Risk: High Risk Safety Measures: Call light Within Reach, Bed Alarm Zone 2, Side Rails Side Rails x3, Bed position Low and Locked. Fall Precautions: Yellow Socks Yellow Gown Door Sign Patient Fall Education Report given to MADDY Grere. Endorsed POC.
--- NOTE | 2020-01-18 19:46 | NUR ---
NURSE NOTES: Patient is in bed, awake; unable to make needs known. No signs of distress or SOB. NG-tube in place and running feeding as ordered. HOB elevated. IVs intact and patent. Bed locked and in lowest position. Bed alarm on. Will continue plan of care.
[2020-01-18 20:00] VITALS: BP 132/69
[2020-01-18] MEDS: Sennosides 8.6mg tab ORAL SCH (21:29)
[2020-01-18] MEDS: Depakote 125mg Sprinkles NG SCH (21:30)
[2020-01-18] MEDS: LORazepam Inj 2mg/ml 1ml IV PRN (23:27)
--- NOTE | 2020-01-18 23:54 | Internal Med Progress Note ---
Subjective Date of Service: Jan 18, 2020 Physician Name Babatunde Harley Attending Physician Babatunde Harley MD Current Medications Medications (Trade) Dose Ordered Sig/Mikey Route PRN Reason Start Time Stop Time Status Last Admin Dose Admin Acetaminophen (Tylenol) 650 mg Q4H PRN ORAL MILD/TEMP 01/13/20 02:30 02/12/20 02:29 01/16/20 16:55 Aspirin (ASA) 81 mg DAILY ORAL 01/13/20 09:00 02/27/20 08:59 01/18/20 10:02 Barium Sulfate (Varibar Honey) 250 ml NOW PRN MC RAD 01/18/20 15:15 01/21/20 15:14 Barium Sulfate (Varibar [place]) 240 ml NOW PRN MC RAD 01/18/20 15:15 01/21/20 15:14 Barium Sulfate (Varibar Pudding) 230 ml NOW PRN MC RAD 01/18/20 15:15 01/21/20 15:14 Barium Sulfate (Varibar Thin Liquid powder) 148 gm NOW PRN MC RAD 01/18/20 15:15 01/21/20 15:14 Carbidopa/Levodopa (Sinemet 25/100) 1 tab BID ORAL 01/13/20 09:00 02/12/20 08:59 01/18/20 17:50 Dextrose/Sodium Chloride 1,000 ml @ 75 mls/hr [id number] IV 01/16/20 09:45 02/15/20 09:44 01/18/20 15:41 Divalproex Sodium (Depakote Sprinkles) 500 mg BEDTIME NG 01/13/20 21:00 02/12/20 20:59 01/18/20 21:30 Docusate Sodium (Colace) 100 mg TWICE A DAY ORAL 01/13/20 09:00 02/12/20 08:59 01/18/20 10:02 Donepezil HCl (Aricept) 10 mg DAILY ORAL 01/13/20 09:00 02/12/20 08:59 01/18/20 10:02 Enoxaparin Sodium (Lovenox) 40 mg DAILY SUBQ 01/15/20 09:00 04/14/20 08:59 01/18/20 10:03 Gabapentin (Neurontin) 100 mg THREE TIMES A DAY ORAL 01/13/20 09:00 02/12/20 08:59 01/18/20 17:50 Levetiracetam 100 ml @ 400 mls/hr Q12HR IVPB 01/14/20 23:45 04/13/20 23:44 01/18/20 21:32 Lorazepam (Ativan 2mg/ml 1ml) 0.25 mg Q4H PRN IV For Anxiety 01/16/20 09:45 01/23/20 09:44 01/18/20 23:27 Lorazepam (Ativan) 0.5 mg Q4H PRN ORAL For Anxiety 01/13/20 02:30 01/20/20 02:29 01/16/20 16:54 Magnesium Hydroxide (Mom) 30 ml DAILY PRN ORAL Constipation 01/13/20 02:30 02/12/20 02:29 Metoclopramide HCl (Reglan) 5 mg Q6HR IVP 01/17/20 10:30 02/16/20 10:29 01/18/20 17:50 Mirtazapine (Remeron) 45 mg BEDTIME ORAL 01/13/20 21:00 04/12/20 20:59 01/18/20 21:29 Morphine Sulfate (Morphine Sulfate) 2 mg Q4H PRN IVP Severe Pain (Pain Scale 7-10) 01/15/20 17:30 01/22/20 13:29 01/18/20 03:26 Piperacillin Sod/ Tazobactam Sod 3.375 gm/Sodium Chloride 110 ml @ 27.5 mls/hr EVERY 8 HOURS IVPB 01/16/20 14:00 01/21/20 13:59 01/18/20 23:00 Sennosides (Senokot) 8.6 mg BEDTIME ORAL 01/13/20 21:00 02/12/20 20:59 01/18/20 21:29 Tramadol HCl (Ultram) 50 mg Q6H PRN ORAL Moderate Pain (Pain Scale 4-6) 01/13/20 02:30 01/20/20 02:29 01/13/20 08:50 Allergies: Coded Allergies: No Known Allergies (Unverified , 09/25/18) ROS Limited/Unobtainable: Yes Constitutional: Reports: no symptoms Respiratory: Reports: no symptoms Genitourinary: Reports: no symptoms All Systems: reviewed and negative except above Subjective able to speak today short answers NGT feeding in progress foleyy dced on purewick failed ST eval high risk of aspiration Objective Last Vital Signs Date Time Temp Pulse Resp B/P (MAP) Pulse Ox O2 Delivery O2 Flow Rate FiO2 01/18/20 23:27 76 20 149/74 96 01/18/20 21:00 Room Air 01/18/20 20:00 97.3 01/18/20 09:00 3.0 01/18/20 07:00 32 General Appearance: no apparent distress, other - eyes closed Neck: supple Cardiovascular: normal rate, regular rhythm, no JVD Respiratory/Chest: lungs clear Abdomen: normal bowel sounds, non tender, soft, no organomegaly Genitourinary/Rectal: normal genital exam Extremities: non-tender, other - severe R knee flexion contracture, L foot drop Laboratory Tests Test 01/18/20 05:14 White Blood Count 9.1 K/UL (4.8-10.8) Red Blood Count 4.11 M/UL (4.20-5.40) L Hemoglobin 11.3 G/DL (12.0-16.0) L Hematocrit 35.4 % (37.0-47.0) L Mean Corpuscular Volume 86 FL (80-99) Mean Corpuscular Hemoglobin 27.5 PG (27.0-31.0) Mean Corpuscular Hemoglobin Concent 31.9 G/DL (32.0-36.0) L Red Cell Distribution Width 13.7 % (11.6-14.8) Platelet Count 172 K/UL (150-450) Mean Platelet Volume 8.6 FL (6.5-10.1) Neutrophils (%) (Auto) 66.0 % (45.0-75.0) Lymphocytes (%) (Auto) 24.9 % (20.0-45.0) Monocytes (%) (Auto) 6.5 % (1.0-10.0) Eosinophils (%) (Auto) 2.2 % (0.0-3.0) Basophils (%) (Auto) 0.4 % (0.0-2.0) Sodium Level 144 MMOL/L (136-145) Potassium Level 4.0 MMOL/L (3.5-5.1) Chloride Level 111 MMOL/L (98-107) H Carbon Dioxide Level 28 MMOL/L (21-32) Anion Gap 5 mmol/L (5-15) Blood Urea Nitrogen 8 mg/dL (7-18) Creatinine 0.9 MG/DL (0.55-1.30) Estimat Glomerular Filtration Rate > 60 mL/min (>60) Glucose Level 175 MG/DL (74-106) H Calcium Level 8.2 MG/DL (8.5-10.1) L Magnesium Level 1.8 MG/DL (1.8-2.4) Total Bilirubin 0.4 MG/DL (0.2-1.0) Aspartate Amino Transf (AST/SGOT) 27 U/L (15-37) Alanine Aminotransferase (ALT/SGPT) 16 U/L (12-78) Alkaline Phosphatase 59 U/L (46-116) Total Protein 6.4 G/DL (6.4-8.2) Albumin 2.2 G/DL (3.4-5.0) L Globulin 4.2 g/dL Albumin/Globulin Ratio 0.5 (1.0-2.7) L Intake and Output 01/17/20 01/18/20 19:00 07:00 Intake Total 1020.0 ml 830 ml Output Total 900 ml Balance 120.0 ml 830 ml Free Water 100 ml 200 ml IV Total 565.0 ml Tube Feeding 355 ml 630 ml Output Urine Total 900 ml # Bowel Movements 6 Assessment/Plan Status: stable, progressing Assessment/Plan Impression: acute hypoxic resp failure fever dysphagia hypotension possible early shock acute toxic encephalopathy UTI parkinson's disease dementia with behavior disturbance sinus bradycardia bedbound status senile debility anxiety VRE colonization hypernatremia hypokalemia PLAN: bedside swallow eval noted, failed today. consideration for PEG K repleted tim dc ed today IVF NGT TF keppra to IV ammonia 41 ABG noted PCo2 normal DC atenolol due to bradycardia IV abx f/u cx pulm/ID eval pain control aspiration precaution oxygen morphine prn pain IV FULL CODE. d/w amy alonzo over 35 min spent today. over 50% with counseling , coordinate of care , advance care planning d/w amy. BABATUNDE HARLEY MD INTERNAL MEDICINE [phone] Babatunde Harley MD Jan 18, 2020 23:54
[2020-01-19] VITALS: BP 135/70
[2020-01-19] MEDS: Metoclopramide 10mg/2ml Inj IVP SCH ×4 (00:23→19:06)
[2020-01-19 04:00] VITALS: BP 155/61
[2020-01-19] MEDS: D5 1/2NS 1,000 ML IV SCH ×2 (05:20→19:11)
[2020-01-19] MEDS: Piperacillin/Tazobactam 3.375 GM in NS 110 ML IVPB SCH ×3 (05:23→22:55)
--- NOTE | 2020-01-19 06:08 | NUR ---
NURSE HAND-OFF: Important Events on Shift: No important events Patient Status: Stable Diet: Osmolite 1.2 @ 55cc/hr Pending Orders: N/A Pending Results/Labs: CBC, CMP Pending MD notification: N/A Latest Vital Signs: Temperature 97.5 , Pulse 64 , B/P 155 /61 , Respiratory Rate 21 , O2 SAT 100 , Room Air, O2 Flow Rate 3.0 . Vital Sign Comment: N/A Latest Houser Fall Score: 70 Fall Risk: High Risk Safety Measures: Call light Within Reach, Bed Alarm Zone 2, Side Rails Side Rails x3, Bed position Low and Locked. Fall Precautions: Yellow Socks Yellow Gown Door Sign Patient Fall Education Addendum: 01/19/20 at 0729 by STEFANO NIETO RN Report given to MADDY Shelton
[2020-01-19] MEDS: Morphine Sulfate 2mg/ml Inj(IV/IM USE ONLY) IVP PRN (06:29)
[2020-01-19 06:38] LABS: BASOPHILS % (AUTO) 0.6 % (0.0-2.0); EOSINOPHILS % (AUTO) 1.2 % (0.0-3.0); HEMATOCRIT 36.8 % (37.0-47.0); HEMOGLOBIN 11.6 G/DL (12.0-16.0); LYMPHOCYTES % (AUTO) 25.3 % (20.0-45.0); MEAN CORPUSCULAR VOLUME 87 FL (80-99); MONOCYTES % (AUTO) 8.7 % (1.0-10.0); NEUTROPHILS % (AUTO) 64.2 % (45.0-75.0); PLATELET COUNT 203 K/UL (150-450); RED BLOOD COUNT 4.23 M/UL (4.20-5.40); RED CELL DISTRIBUTION WIDTH 14.1 % (11.6-14.8); WHITE BLOOD COUNT 9.5 K/UL (4.8-10.8)
[2020-01-19 07:06] LABS: ALANINE AMINOTRANSFERASE 15 U/L (12-78); ALBUMIN 2.4 G/DL (3.4-5.0); ALBUMIN/GLOBULIN RATIO 0.5 (1.0-2.7); ALKALINE PHOSPHATASE 59 U/L (46-116); ANION GAP 6 mmol/L (5-15); ASPARTATE AMINO TRANSFERASE 19 U/L (15-37); BILIRUBIN,TOTAL 0.4 MG/DL (0.2-1.0); BLOOD UREA NITROGEN 8 mg/dL (7-18); CALCIUM 8.5 MG/DL (8.5-10.1); CARBON DIOXIDE 30 MMOL/L (21-32); CHLORIDE 109 MMOL/L (98-107); CREATININE 0.8 MG/DL (0.55-1.30); POTASSIUM 3.7 MMOL/L (3.5-5.1); SODIUM 145 MMOL/L (136-145)
[2020-01-19 08:00] VITALS: BP 137/61
--- NOTE | 2020-01-19 08:00 | NUR ---
NURSE NOTES: Patient eyes closed,responds to touch,respirations unlabored.N/G tube to the left nares ,checked for placement by auscultation.No residual noted at this time.N /G tube feedings ongoing as ordered.HOB is elevated.IV fluids infusing as ordered.patient has pure on. wick noted clear yellow urine in collection container.Bed alarm on.
[2020-01-19] MEDS: Aspirin Baby 81mg ORAL SCH (09:18)
[2020-01-19] MEDS: Donepezil 10mg tab ORAL SCH (09:19)
[2020-01-19] MEDS: Docusate 100mg cap ORAL SCH ×2 (09:19→19:06)
[2020-01-19] MEDS: Levodopa/Carbidopa 25/100 tab ORAL SCH ×2 (09:19→19:06)
[2020-01-19] MEDS: Enoxaparin 40mg Inj SUBQ SCH (09:25)
[2020-01-19] MEDS: levETIRAcetam 500mg/NS100ml 100 ML IVPB SCH ×2 (09:29→20:17)
--- NOTE | 2020-01-19 09:37 | Pulmonology Progress Note ---
Subjective ROS Limited/Unobtainable: Yes Interval Events: None new Constitutional: Reports: fatigue; Denies: fever HEENT: Repors: no symptoms Respiratory: Reports: no symptoms Cardiovascular: Reports: no symptoms Gastrointestinal/Abdominal: Denies: nausea, vomiting, diarrhea Genitourinary: Reports: no symptoms Psychiatric: Denies: depression Skin: Denies: rash Musculoskeletal: Denies: pain Allergies: Coded Allergies: No Known Allergies (Unverified , 09/25/18) All Systems: reviewed and negative except above Objective Last 24 Hour Vital Signs Date Time Temp Pulse Resp B/P (MAP) Pulse Ox O2 Delivery O2 Flow Rate FiO2 01/19/20 08:16 97.5 01/19/20 04:00 97.5 64 21 155/61 (92) 100 01/19/20 00:00 97.8 84 22 135/70 (91) 94 01/18/20 23:57 84 22 135/70 94 01/18/20 23:27 76 20 149/74 96 01/18/20 21:00 Room Air 01/18/20 20:00 97.3 81 21 132/69 (90) 93 01/18/20 16:00 98.8 81 18 101/57 (72) 96 01/18/20 12:00 98.6 75 18 109/55 (73) 95 Intake and Output 01/18/20 01/19/20 19:00 07:00 Intake Total 750 ml Output Total 1200 ml Balance 750 ml -1200 ml Free Water 200 ml Tube Feeding 550 ml Output Urine Total 1200 ml General Appearance: no acute distress HEENT: normocephalic Respiratory: chest wall non-tender Cardiovascular: normal peripheral pulses Abdomen: normal bowel sounds Laboratory Tests 01/19/20 05:20: White Blood Count 9.5, Red Blood Count 4.23, Hemoglobin 11.6L, Hematocrit 36.8L , Mean Corpuscular Volume 87, Mean Corpuscular Hemoglobin 27.3, Mean Corpuscular Hemoglobin Concent 31.4L, Red Cell Distribution Width 14.1, Platelet Count 203, Mean Platelet Volume 8.7, Neutrophils (%) (Auto) 64.2, Lymphocytes (%) (Auto) 25.3, Monocytes (%) (Auto) 8.7, Eosinophils (%) (Auto) 1.2, Basophils (%) (Auto) 0.6, Sodium Level 145, Potassium Level 3.7, Chloride Level 109H, Carbon Dioxide Level 30, Anion Gap 6, Blood Urea Nitrogen 8, Creatinine 0.8, Estimat Glomerular Filtration Rate > 60, Glucose Level 198H, Calcium Level 8.5, Total Bilirubin 0.4, Aspartate Amino Transf (AST/SGOT) 19, Alanine Aminotransferase (ALT/SGPT) 15, Alkaline Phosphatase 59, Total Protein 6.8, Albumin 2.4L, Globulin 4.4, Albumin/Globulin Ratio 0.5L Current Medications Medications (Trade) Dose Ordered Sig/Mikey Route PRN Reason Start Time Stop Time Status Last Admin Dose Admin Acetaminophen (Tylenol) 650 mg Q4H PRN ORAL MILD/TEMP 01/13/20 02:30 02/12/20 02:29 01/16/20 16:55 Aspirin (ASA) 81 mg DAILY ORAL 01/13/20 09:00 02/27/20 08:59 01/19/20 09:18 Barium Sulfate (Varibar Honey) 250 ml NOW PRN RAD 01/18/20 15:15 01/21/20 15:14 Barium Sulfate (Varibar [place]) 240 ml NOW PRN MC RAD 01/18/20 15:15 01/21/20 15:14 Barium Sulfate (Varibar Pudding) 230 ml NOW PRN RAD 01/18/20 15:15 01/21/20 15:14 Barium Sulfate (Varibar Thin Liquid powder) 148 gm NOW PRN RAD 01/18/20 15:15 01/21/20 15:14 Carbidopa/Levodopa (Sinemet 25/100) 1 tab BID ORAL 01/13/20 09:00 02/12/20 08:59 01/19/20 09:19 Dextrose/Sodium Chloride 1,000 ml @ 75 mls/hr [id number] IV 01/16/20 09:45 02/15/20 09:44 01/19/20 05:20 Divalproex Sodium (Depakote Sprinkles) 500 mg BEDTIME NG 01/13/20 21:00 02/12/20 20:59 01/18/20 21:30 Docusate Sodium (Colace) 100 mg TWICE A DAY ORAL 01/13/20 09:00 02/12/20 08:59 01/19/20 09:19 Donepezil HCl (Aricept) 10 mg DAILY ORAL 01/13/20 09:00 02/12/20 08:59 01/19/20 09:19 Enoxaparin Sodium (Lovenox) 40 mg DAILY SUBQ 01/15/20 09:00 04/14/20 08:59 01/19/20 09:25 Gabapentin (Neurontin) 100 mg THREE TIMES A DAY ORAL 01/13/20 09:00 02/12/20 08:59 01/19/20 09:19 Levetiracetam 100 ml @ 400 mls/hr Q12HR IVPB 01/14/20 23:45 04/13/20 23:44 01/19/20 09:29 Lorazepam (Ativan 2mg/ml 1ml) 0.25 mg Q4H PRN IV For Anxiety 01/16/20 09:45 01/23/20 09:44 01/18/20 23:27 Lorazepam (Ativan) 0.5 mg Q4H PRN ORAL For Anxiety 01/13/20 02:30 01/20/20 02:29 01/16/20 16:54 Magnesium Hydroxide (Mom) 30 ml DAILY PRN ORAL Constipation 01/13/20 02:30 02/12/20 02:29 Metoclopramide HCl (Reglan) 5 mg Q6HR IVP 01/17/20 10:30 02/16/20 10:29 01/19/20 05:23 Mirtazapine (Remeron) 45 mg BEDTIME ORAL 01/13/20 21:00 04/12/20 20:59 01/18/20 21:29 Morphine Sulfate (Morphine Sulfate) 2 mg Q4H PRN IVP Severe Pain (Pain Scale 7-10) 01/15/20 17:30 01/22/20 13:29 01/19/20 06:29 Piperacillin Sod/ Tazobactam Sod 3.375 gm/Sodium Chloride 110 ml @ 27.5 mls/hr EVERY 8 HOURS IVPB 01/16/20 14:00 01/21/20 13:59 01/19/20 05:23 Sennosides (Senokot) 8.6 mg BEDTIME ORAL 01/13/20 21:00 02/12/20 20:59 01/18/20 21:29 Tramadol HCl (Ultram) 50 mg Q6H PRN ORAL Moderate Pain (Pain Scale 4-6) 01/13/20 02:30 01/20/20 02:29 01/13/20 08:50 Assessment/Plan Assessment/Plan IMPRESSION: 1. Possible aspiration pneumonia. Followup CXR shows small left pleural effusion 2. UTI. 3. Dementia. 4. Parkinson's. DISCUSSION: Continue abx for UTI and possible aspiration pneumonia Continue oxygen as needed and pulmonary hygiene. I will follow as immigration associate. Saturating well on low flow O2 Pete Bell M.D. Pete Bell MD Jan 19, 2020 09:37
[2020-01-19 12:00] VITALS: BP 108/48
--- NOTE | 2020-01-19 12:18 | General Progress Note ---
Assessment/Plan Problem List: (1) Diabetes mellitus ICD Codes: E11.9 - Type 2 diabetes mellitus without complications SNOMED: 47852195 (2) HTN (hypertension) ICD Codes: I10 - Essential (primary) hypertension SNOMED: 53097061 (3) Parkinson disease ICD Codes: G20 - Parkinson's disease SNOMED: 71163198 (4) Intractable nausea and vomiting ICD Codes: R11.2 - Nausea with vomiting, unspecified SNOMED: 931631245 (5) Urinary tract infection ICD Codes: N39.0 - Urinary tract infection, site not specified SNOMED: 13710696 Status: stable, progressing Assessment/Plan: dysphagia s/p NGT placement TF on reglan need PEG Subjective ROS Limited/Unobtainable: No Allergies: Coded Allergies: No Known Allergies (Unverified , 09/25/18) Objective Last 24 Hour Vital Signs Date Time Temp Pulse Resp B/P (MAP) Pulse Ox O2 Delivery O2 Flow Rate FiO2 01/19/20 09:42 Room Air 01/19/20 08:16 97.5 01/19/20 08:00 98.2 77 21 137/61 (86) 97 01/19/20 04:00 97.5 64 21 155/61 (92) 100 01/19/20 00:00 97.8 84 22 135/70 (91) 94 01/18/20 23:57 84 22 135/70 94 01/18/20 23:27 76 20 149/74 96 01/18/20 21:00 Room Air 01/18/20 20:00 97.3 81 21 132/69 (90) 93 01/18/20 16:00 98.8 81 18 101/57 (72) 96 Intake and Output 01/18/20 01/19/20 19:00 07:00 Intake Total 750 ml Output Total 1200 ml Balance 750 ml -1200 ml Free Water 200 ml Tube Feeding 550 ml Output Urine Total 1200 ml Laboratory Tests 01/19/20 05:20: White Blood Count 9.5, Red Blood Count 4.23, Hemoglobin 11.6L, Hematocrit 36.8L , Mean Corpuscular Volume 87, Mean Corpuscular Hemoglobin 27.3, Mean Corpuscular Hemoglobin Concent 31.4L, Red Cell Distribution Width 14.1, Platelet Count 203, Mean Platelet Volume 8.7, Neutrophils (%) (Auto) 64.2, Lymphocytes (%) (Auto) 25.3, Monocytes (%) (Auto) 8.7, Eosinophils (%) (Auto) 1.2, Basophils (%) (Auto) 0.6, Sodium Level 145, Potassium Level 3.7, Chloride Level 109H, Carbon Dioxide Level 30, Anion Gap 6, Blood Urea Nitrogen 8, Creatinine 0.8, Estimat Glomerular Filtration Rate > 60, Glucose Level 198H, Calcium Level 8.5, Total Bilirubin 0.4, Aspartate Amino Transf (AST/SGOT) 19, Alanine Aminotransferase (ALT/SGPT) 15, Alkaline Phosphatase 59, Total Protein 6.8, Albumin 2.4L, Globulin 4.4, Albumin/Globulin Ratio 0.5L Height (Feet): 5 Height (Inches): 0.00 Weight (Pounds): 130 General Appearance: no apparent distress EENT: normal ENT inspection Neck: supple Cardiovascular: normal rate Respiratory/Chest: decreased breath sounds Abdomen: normal bowel sounds, non tender, soft Extremities: non-tender Willem Rolle MD Jan 19, 2020 12:18
--- NOTE | 2020-01-19 12:32 | NUR ---
DISCHARGE PLANNIN01/19/20 SI: DYSPHAGIA~ FAILED SWALLOW EVAL IS: NG TUBE PLAN FOR PEG PLACEMENT " MED/SURG STATUS 4 EAST
[2020-01-19] MEDS ORDERED: D5 1/2NS 1000ml IV ONE (13:15)
[2020-01-19 16:00] VITALS: BP 142/76
--- NOTE | 2020-01-19 18:00 | NUR ---
NURSE NOTES: Patient continues tolerating N/G tube feedings,abdomen soft.HOB is elevated.Bed alarm on.
--- NOTE | 2020-01-19 19:30 | NUR ---
NURSE HAND-OFF: Zoey CASTAÑEDA Important Events on Shift:[] Patient Status: [] Diet: [ N/G tube feedings] Pending Orders: []Patient schedule for PEG placement 01/19 Pending Results/Labs:[] Pending MD notification:[] Latest Vital Signs: Temperature 99.1 , Pulse 79 , B/P 142 /76 , Respiratory Rate 18 , O2 SAT 97 , Room Air, O2 Flow Rate 3.0 . Vital Sign Comment: [] Latest Houser Fall Score: 70 Fall Risk: High Risk Safety Measures: Call light Within Reach, Bed Alarm Zone 2, Side Rails Side Rails x3, Bed position Low and Locked. Fall Precautions: y Yellow Socks y Yellow Gown y Door Sign Patient Fall Education Report given to [].
--- NOTE | 2020-01-19 19:40 | NUR ---
NURSE NOTES: Patient is in bed, awake; unable to make needs known. No signs of distress or SOB. NG-tube in place and running feeding as ordered. HOB elevated. Side rails padded for seizure precaution. IV intact and patent. Bed locked and in lowest position. Bed alarm on. Will continue plan of care.
[2020-01-19 20:00] VITALS: BP 159/81
[2020-01-19] MEDS: Sennosides 8.6mg tab ORAL SCH (21:43)
[2020-01-19] MEDS: Depakote 125mg Sprinkles NG SCH (21:43)
--- NOTE | 2020-01-19 22:12 | Internal Med Progress Note ---
Subjective Date of Service: Jan 19, 2020 Physician Name Babatunde Harley Attending Physician Babatunde Harley MD Current Medications Medications (Trade) Dose Ordered Sig/Mikey Route PRN Reason Start Time Stop Time Status Last Admin Dose Admin Acetaminophen (Tylenol) 650 mg Q4H PRN ORAL MILD/TEMP 01/13/20 02:30 02/12/20 02:29 01/16/20 16:55 Aspirin (ASA) 81 mg DAILY ORAL 01/13/20 09:00 02/27/20 08:59 01/19/20 09:18 Barium Sulfate (Varibar Honey) 250 ml NOW PRN MC RAD 01/18/20 15:15 01/21/20 15:14 Barium Sulfate (Varibar [place]) 240 ml NOW PRN MC RAD 01/18/20 15:15 01/21/20 15:14 Barium Sulfate (Varibar Pudding) 230 ml NOW PRN MC RAD 01/18/20 15:15 01/21/20 15:14 Barium Sulfate (Varibar Thin Liquid powder) 148 gm NOW PRN MC RAD 01/18/20 15:15 01/21/20 15:14 Carbidopa/Levodopa (Sinemet 25/100) 1 tab BID ORAL 01/13/20 09:00 02/12/20 08:59 01/19/20 19:06 Dextrose/Sodium Chloride 1,000 ml @ 75 mls/hr [id number] IV 01/16/20 09:45 02/15/20 09:44 01/19/20 19:11 Divalproex Sodium (Depakote Sprinkles) 500 mg BEDTIME NG 01/13/20 21:00 02/12/20 20:59 01/19/20 21:43 Docusate Sodium (Colace) 100 mg TWICE A DAY ORAL 01/13/20 09:00 02/12/20 08:59 01/19/20 19:06 Donepezil HCl (Aricept) 10 mg DAILY ORAL 01/13/20 09:00 02/12/20 08:59 01/19/20 09:19 Enoxaparin Sodium (Lovenox) 40 mg DAILY SUBQ 01/15/20 09:00 04/14/20 08:59 01/19/20 09:25 Gabapentin (Neurontin) 100 mg THREE TIMES A DAY ORAL 01/13/20 09:00 02/12/20 08:59 01/19/20 19:06 Levetiracetam 100 ml @ 400 mls/hr Q12HR IVPB 01/14/20 23:45 04/13/20 23:44 01/19/20 09:29 Lorazepam (Ativan 2mg/ml 1ml) 0.25 mg Q4H PRN IV For Anxiety 01/16/20 09:45 01/23/20 09:44 01/18/20 23:27 Lorazepam (Ativan) 0.5 mg Q4H PRN ORAL For Anxiety 01/13/20 02:30 01/20/20 02:29 01/16/20 16:54 Magnesium Hydroxide (Mom) 30 ml DAILY PRN ORAL Constipation 01/13/20 02:30 02/12/20 02:29 Metoclopramide HCl (Reglan) 5 mg Q6HR IVP 01/17/20 10:30 02/16/20 10:29 01/19/20 19:06 Mirtazapine (Remeron) 45 mg BEDTIME ORAL 01/13/20 21:00 04/12/20 20:59 01/19/20 21:43 Morphine Sulfate (Morphine Sulfate) 2 mg Q4H PRN IVP Severe Pain (Pain Scale 7-10) 01/15/20 17:30 01/22/20 13:29 01/19/20 06:29 Piperacillin Sod/ Tazobactam Sod 3.375 gm/Sodium Chloride 110 ml @ 27.5 mls/hr EVERY 8 HOURS IVPB 01/16/20 14:00 01/21/20 13:59 01/19/20 13:31 Sennosides (Senokot) 8.6 mg BEDTIME ORAL 01/13/20 21:00 02/12/20 20:59 01/19/20 21:43 Tramadol HCl (Ultram) 50 mg Q6H PRN ORAL Moderate Pain (Pain Scale 4-6) 01/13/20 02:30 01/20/20 02:29 01/13/20 08:50 Allergies: Coded Allergies: No Known Allergies (Unverified , 09/25/18) ROS Limited/Unobtainable: Yes Constitutional: Reports: no symptoms All Systems: reviewed and negative except above Subjective d/w son will proceed with PEG. GI aware able to speak today NGT feeding in progress tim dced on purewick failed ST eval high risk of aspiration Objective Last Vital Signs Date Time Temp Pulse Resp B/P (MAP) Pulse Ox O2 Delivery O2 Flow Rate FiO2 01/19/20 16:00 99.1 79 18 142/76 (98) 97 01/19/20 09:42 Room Air 01/18/20 09:00 3.0 01/18/20 07:00 32 General Appearance: no apparent distress Neck: supple Cardiovascular: normal rate, regular rhythm Respiratory/Chest: lungs clear Abdomen: normal bowel sounds, non tender, soft, no organomegaly Genitourinary/Rectal: normal genital exam Extremities: other - Right knee flexion contracture, Left foot drop Edema: trace edema Neurologic: responsive, disoriented Skin: warm/dry Laboratory Tests Test 01/19/20 05:20 White Blood Count 9.5 K/UL (4.8-10.8) Red Blood Count 4.23 M/UL (4.20-5.40) Hemoglobin 11.6 G/DL (12.0-16.0) L Hematocrit 36.8 % (37.0-47.0) L Mean Corpuscular Volume 87 FL (80-99) Mean Corpuscular Hemoglobin 27.3 PG (27.0-31.0) Mean Corpuscular Hemoglobin Concent 31.4 G/DL (32.0-36.0) L Red Cell Distribution Width 14.1 % (11.6-14.8) Platelet Count 203 K/UL (150-450) Mean Platelet Volume 8.7 FL (6.5-10.1) Neutrophils (%) (Auto) 64.2 % (45.0-75.0) Lymphocytes (%) (Auto) 25.3 % (20.0-45.0) Monocytes (%) (Auto) 8.7 % (1.0-10.0) Eosinophils (%) (Auto) 1.2 % (0.0-3.0) Basophils (%) (Auto) 0.6 % (0.0-2.0) Sodium Level 145 MMOL/L (136-145) Potassium Level 3.7 MMOL/L (3.5-5.1) Chloride Level 109 MMOL/L (98-107) H Carbon Dioxide Level 30 MMOL/L (21-32) Anion Gap 6 mmol/L (5-15) Blood Urea Nitrogen 8 mg/dL (7-18) Creatinine 0.8 MG/DL (0.55-1.30) Estimat Glomerular Filtration Rate > 60 mL/min (>60) Glucose Level 198 MG/DL (74-106) H Calcium Level 8.5 MG/DL (8.5-10.1) Total Bilirubin 0.4 MG/DL (0.2-1.0) Aspartate Amino Transf (AST/SGOT) 19 U/L (15-37) Alanine Aminotransferase (ALT/SGPT) 15 U/L (12-78) Alkaline Phosphatase 59 U/L (46-116) Total Protein 6.8 G/DL (6.4-8.2) Albumin 2.4 G/DL (3.4-5.0) L Globulin 4.4 g/dL Albumin/Globulin Ratio 0.5 (1.0-2.7) L Intake and Output 01/18/20 01/19/20 19:00 07:00 Intake Total 750 ml Output Total 1200 ml Balance 750 ml -1200 ml Free Water 200 ml Tube Feeding 550 ml Output Urine Total 1200 ml Assessment/Plan Status: stable, progressing Assessment/Plan Impression: acute hypoxic resp failure fever dysphagia hypotension possible early shock acute toxic encephalopathy UTI parkinson's disease dementia with behavior disturbance sinus bradycardia bedbound status senile debility anxiety VRE colonization hypernatremia hypokalemia PLAN: bedside swallow eval noted, failed toda. son agreed with PEG . GI aware to schedule K repleted ff tim IVF NGT TF keppra to IV ammonia 41 ABG noted PCo2 normal DC atenolol due to bradycardia IV abx pain control aspiration precaution oxygen morphine prn pain IV FULL CODE. d/w amy alonzo over 35 min spent today. over 50% with counseling , coordinate of care , advance care planning d/w son. BABATUNDE HARLEY MD INTERNAL MEDICINE [phone] Babatunde Harley MD Jan 19, 2020 22:12
--- NOTE | 2020-01-19 22:30 | NUR ---
NURSE NOTES: Received telephone consent from son, Gwen Kingston, for EDG/PEG placement. Witnessed by MADDY May.
[2020-01-20] VITALS (11 sets, daily range): BP systolic 121–151; BP diastolic 60–90
[2020-01-20] MEDS: Metoclopramide 10mg/2ml Inj IVP SCH ×4 (00:28→18:24)
[2020-01-20] MEDS: Piperacillin/Tazobactam 3.375 GM in NS 110 ML IVPB SCH ×2 (05:29→13:46)
[2020-01-20] MEDS: D5 1/2NS 1,000 ML IV SCH ×2 (05:33→20:12)
--- NOTE | 2020-01-20 06:14 | NUR ---
NURSE HAND-OFF: Important Events on Shift: NPO for EDG/PEG placement on 01/19 Patient Status: Stable Diet: Osmolite 1.2/NPO @ midnight Pending Orders: EDG/PEG placement Pending Results/Labs: No labs Pending notification: N/A Latest Vital Signs: Temperature 98.2 , Pulse 85 , B/P 151 /71 , Respiratory Rate 18 , O2 SAT 97 , Room Air, O2 Flow Rate 3.0 . Vital Sign Comment: Latest Houser Fall Score: 70 Fall Risk: High Risk Safety Measures: Call light Within Reach, Bed Alarm Zone 2, Side Rails Side Rails x3, Bed position Low and Locked. Fall Precautions: Yellow Socks Yellow Gown Door Sign Patient Fall Education Addendum: 01/20/20 at 0742 by STEFANO NIETO RN Report given to MADDY Hilton
[2020-01-20] MEDS: LORazepam Inj 2mg/ml 1ml IV PRN (06:59)
--- NOTE | 2020-01-20 07:01 | Anethesia Preoperative Eval ---
Anesthesia Pre-op PMH/ROS General Date of Evaluation: Jan 20, 2020 Anesthesiologist: Marlon ASA Score: ASA 4 Mallampati Score Class I : Soft palate, uvula, fauces, pillars visible Class II: Soft palate, uvula, fauces visible Class III: Soft palate, base of uvula visible Class IV: Only hard plate visible Mallampati Classification: Class II Surgeon: Sariah Diagnosis: Dysphagia Surgical Procedure: PEG Anesthesia History: none Family History: no anesthesia problems Allergies: Coded Allergies: No Known Allergies (Unverified , 09/25/18) Medications: see eMAR Patient NPO?: Yes NPO Date: Jan 20, 2020 NPO Time: 00:00 Past Medical History Cardiovascular: Reports: HTN, CAD, other - CHF; Denies: RI, valve dz, arrhythmia Pulmonary: Denies: asthma, COPD, ROCÍO, other Gastrointestinal/Genitourinary: Denies: GERD, CRI, ESRD, other Neurologic/Psychiatric: Reports: dementia, depression/anxiety, other - parkinsons; Denies: CVA, TIA Endocrine: Reports: DM; Denies: hypothyroidism, steroids, other HEENT: Reports: other - legally blind; Denies: cataract (L), cataract (R), glaucoma, KLAMATH (L), KLAMATH (R) Hematology/Immune: Denies: anemia, DVT, bleeding disorder, other Musculoskeletal/Integumentary: Reports: OA; Denies: RA, DJD, DDD, edema, other PSxH Narrative: Unable to assess Anesthesia Pre-op Phys. Exam Physician Exam Last Vital Signs Date Time Temp Pulse Resp B/P (MAP) Pulse Ox O2 Delivery O2 Flow Rate FiO2 01/20/20 04:00 98.2 85 18 151/71 (97) 97 01/19/20 21:00 Room Air 01/18/20 09:00 3.0 01/18/20 07:00 32 Constitutional: NAD Cardiovascular: RRR Respiratory: other - mild crackles bilaterally Airway Exam Mallampati Score: Class II MO: limited ROM: limited Anesthesia Pre-op A/P Labs see chart Studies Pre-op Studies: EKG - ST Risk Assessment & Plan Assessment: ASA IV Plan: MAC Status Change Before Surgery: No Pre-Antibiotics Drug: N/A Maya Mason MD Jan 20, 2020 07:01
--- NOTE | 2020-01-20 07:12 | NUR ---
NURSE NOTES: Received report from MADDY Greer. Patient received lying in hospital bed, with HOB elevated. Pt is responsive to name calling, moans, able to respond with some words, but does not open eyes as patient is legally blind. Pt is on RA with no s/s of respiratory distress. NGT Dobhoff in place running Osmolite 1.2 at 55 ml/hr. Pt is incontinent x2, with purewick in place. LBM on 01/19/20. Skin intact. pIV to R FA 22g running D5 1/2 NS at 75 ml/hr. L FA 22 g pIV asymptomatic and intact. Planned for EGD and PEG placement today. Bed in lowest position, locked, with bed alarm on. Will continue POC.
--- NOTE | 2020-01-20 07:30 | NUR ---
NURSE NOTES: COVID-19 swab rapid test collected and sent to lab for procedure clearance today.
[2020-01-20] MEDS ORDERED: Lidocaine 1% MPF 10mg/ml 5ml ONE (08:30)
[2020-01-20] MEDS ORDERED: NS Irrig 1000ml ONE (08:30)
--- NOTE | 2020-01-20 08:36 | Pre-Procedure Note/Attestation ---
Pre-Procedure Note/Attestation Complete Prior to Procedure Planned Procedure: not applicable Procedure Narrative: egd/peg Indications for Procedure Pre-Operative Diagnosis: dysphagia Attestation I attest that I discussed the nature of the procedure; its benefits; risks and complications; and alternatives (and the risks and benefits of such alternatives ), prior to the procedure, with the patient (or the patient's legal public utilities sales representative). I attest that, if there was a reasonable possibility of needing a blood transfusion, the patient (or the patient's legal public utilities sales representative) was given the [facility] standardized written summary, pursuant to the Kevin Prachi Blood Safety Act ([place] Health and Safety Code # 1645, as amended). I attest that I re-evaluated the patient just prior to the surgery and that there has been no change in the patient's H&P, except as documented below: Willem Rolle MD Jan 20, 2020 08:36
--- NOTE | 2020-01-20 08:51 | Endoscopy Procedure Note ---
Endoscopy Procedure Note General Indication for Procedure: dysphagia Procedures Performed: EGD, PEG Operative Findings/Diagnosis: same Specimen: none Pt Tolerated Procedure Well: Yes Estimated Blood Loss: none Anesthesia Anesthesiologist: gilles Anesthesia: MAC Inserted Devices Implant(s) used?: No GI Core Measures 50 yrs or older w/o bx or poly: Not Applicable 10yrs. F/U recommended: Not Applicable Willem Rolle MD Jan 20, 2020 08:51
[2020-01-20] MEDS: Aspirin Baby 81mg ORAL SCH (09:00)
[2020-01-20] MEDS: Docusate 100mg cap ORAL SCH ×2 (09:00→18:00)
[2020-01-20] MEDS: Levodopa/Carbidopa 25/100 tab ORAL SCH ×2 (09:00→18:24)
[2020-01-20] MEDS: levETIRAcetam 500mg/NS100ml 100 ML IVPB SCH ×2 (09:00→20:12)
[2020-01-20] MEDS: Donepezil 10mg tab ORAL SCH (09:00)
[2020-01-20] MEDS: Enoxaparin 40mg Inj SUBQ SCH (09:00)
--- NOTE | 2020-01-20 09:02 | Immediate Post-Op Evaluation ---
Immediate Post-Op Evalulation Immediate Post-Op Evalulation Procedure: PEG Date of Evaluation: Jan 20, 2020 Time of Evaluation: 19:04 IV Fluids: 150 Blood Products: 0 Estimated Blood Loss: min Urinary Output: 0 Blood Pressure Systolic: 121 Blood Pressure Diastolic: 66 Pulse Rate: 79 Respiratory Rate: 18 O2 Sat by Pulse Oximetry: 98 Temperature (Fahrenheit): 97.4 Pain Score (1-10): 0 Nausea: No Vomiting: No Complications 0 Patient Status: awake, reacts, patent, none Hydration Status: adequate Drug: Zosyn 3.375 Given Within 1 Hr of Incision: Yes Maya Mason MD Jan 20, 2020 09:02
--- NOTE | 2020-01-20 09:14 | Procedure Note ---
DATE OF PROCEDURE: 01/20/2020 SURGEON: Willem Rolle MD. PROCEDURE: Upper endoscopy with PEG placement. ANESTHESIA: Per Dr. Mason. INSTRUMENT: Olympus adult flexible upper endoscope. INDICATIONS FOR PROCEDURE: Dysphagia. REASON FOR PROCEDURE: The procedure, risks, benefits, and possible consequences, including hemorrhage, aspiration, perforation and infection, and alternative treatments, were explained to the patient/legal guardian by Dr. Willem Rolle and the patient/legal guardian understood and accepted these risks. DESCRIPTION OF PROCEDURE: After informed consent was obtained and the patient was adequately sedated, the Olympus upper endoscope was advanced from the mouth into the second portion of the duodenum and retroflexion was performed in the stomach. The patient had evidence of diffuse gastritis. Then, under endoscopic guidance, under sterile condition, a 20-E[place]ian pull type of G-tube was successfully placed in the epigastric area. The distance from the tip of the tube to skin was about 3 cm in size. The patient tolerated the procedure very well without any complication. SUMMARY OF FINDINGS: 1. Gastritis. 2. Status post successful PEG placement. RECOMMENDATIONS: 1. Abdominal binder. 2. Elevate the head of the bed at all times. 3. G-tube flush. 4. G-tube care. 5. Start tube feeding later today. I want to thank, Dr. Barrera, for this kind referral. Willem Rolle M.D. DR: Joce JOB#: [id number] CC: Raymundo Barrera MD
--- NOTE | 2020-01-20 09:24 | NUR ---
RD ASSESSMENT & RECOMMENDATIONS SEE CARE ACTIVITY FOR COMPLETE ASSESSMENT DAILY ESTIMATED NEEDS: Needs based on pulmonary , cardiac 52.7kg 25-30 kcals/kg 5236-1924 total kcals 1-1.5 g protein/kg 53-79 g total protein 25-30 mL/kg 9936-3712 total fluid mLs NUTRITION DIAGNOSIS: * Swallowing difficulty R/T dysphagia as evidenced by admitted w/ possible aspiration, failed swallow eval, now s/p PEG placement. CURRENT TF:Now orders for Glucerna 1.2 @55ml/hr ENTERAL NUTRITION RECOMMENDATIONS: Maintain GLUCERNA 1.2 GOAL OF 55ML/HR X24 HRS to provide 1320ml, 1584 kcal, 79g pro, 1063ml free H2O - Maintain Glucerna 1.2, advance as tolerated to goal of 55mlhr x24 hrs to meet est needs - Flush per MD. HOB over 30 degrees ADDITIONAL RECOMMENDATIONS: * Calibrated bedscale wt for accurate CBW -> per SNF record: HT=60" IF=132FSW * TF recs as above * Lytes daily w. TF * Rec NISS, for BG control
--- NOTE | 2020-01-20 09:26 | NUR ---
NURSE NOTES: Received patient report from MADDY Chance. VSS stable T 97.9 P 75 R 18 BP 150/83 satting at 99% on RA. New orders received from Dr. Rolle. Will carry out.
--- NOTE | 2020-01-20 11:16 | Pulmonology Progress Note ---
Subjective ROS Limited/Unobtainable: Yes Interval Events: None new Constitutional: Reports: fatigue; Denies: fever HEENT: Repors: no symptoms Respiratory: Reports: no symptoms Cardiovascular: Reports: no symptoms Gastrointestinal/Abdominal: Denies: nausea, vomiting, diarrhea Genitourinary: Reports: no symptoms Psychiatric: Denies: depression Skin: Denies: rash Musculoskeletal: Denies: pain Allergies: Coded Allergies: No Known Allergies (Unverified , 09/25/18) All Systems: reviewed and negative except above Objective Last 24 Hour Vital Signs Date Time Temp Pulse Resp B/P (MAP) Pulse Ox O2 Delivery O2 Flow Rate FiO2 01/20/20 09:25 97.9 72 23 137/60 99 Nasal Cannula 3 01/20/20 09:19 72 23 142/63 99 Nasal Cannula 3 01/20/20 09:09 73 15 128/66 99 Nasal Cannula 3 01/20/20 09:04 74 17 124/64 99 Nasal Cannula 3 01/20/20 09:02 79 18 98 01/20/20 08:59 97.4 76 27 121/66 98 Nasal Cannula 3 01/20/20 08:00 98.1 83 18 139/69 (92) 99 01/20/20 07:29 90 19 144/74 96 01/20/20 06:59 85 18 151/71 97 01/20/20 04:00 98.2 85 18 151/71 (97) 97 01/20/20 00:00 98.2 77 20 148/90 (109) 96 01/19/20 21:00 Room Air 01/19/20 20:00 98.1 79 18 159/81 (107) 95 01/19/20 16:00 99.1 79 18 142/76 (98) 97 01/19/20 12:00 97.9 71 21 108/48 (68) 97 Intake and Output 01/19/20 01/20/20 19:00 07:00 Intake Total 1895.0 ml 320 ml Output Total 400 ml 1000 ml Balance 1495.0 ml -680 ml Free Water 200 ml 100 ml IV Total 1035.0 ml Tube Feeding 660 ml 220 ml Output Urine Total 400 ml 1000 ml # Voids 2 1 # Bowel Movements 1 General Appearance: no acute distress HEENT: normocephalic Respiratory: chest wall non-tender Cardiovascular: normal peripheral pulses Abdomen: normal bowel sounds Microbiology Date/Time Source Procedure Growth Status 01/20/20 07:30 Nasopharynx SARS-CoV-2 RdRp Gene Assay - Final Complete Current Medications Medications (Trade) Dose Ordered Sig/Mikey Route PRN Reason Start Time Stop Time Status Last Admin Dose Admin Acetaminophen (Tylenol) 650 mg Q4H PRN ORAL MILD/TEMP 01/13/20 02:30 02/12/20 02:29 01/16/20 16:55 Aspirin (ASA) 81 mg DAILY ORAL 01/13/20 09:00 02/27/20 08:59 01/19/20 09:18 Barium Sulfate (Varibar Honey) 250 ml NOW PRN MC RAD 01/18/20 15:15 01/21/20 15:14 Barium Sulfate (Varibar [place]) 240 ml NOW PRN MC RAD 01/18/20 15:15 01/21/20 15:14 Barium Sulfate (Varibar Pudding) 230 ml NOW PRN MC RAD 01/18/20 15:15 01/21/20 15:14 Barium Sulfate (Varibar Thin Liquid powder) 148 gm NOW PRN MC RAD 01/18/20 15:15 01/21/20 15:14 Carbidopa/Levodopa (Sinemet 25/100) 1 tab BID ORAL 01/13/20 09:00 02/12/20 08:59 01/19/20 19:06 Dextrose/Sodium Chloride 1,000 ml @ 75 mls/hr [id number] IV 01/16/20 09:45 02/15/20 09:44 01/20/20 05:33 Divalproex Sodium (Depakote Sprinkles) 500 mg BEDTIME NG 01/13/20 21:00 02/12/20 20:59 01/19/20 21:43 Docusate Sodium (Colace) 100 mg TWICE A DAY ORAL 01/13/20 09:00 02/12/20 08:59 01/19/20 19:06 Donepezil HCl (Aricept) 10 mg DAILY ORAL 01/13/20 09:00 02/12/20 08:59 01/19/20 09:19 Enoxaparin Sodium (Lovenox) 40 mg DAILY SUBQ 01/15/20 09:00 04/14/20 08:59 01/19/20 09:25 Gabapentin (Neurontin) 100 mg THREE TIMES A DAY ORAL 01/13/20 09:00 02/12/20 08:59 01/19/20 19:06 Levetiracetam 100 ml @ 400 mls/hr Q12HR IVPB 01/14/20 23:45 04/13/20 23:44 01/19/20 20:17 Lorazepam (Ativan 2mg/ml 1ml) 0.25 mg Q4H PRN IV For Anxiety 01/16/20 09:45 01/23/20 09:44 01/20/20 06:59 Magnesium Hydroxide (Mom) 30 ml DAILY PRN ORAL Constipation 01/13/20 02:30 02/12/20 02:29 Metoclopramide HCl (Reglan) 5 mg Q6HR IVP 01/17/20 10:30 02/16/20 10:29 01/20/20 05:29 Mirtazapine (Remeron) 45 mg BEDTIME ORAL 01/13/20 21:00 04/12/20 20:59 01/19/20 21:43 Morphine Sulfate (Morphine Sulfate) 2 mg Q4H PRN IVP Severe Pain (Pain Scale 7-10) 01/15/20 17:30 01/22/20 13:29 01/19/20 06:29 Piperacillin Sod/ Tazobactam Sod 3.375 gm/Sodium Chloride 110 ml @ 27.5 mls/hr EVERY 8 HOURS IVPB 01/16/20 14:00 01/21/20 13:59 01/20/20 05:29 Sennosides (Senokot) 8.6 mg BEDTIME ORAL 01/13/20 21:00 02/12/20 20:59 01/19/20 21:43 Assessment/Plan Assessment/Plan IMPRESSION: 1. Possible aspiration pneumonia. Followup CXR shows small left pleural effusion 2. UTI. 3. Dementia. 4. Parkinson's. DISCUSSION: Continue abx for UTI and possible aspiration pneumonia Continue oxygen as needed and pulmonary hygiene. 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 Saturating well on low flow O2 NGT in place Ilene Becerra Omar Troy MD Jan 20, 2020 11:16
--- NOTE | 2020-01-20 13:43 | NUR ---
ST NOTE SWALLOW STATUS Patient being seen for dysphagia tx and management. Continues to be NPO, has PEG now. DELI DEPARTMENT MANAGER attempted to see Patient at bedside, Patient busy receiving nursing care, therefore, not seen today for dysphagia tx. DELI DEPARTMENT MANAGER plans to continue to f/u with Patient next therapeutic day for ongoing dysphagia tx with fdc goal for safety with oral gratification for quality of life and oral comfort. DELI DEPARTMENT MANAGER [phone]
--- NOTE | 2020-01-20 14:52 | Infectious Diseases Prog Note ---
Assessment/Plan Assessment/Plan ASSESSMENT AND PLAN: 1. Pseudomonas uti, aspiration pna/hcap, vre colonization, mrsa screen negative - zosyn - day # 8 - will discontinue - monitor labs and chest x-ray - clinically stable - chest x-ray stable 2. Diabetes mellitus. 3. Hypertension. 4. Blood sugar and blood pressure treatment per primary care team for diabetes and hypertension. 5. Parkinson's. 6. Dementia. 7. Dysphagia. 8. Aspiration risk. 9. Weakness. 10. Continue treatment per primary consultants. 11. No known drug allergies. 12. Social history is negative. 13. Family history is noncontributory. 14. MAR was noted. 15. Case was discussed with RN. 16. Continue treatment per primary consultants. 17. Orders were noted and entered. 18. Skin care protocol. Subjective Constitutional: Reports: fatigue; Denies: fever HEENT: Denies: congestion Respiratory: Denies: shortness of breath Cardiovascular: Denies: chest pain Gastrointestinal/Abdominal: Denies: nausea, vomiting Genitourinary: Reports: other - no tim Neurologic: Denies: headache Psychiatric: Denies: depression Skin: Denies: rash Hematologic: Denies: bleeding Musculoskeletal: Denies: pain Allergies: Coded Allergies: No Known Allergies (Unverified , 09/25/18) Objective Last 24 Hour Vital Signs Date Time Temp Pulse Resp B/P (MAP) Pulse Ox O2 Delivery O2 Flow Rate FiO2 01/20/20 12:00 97.6 88 18 141/82 (101) 98 01/20/20 09:25 97.9 72 23 137/60 99 Nasal Cannula 3 01/20/20 09:19 72 23 142/63 99 Nasal Cannula 3 01/20/20 09:09 73 15 128/66 99 Nasal Cannula 3 01/20/20 09:04 74 17 124/64 99 Nasal Cannula 3 01/20/20 09:02 79 18 98 01/20/20 09:00 Room Air 01/20/20 08:59 97.4 76 27 121/66 98 Nasal Cannula 3 01/20/20 08:00 98.1 83 18 139/69 (92) 99 01/20/20 07:29 90 19 144/74 96 01/20/20 06:59 85 18 151/71 97 01/20/20 04:00 98.2 85 18 151/71 (97) 97 9/11/20 00:00 98.2 77 20 148/90 (109) 96 01/19/20 21:00 Room Air 01/19/20 20:00 98.1 79 18 159/81 (107) 95 01/19/20 16:00 99.1 79 18 142/76 (98) 97 Height (Feet): 5 Height (Inches): 5.00 Weight (Pounds): 123 General Appearance: no acute distress HEENT: normocephalic, atraumatic, anicteric Respiratory/Chest: lungs clear, normal breath sounds, no accessory muscle use Cardiovascular: normal rate, regular rhythm, no gallop/murmur, no JVD Abdomen: normal bowel sounds, soft, non tender, no organomegaly, non distended Genitourinary: other - no tim Extremities: no cyanosis Skin: no rash Neurologic/Psychiatric: bi report developer II-XII grossly normal, alert, responsive Lymphatic: no neck adenopathy Musculoskeletal: no effusion Chest x-ray - 01/16/20 - FINDINGS/IMPRESSION: Patchy airspace opacity within the right midlung field. Small bilateral pleural effusions, left greater than right. Overall, the degree of pleural effusion on the left has improved. No pneumothorax. Cardiomegaly. Calcified aorta. Chest x-ray - 01/18/20 - Procedure: XRAY Chest 1v Indication: Shortness of Technique: One view of the chest Comparison: 01/16/2020 Findings: Weighted Dobbhoff type feeding tube is coiled in the gastric fundus. There is slight blunting of left costophrenic sulcus again demonstrated, may reflect pleural fluid versus thickening. The remainder the lungs and pleural spaces are clear. The heart size is normal. There are surgical clips in the right axilla Impression: Left sided pleural effusion versus pleural thickening, unchanged over 2 days. No acute process otherwise Other findings as noted Microbiology Date/Time Source Procedure Growth Status 01/12/20 22:30 Blood Blood Culture - Final NO GROWTH AFTER 5 DAYS Complete 01/20/20 07:30 Nasopharynx SARS-CoV-2 RdRp Gene Assay - Final Complete 01/12/20 22:30 Urine,Clean Catch Urine Culture - Final Pseudomonas Aeruginosa Complete 01/13/20 00:13 Rectum - Final NO CARBAPENEM-RESISTANT ENTEROBACTERI... Complete Microbiology Date/Time Source Procedure Growth Status 01/20/20 07:30 Nasopharynx SARS-CoV-2 RdRp Gene Assay - Final Complete Labs Test 01/18/20 05:14 01/19/20 05:20 White Blood Count 9.1 K/UL (4.8-10.8) 9.5 K/UL (4.8-10.8) Red Blood Count 4.11 M/UL (4.20-5.40) 4.23 M/UL (4.20-5.40) Hemoglobin 11.3 G/DL (12.0-16.0) 11.6 G/DL (12.0-16.0) Hematocrit 35.4 % (37.0-47.0) 36.8 % (37.0-47.0) Mean Corpuscular Volume 86 FL (80-99) 87 FL (80-99) Mean Corpuscular Hemoglobin 27.5 PG (27.0-31.0) 27.3 PG (27.0-31.0) Mean Corpuscular Hemoglobin Concent 31.9 G/DL (32.0-36.0) 31.4 G/DL (32.0-36.0) Red Cell Distribution Width 13.7 % (11.6-14.8) 14.1 % (11.6-14.8) Platelet Count 172 K/UL (150-450) 203 K/UL (150-450) Mean Platelet Volume 8.6 FL (6.5-10.1) 8.7 FL (6.5-10.1) Neutrophils (%) (Auto) 66.0 % (45.0-75.0) 64.2 % (45.0-75.0) Lymphocytes (%) (Auto) 24.9 % (20.0-45.0) 25.3 % (20.0-45.0) Monocytes (%) (Auto) 6.5 % (1.0-10.0) 8.7 % (1.0-10.0) Eosinophils (%) (Auto) 2.2 % (0.0-3.0) 1.2 % (0.0-3.0) Basophils (%) (Auto) 0.4 % (0.0-2.0) 0.6 % (0.0-2.0) Sodium Level 144 MMOL/L (136-145) 145 MMOL/L (136-145) Potassium Level 4.0 MMOL/L (3.5-5.1) 3.7 MMOL/L (3.5-5.1) Chloride Level 111 MMOL/L (98-107) 109 MMOL/L (98-107) Carbon Dioxide Level 28 MMOL/L (21-32) 30 MMOL/L (21-32) Anion Gap 5 mmol/L (5-15) 6 mmol/L (5-15) Blood Urea Nitrogen 8 mg/dL (7-18) 8 mg/dL (7-18) Creatinine 0.9 MG/DL (0.55-1.30) 0.8 MG/DL (0.55-1.30) Estimat Glomerular Filtration Rate > 60 mL/min (>60) > 60 mL/min (>60) Glucose Level 175 MG/DL (74-106) 198 MG/DL (74-106) Calcium Level 8.2 MG/DL (8.5-10.1) 8.5 MG/DL (8.5-10.1) Magnesium Level 1.8 MG/DL (1.8-2.4) Total Bilirubin 0.4 MG/DL (0.2-1.0) 0.4 MG/DL (0.2-1.0) Aspartate Amino Transf (AST/SGOT) 27 U/L (15-37) 19 U/L (15-37) Alanine Aminotransferase (ALT/SGPT) 16 U/L (12-78) 15 U/L (12-78) Alkaline Phosphatase 59 U/L (46-116) 59 U/L (46-116) Total Protein 6.4 G/DL (6.4-8.2) 6.8 G/DL (6.4-8.2) Albumin 2.2 G/DL (3.4-5.0) 2.4 G/DL (3.4-5.0) Globulin 4.2 g/dL 4.4 g/dL Albumin/Globulin Ratio 0.5 (1.0-2.7) 0.5 (1.0-2.7) Current Medications Medications (Trade) Dose Ordered Sig/Mikey Route PRN Reason Start Time Stop Time Status Last Admin Dose Admin Acetaminophen (Tylenol) 650 mg Q4H PRN ORAL MILD/TEMP 01/13/20 02:30 02/12/20 02:29 01/16/20 16:55 Aspirin (ASA) 81 mg DAILY ORAL 01/13/20 09:00 02/27/20 08:59 01/19/20 09:18 Barium Sulfate (Varibar [place]) 250 ml NOW PRN MC RAD 01/18/20 15:15 01/21/20 15:14 Barium Sulfate (Varibar [place]) 240 ml NOW PRN MC RAD 01/18/20 15:15 01/21/20 15:14 Barium Sulfate (Varibar Pudding) 230 ml NOW PRN MC RAD 01/18/20 15:15 01/21/20 15:14 Barium Sulfate (Varibar Thin Liquid powder) 148 gm NOW PRN MC RAD 01/18/20 15:15 01/21/20 15:14 Carbidopa/Levodopa (Sinemet 25/100) 1 tab BID ORAL 01/13/20 09:00 02/12/20 08:59 01/19/20 19:06 Dextrose/Sodium Chloride 1,000 ml @ 75 mls/hr [id number] IV 01/16/20 09:45 02/15/20 09:44 01/20/20 05:33 Divalproex Sodium (Depakote Sprinkles) 500 mg BEDTIME NG 01/13/20 21:00 02/12/20 20:59 01/19/20 21:43 Docusate Sodium (Colace) 100 mg TWICE A DAY ORAL 01/13/20 09:00 02/12/20 08:59 01/19/20 19:06 Donepezil HCl (Aricept) 10 mg DAILY ORAL 01/13/20 09:00 02/12/20 08:59 01/19/20 09:19 Enoxaparin Sodium (Lovenox) 40 mg DAILY SUBQ 01/15/20 09:00 04/14/20 08:59 01/19/20 09:25 Gabapentin (Neurontin) 100 mg THREE TIMES A DAY ORAL 01/13/20 09:00 02/12/20 08:59 01/20/20 13:34 Levetiracetam 100 ml @ 400 mls/hr Q12HR IVPB 01/14/20 23:45 04/13/20 23:44 01/19/20 20:17 Lorazepam (Ativan 2mg/ml 1ml) 0.25 mg Q4H PRN IV For Anxiety 01/16/20 09:45 01/23/20 09:44 01/20/20 06:59 Magnesium Hydroxide (Mom) 30 ml DAILY PRN ORAL Constipation 01/13/20 02:30 02/12/20 02:29 Metoclopramide HCl (Reglan) 5 mg Q6HR IVP 01/17/20 10:30 02/16/20 10:29 01/20/20 13:34 Mirtazapine (Remeron) 45 mg BEDTIME ORAL 01/13/20 21:00 04/12/20 20:59 01/19/20 21:43 Morphine Sulfate (Morphine Sulfate) 2 mg Q4H PRN IVP Severe Pain (Pain Scale 7-10) 01/15/20 17:30 01/22/20 13:29 01/19/20 06:29 Piperacillin Sod/ Tazobactam Sod 3.375 gm/Sodium Chloride 110 ml @ 27.5 mls/hr EVERY 8 HOURS IVPB 01/16/20 14:00 01/21/20 13:59 01/20/20 13:46 Sennosides (Senokot) 8.6 mg BEDTIME ORAL 01/13/20 21:00 02/12/20 20:59 01/19/20 21:43 Rola Junior MD Jan 20, 2020 14:52
--- NOTE | 2020-01-20 15:24 | NUR ---
CASE MANAGEMENT:REVIEW SI;PSEUDOMONAS UTI. ENCEPHALOPATHY. PULMONARY EDEMA. S/P PEG PLACEMENT TODAY 98.2 90 27 151/71 96% 3L NC BG 198 ALB 2.4 IS;REGLAN IV Q6 ZOSYN IV Q8 ATIVAN Q4 IV PRN LOVENOX SUBQ QD KEPPRA IV Q12 MED SURG STATUS DCP;[facility] PL[facility]; START GT FEEDINGS MONITOR RESIDUALS
--- NOTE | 2020-01-20 18:29 | Internal Med Progress Note ---
Subjective Date of Service: Jan 20, 2020 Physician Name Raymundo Harley Attending Physician Raymundo Harley MD Current Medications Medications (Trade) Dose Ordered Sig/Mikey Route PRN Reason Start Time Stop Time Status Last Admin Dose Admin Acetaminophen (Tylenol) 650 mg Q4H PRN ORAL MILD/TEMP 01/13/20 02:30 02/12/20 02:29 01/16/20 16:55 Aspirin (ASA) 81 mg DAILY ORAL 01/13/20 09:00 02/27/20 08:59 01/19/20 09:18 Barium Sulfate (Varibar Honey) 250 ml NOW PRN MC RAD 01/18/20 15:15 01/21/20 15:14 Barium Sulfate (Varibar [place]) 240 ml NOW PRN MC RAD 01/18/20 15:15 01/21/20 15:14 Barium Sulfate (Varibar Pudding) 230 ml NOW PRN MC RAD 01/18/20 15:15 01/21/20 15:14 Barium Sulfate (Varibar Thin Liquid powder) 148 gm NOW PRN MC RAD 01/18/20 15:15 01/21/20 15:14 Carbidopa/Levodopa (Sinemet 25/100) 1 tab BID ORAL 01/13/20 09:00 02/12/20 08:59 01/20/20 18:24 Dextrose/Sodium Chloride 1,000 ml @ 75 mls/hr [id number] IV 01/16/20 09:45 02/15/20 09:44 01/20/20 05:33 Divalproex Sodium (Depakote Sprinkles) 500 mg BEDTIME NG 01/13/20 21:00 02/12/20 20:59 01/19/20 21:43 Docusate Sodium (Colace) 100 mg TWICE A DAY ORAL 01/13/20 09:00 02/12/20 08:59 01/19/20 19:06 Donepezil HCl (Aricept) 10 mg DAILY ORAL 01/13/20 09:00 02/12/20 08:59 01/19/20 09:19 Enoxaparin Sodium (Lovenox) 40 mg DAILY SUBQ 01/15/20 09:00 04/14/20 08:59 01/19/20 09:25 Gabapentin (Neurontin) 100 mg THREE TIMES A DAY ORAL 01/13/20 09:00 02/12/20 08:59 01/20/20 18:24 Levetiracetam 100 ml @ 400 mls/hr Q12HR IVPB 01/14/20 23:45 04/13/20 23:44 01/19/20 20:17 Lorazepam (Ativan 2mg/ml 1ml) 0.25 mg Q4H PRN IV For Anxiety 01/16/20 09:45 01/23/20 09:44 01/20/20 06:59 Magnesium Hydroxide (Mom) 30 ml DAILY PRN ORAL Constipation 01/13/20 02:30 02/12/20 02:29 Metoclopramide HCl (Reglan) 5 mg Q6HR IVP 01/17/20 10:30 02/16/20 10:29 01/20/20 18:24 Mirtazapine (Remeron) 45 mg BEDTIME ORAL 01/13/20 21:00 04/12/20 20:59 01/19/20 21:43 Morphine Sulfate (Morphine Sulfate) 2 mg Q4H PRN IVP Severe Pain (Pain Scale 7-10) 01/15/20 17:30 01/22/20 13:29 01/19/20 06:29 Sennosides (Senokot) 8.6 mg BEDTIME ORAL 01/13/20 21:00 02/12/20 20:59 01/19/20 21:43 Allergies: Coded Allergies: No Known Allergies (Unverified , 09/25/18) ROS Limited/Unobtainable: Yes All Systems: reviewed and negative except above Subjective PEG today NGT feeding in progress [place] dced on purewick failed ST eval high risk of aspiration Objective Last Vital Signs Date Time Temp Pulse Resp B/P (MAP) Pulse Ox O2 Delivery O2 Flow Rate FiO2 01/20/20 16:00 97.9 87 18 137/81 (99) 98 01/20/20 09:25 Nasal Cannula 3 01/18/20 07:00 32 General Appearance: no apparent distress Cardiovascular: normal rate, regular rhythm Respiratory/Chest: lungs clear Abdomen: normal bowel sounds, non tender, soft, other - +PEG Extremities: other - R knee flexion contracture, L foor drop Skin: warm/dry Microbiology Date/Time Source Procedure Growth Status 9/11/20 07:30 Nasopharynx SARS-CoV-2 RdRp Gene Assay - Final Complete Intake and Output 01/19/20 01/20/20 19:00 07:00 Intake Total 1895.0 ml 320 ml Output Total 400 ml 1000 ml Balance 1495.0 ml -680 ml Free Water 200 ml 100 ml IV Total 1035.0 ml Tube Feeding 660 ml 220 ml Output Urine Total 400 ml 1000 ml # Voids 2 1 # Bowel Movements 1 Assessment/Plan Status: stable, progressing, tolerating diet Assessment/Plan Impression: acute hypoxic resp failure fever dysphagia hypotension possible early shock acute toxic encephalopathy UTI parkinson's disease dementia with behavior disturbance sinus bradycardia bedbound status senile debility anxiety VRE colonization hypernatremia hypokalemia PLAN: PEG today TF per GI off abx bedside swallow eval noted, failed toda. son agreed with PEG K repleted off tim keppra to IV ammonia 41 ABG noted PCo2 normal DC atenolol due to bradycardia IV abx completed pain control aspiration precaution oxygen morphine prn pain IV FULL CODE. d/w amy alonoz over 35 min spent today. over 50% with counseling , coordinate of care , advance care planning d/w son. RAYMUNDO HARLEY MD INTERNAL MEDICINE [phone] Raymundo Harley MD Jan 20, 2020 18:29
--- NOTE | 2020-01-20 19:20 | NUR ---
NURSE HAND-OFF: Important Events on Shift: PEG placement today; Started TF of Glucerna 1.2 currently at 20ml/hr; Goal rate of 55ml/hr; BM x 2 today, loose stool Patient Status: stable Diet: Glucerna 1.2 TF Pending Orders: n/a Pending Results/Labs: CBC and CMP tomorrow? Pending MD notification: n/a Latest Vital Signs: Temperature 97.9 , Pulse 87 , B/P 137 /81 , Respiratory Rate 18 , O2 SAT 98 , Nasal Cannula, O2 Flow Rate 3 . Vital Sign Comment: continue to monitor Latest [place] Fall Score: 70 Fall Risk: High Risk Safety Measures: Call light Within Reach, Bed Alarm Zone 2, Side Rails Side Rails x3, Bed position Low and Locked. Fall Precautions: Yellow Socks Yellow Gown Door Sign Patient Fall Education Report given to MADDY Yanes. Endorsed POC.
--- NOTE | 2020-01-20 19:21 | NUR ---
NURSE NOTES: Received pt on the bed asleep. Pt has no sob,fever, cough and pain at the moment. Iv is intact and asymptomatic .pt has Gtube Glucerna 1.2 20 cc is running. Bed is on the lowest position,locked and alarm on. Call light within reach. We will keep monitoring the pt.
[2020-01-20] MEDS: Depakote 125mg Sprinkles NG SCH (20:11)
[2020-01-20] MEDS: Sennosides 8.6mg tab ORAL SCH (20:11)
[2020-01-21] VITALS: BP 157/72
[2020-01-21] MEDS: Metoclopramide 10mg/2ml Inj IVP SCH ×5 (00:07→23:53)
[2020-01-21] MEDS: Morphine Sulfate 2mg/ml Inj(IV/IM USE ONLY) IVP PRN ×3 (01:59→20:14)
[2020-01-21 04:00] VITALS: BP 135/74
--- NOTE | 2020-01-21 06:50 | Pulmonology Progress Note ---
Subjective ROS Limited/Unobtainable: Yes Interval Events: None new Constitutional: Reports: fatigue; Denies: fever HEENT: Repors: no symptoms Respiratory: Reports: no symptoms Cardiovascular: Reports: no symptoms Gastrointestinal/Abdominal: Denies: nausea, vomiting Genitourinary: Reports: no symptoms Psychiatric: Denies: depression Skin: Denies: rash Musculoskeletal: Denies: pain Allergies: Coded Allergies: No Known Allergies (Unverified , 09/25/18) All Systems: reviewed and negative except above Objective Last 24 Hour Vital Signs Date Time Temp Pulse Resp B/P (MAP) Pulse Ox O2 Delivery O2 Flow Rate FiO2 01/21/20 04:00 98.1 81 18 135/74 (94) 95 01/21/20 00:00 97.9 76 18 157/72 (100) 93 01/20/20 21:36 Room Air 01/20/20 20:00 98.4 80 18 122/70 (87) 95 01/20/20 16:00 97.9 87 18 137/81 (99) 98 01/20/20 12:00 97.6 88 18 141/82 (101) 98 01/20/20 09:25 97.9 72 23 137/60 99 Nasal Cannula 3 01/20/20 09:19 72 23 142/63 99 Nasal Cannula 3 01/20/20 09:09 73 15 128/66 99 Nasal Cannula 3 01/20/20 09:04 74 17 124/64 99 Nasal Cannula 3 01/20/20 09:02 79 18 98 01/20/20 09:00 Room Air 01/20/20 08:59 97.4 76 27 121/66 98 Nasal Cannula 3 01/20/20 08:00 98.1 83 18 139/69 (92) 99 01/20/20 07:29 90 19 144/74 96 01/20/20 06:59 85 18 151/71 97 Intake and Output 01/20/20 01/21/20 19:00 07:00 Intake Total 1857.5 ml 700 ml Balance 1857.5 ml 700 ml Free Water 200 ml IV Total 1537.5 ml 700 ml Tube Feeding 120 ml # Voids 2 # Bowel Movements 2 General Appearance: no acute distress HEENT: normocephalic Respiratory: chest wall non-tender Cardiovascular: normal peripheral pulses Abdomen: normal bowel sounds Microbiology Date/Time Source Procedure Growth Status 01/20/20 07:30 Nasopharynx SARS-CoV-2 RdRp Gene Assay - Final Complete Laboratory Tests 01/21/20 06:20: White Blood Count [Pending], Red Blood Count [Pending], Hemoglobin [Pending], Hematocrit [Pending], Mean Corpuscular Volume [Pending], Mean Corpuscular Hemoglobin [Pending], Mean Corpuscular Hemoglobin Concent [Pending], Red Cell Distribution Width [Pending], Platelet Count [Pending], Mean Platelet Volume [ Pending], Neutrophils (%) (Auto) [Pending], Lymphocytes (%) (Auto) [Pending], Monocytes (%) (Auto) [Pending], Eosinophils (%) (Auto) [Pending], Basophils (%) (Auto) [Pending], Sodium Level [Pending], Potassium Level [Pending], Chloride Level [Pending], Carbon Dioxide Level [Pending], Blood Urea Nitrogen [Pending], Creatinine [Pending], Estimat Glomerular Filtration Rate [Pending], Glucose Level [Pending], Calcium Level [Pending], Total Bilirubin [Pending], Aspartate Amino Transf (AST/SGOT) [Pending], Alanine Aminotransferase (ALT/SGPT) [Pending] , Alkaline Phosphatase [Pending], Total Protein [Pending], Albumin [Pending], Globulin [Pending] Current Medications Medications (Trade) Dose Ordered Sig/Mikey Route PRN Reason Start Time Stop Time Status Last Admin Dose Admin Acetaminophen (Tylenol) 650 mg Q4H PRN ORAL MILD/TEMP 01/13/20 02:30 02/12/20 02:29 01/16/20 16:55 Aspirin (ASA) 81 mg DAILY ORAL 01/13/20 09:00 02/27/20 08:59 01/19/20 09:18 Barium Sulfate (Varibar [place]) 250 ml NOW PRN MC RAD 01/18/20 15:15 01/21/20 15:14 Barium Sulfate (Varibar [place]) 240 ml NOW PRN MC RAD 01/18/20 15:15 01/21/20 15:14 Barium Sulfate (Varibar [place]) 230 ml NOW PRN MC RAD 01/18/20 15:15 01/21/20 15:14 Barium Sulfate (Varibar Thin Liquid powder) 148 gm NOW PRN MC RAD 01/18/20 15:15 01/21/20 15:14 Carbidopa/Levodopa (Sinemet 25/100) 1 tab BID ORAL 01/13/20 09:00 02/12/20 08:59 01/20/20 18:24 Dextrose/Sodium Chloride 1,000 ml @ 75 mls/hr [id number] IV 01/16/20 09:45 02/15/20 09:44 01/20/20 20:12 Divalproex Sodium (Depakote Sprinkles) 500 mg BEDTIME NG 01/13/20 21:00 02/12/20 20:59 01/20/20 20:11 Docusate Sodium (Colace) 100 mg TWICE A DAY ORAL 01/13/20 09:00 02/12/20 08:59 01/19/20 19:06 Donepezil HCl (Aricept) 10 mg DAILY ORAL 01/13/20 09:00 02/12/20 08:59 01/19/20 09:19 Enoxaparin Sodium (Lovenox) 40 mg DAILY SUBQ 01/15/20 09:00 04/14/20 08:59 01/19/20 09:25 Gabapentin (Neurontin) 100 mg THREE TIMES A DAY ORAL 01/13/20 09:00 02/12/20 08:59 01/20/20 18:24 Levetiracetam 100 ml @ 400 mls/hr Q12HR IVPB 01/14/20 23:45 04/13/20 23:44 01/20/20 20:12 Lorazepam (Ativan 2mg/ml 1ml) 0.25 mg Q4H PRN IV For Anxiety 01/16/20 09:45 01/23/20 09:44 01/20/20 06:59 Magnesium Hydroxide (Mom) 30 ml DAILY PRN ORAL Constipation 01/13/20 02:30 02/12/20 02:29 Metoclopramide HCl (Reglan) 5 mg Q6HR IVP 01/17/20 10:30 02/16/20 10:29 01/21/20 05:05 Mirtazapine (Remeron) 45 mg BEDTIME ORAL 01/13/20 21:00 04/12/20 20:59 01/20/20 20:11 Morphine Sulfate (Morphine Sulfate) 2 mg Q4H PRN IVP Severe Pain (Pain Scale 7-10) 01/15/20 17:30 01/22/20 13:29 01/21/20 01:59 Sennosides (Senokot) 8.6 mg BEDTIME ORAL 01/13/20 21:00 02/12/20 20:59 01/20/20 20:11 Assessment/Plan Assessment/Plan IMPRESSION: 1. Possible aspiration pneumonia. Followup CXR shows small left pleural effusion 2. UTI. 3. Dementia. 4. Parkinson's. DISCUSSION: Continue abx for UTI and possible aspiration pneumonia Continue oxygen as needed and pulmonary hygiene. 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 Saturating well on low flow O2 NGT in place Ilene Becerra Omar Syed MD Jan 21, 2020 06:50
[2020-01-21 07:07] LABS: ALANINE AMINOTRANSFERASE 16 U/L (12-78); ALBUMIN 2.4 G/DL (3.4-5.0); ALBUMIN/GLOBULIN RATIO 0.5 (1.0-2.7); ALKALINE PHOSPHATASE 71 U/L (46-116); ANION GAP 9 mmol/L (5-15); ASPARTATE AMINO TRANSFERASE 23 U/L (15-37); BILIRUBIN,TOTAL 0.4 MG/DL (0.2-1.0); BLOOD UREA NITROGEN 7 mg/dL (7-18); CALCIUM 9.2 MG/DL (8.5-10.1); CARBON DIOXIDE 30 MMOL/L (21-32); CHLORIDE 104 MMOL/L (98-107); CREATININE 0.9 MG/DL (0.55-1.30); POTASSIUM 3.6 MMOL/L (3.5-5.1); SODIUM 142 MMOL/L (136-145)
--- NOTE | 2020-01-21 07:15 | NUR ---
NURSE HAND-OFF: Important Events on Shift:Na Patient Status: stable Diet: Glucerna 1.2 55 cc Pending Orders: Pending Results/Labs:CBC,BMP Pending MD notification: Latest Vital Signs: Temperature 98.1 , Pulse 81 , B/P 135 /74 , Respiratory Rate 18 , O2 SAT 95 , Room Air, O2 Flow Rate 3 . Vital Sign Comment: Latest Houser Fall Score: 50 Fall Risk: High Risk Safety Measures: Call light Within Reach, Bed Alarm Zone 2, Side Rails Side Rails x3, Bed position Low and Locked. Fall Precautions: Yellow Socks Yellow Gown Door Sign Patient Fall Education Report given to MADDY Hiltno.
--- NOTE | 2020-01-21 07:15 | NUR ---
NURSE NOTES: Received report from MADDY Yanes. Patient received lying in hospital bed, with HOB elevated. Pt is responsive to name calling, moans, able to respond with some words, Farsi speaking mostly, and does not open eyes as patient is legally blind. Pt is on RA with no s/s of respiratory distress. GT in place wrapped with ABD binder running Glucerna 1.2 at goal rate of 55 ml/hr. Pt is incontinent x2 with purewick in place. LBM this AM. Skin intact. pIV to R Hand 22g running D5 1/2 NS at 75 ml/hr. Bed in lowest position, locked, with bed alarm on. Will continue POC.
[2020-01-21 07:36] LABS: BASOPHILS % (AUTO) 0.3 % (0.0-2.0); EOSINOPHILS % (AUTO) 1.1 % (0.0-3.0); HEMATOCRIT 39.6 % (37.0-47.0); HEMOGLOBIN 12.4 G/DL (12.0-16.0); LYMPHOCYTES % (AUTO) 23.3 % (20.0-45.0); MEAN CORPUSCULAR VOLUME 87 FL (80-99); MONOCYTES % (AUTO) 6.3 % (1.0-10.0); PLATELET COUNT 254 K/UL (150-450); RED BLOOD COUNT 4.55 M/UL (4.20-5.40); RED CELL DISTRIBUTION WIDTH 13.9 % (11.6-14.8); WHITE BLOOD COUNT 12.1 K/UL (4.8-10.8)
[2020-01-21 08:00] VITALS: BP 136/71
[2020-01-21] MEDS: Aspirin Baby 81mg ORAL SCH (08:37)
[2020-01-21] MEDS: Levodopa/Carbidopa 25/100 tab ORAL SCH ×2 (08:37→17:53)
[2020-01-21] MEDS: Donepezil 10mg tab ORAL SCH (08:37)
[2020-01-21] MEDS: Enoxaparin 40mg Inj SUBQ SCH (08:39)
[2020-01-21] MEDS: Docusate 100mg cap ORAL SCH ×2 (08:40→17:50)
[2020-01-21] MEDS: levETIRAcetam 500mg/NS100ml 100 ML IVPB SCH ×2 (08:40→20:09)
[2020-01-21] MEDS: D5 1/2NS 1,000 ML IV SCH (08:47)
[2020-01-21 12:00] VITALS: BP 149/63
[2020-01-21 16:00] VITALS: BP 111/52
--- NOTE | 2020-01-21 19:19 | NUR ---
NURSE HAND-OFF: Important Events on Shift: Residual at 0900 was 160ml, held TF for two hours, rechecked after two hours, no residual; restarted feeding at 30 ml/hr then increased gradually every two hours up to goal rate of 55 ml/hr by 1800; Max temp of 100 degrees, Tylenol PRN given x 1, T rechecked 98.2 Patient Status: stable Diet: TF Glucerna 1.2 Pending Orders: n/a Pending Results/Labs: n/a Pending MD notification: n/a Latest Vital Signs: Temperature 98.2 , Pulse 78 , B/P 111 /52 , Respiratory Rate 18 , O2 SAT 92 , Room Air, O2 Flow Rate 3 . Vital Sign Comment: Latest Houser Fall Score: 50 Fall Risk: High Risk Safety Measures: Call light Within Reach, Bed Alarm Zone 2, Side Rails Side Rails x3, Bed position Low and Locked. Fall Precautions: Yellow Socks Yellow Gown Door Sign Patient Fall Education Report given to MADDY Yanes. Endorsed POC.
--- NOTE | 2020-01-21 19:20 | NUR ---
NURSE NOTES: Received pt on the bed asleep. Pt has no sob,fever, cough and pain at the moment. Iv is intact and asymptomatic .pt has Gtube Glucerna 1.2 55 cc is running. Bed is on the lowest position,locked and alarm on. Call light within reach. We will keep monitoring the pt.
[2020-01-21 20:00] VITALS: BP 136/73
[2020-01-21] MEDS: Depakote 125mg Sprinkles NG SCH (20:09)
[2020-01-21] MEDS: Sennosides 8.6mg tab ORAL SCH (20:10)
--- NOTE | 2020-01-21 23:36 | Internal Med Progress Note ---
Subjective Date of Service: Jan 21, 2020 Physician Name Babatunde Harley Attending Physician Babatunde Harley MD Current Medications Medications (Trade) Dose Ordered Sig/Mikey Route PRN Reason Start Time Stop Time Status Last Admin Dose Admin Acetaminophen (Tylenol) 650 mg Q4H PRN ORAL MILD/TEMP 01/13/20 02:30 02/12/20 02:29 01/21/20 14:42 Aspirin (ASA) 81 mg DAILY ORAL 01/13/20 09:00 02/27/20 08:59 01/21/20 08:37 Carbidopa/Levodopa (Sinemet 25/100) 1 tab BID ORAL 01/13/20 09:00 02/12/20 08:59 01/21/20 17:53 Dextrose/Sodium Chloride 1,000 ml @ 75 mls/hr [id number] IV 01/16/20 09:45 02/15/20 09:44 01/21/20 08:47 Divalproex Sodium (Depakote Sprinkles) 500 mg BEDTIME NG 01/13/20 21:00 02/12/20 20:59 01/21/20 20:09 Docusate Sodium (Colace) 100 mg TWICE A DAY ORAL 01/13/20 09:00 02/12/20 08:59 01/19/20 19:06 Donepezil HCl (Aricept) 10 mg DAILY ORAL 01/13/20 09:00 02/12/20 08:59 01/21/20 08:37 Enoxaparin Sodium (Lovenox) 40 mg DAILY SUBQ 01/15/20 09:00 04/14/20 08:59 01/21/20 08:39 Gabapentin (Neurontin) 100 mg THREE TIMES A DAY ORAL 01/13/20 09:00 02/12/20 08:59 01/21/20 17:53 Levetiracetam 100 ml @ 400 mls/hr Q12HR IVPB 01/14/20 23:45 04/13/20 23:44 01/21/20 20:09 Lorazepam (Ativan 2mg/ml 1ml) 0.25 mg Q4H PRN IV For Anxiety 01/16/20 09:45 01/23/20 09:44 01/20/20 06:59 Magnesium Hydroxide (Mom) 30 ml DAILY PRN ORAL Constipation 01/13/20 02:30 02/12/20 02:29 Metoclopramide HCl (Reglan) 5 mg Q6HR IVP 01/17/20 10:30 02/16/20 10:29 01/21/20 17:54 Mirtazapine (Remeron) 45 mg BEDTIME ORAL 01/13/20 21:00 04/12/20 20:59 01/21/20 20:09 Morphine Sulfate (Morphine Sulfate) 2 mg Q4H PRN IVP Severe Pain (Pain Scale 7-10) 01/15/20 17:30 01/22/20 13:29 01/21/20 20:14 Sennosides (Senokot) 8.6 mg BEDTIME ORAL 01/13/20 21:00 02/12/20 20:59 01/21/20 20:10 Allergies: Coded Allergies: No Known Allergies (Unverified , 09/25/18) ROS Limited/Unobtainable: Yes Constitutional: Reports: no symptoms Cardiovascular: Reports: no symptoms Respiratory: Reports: no symptoms Genitourinary: Reports: no symptoms Neurologic/Psychiatric: Reports: pre-existing deficit Subjective s/p PEG NGT feeding in progress Objective Last Vital Signs Date Time Temp Pulse Resp B/P (MAP) Pulse Ox O2 Delivery O2 Flow Rate FiO2 01/21/20 20:45 Room Air 01/21/20 20:00 98.3 76 22 136/73 (94) 96 01/20/20 09:25 3 01/18/20 07:00 32 General Appearance: no apparent distress Cardiovascular: normal rate, regular rhythm Respiratory/Chest: lungs clear Abdomen: normal bowel sounds, non tender, soft, other - +PEG Genitourinary/Rectal: normal genital exam Extremities: other - R flexion contracture Neurologic: responsive Skin: warm/dry Laboratory Tests Test 01/21/20 06:20 White Blood Count 12.1 K/UL (4.8-10.8) H Red Blood Count 4.55 M/UL (4.20-5.40) Hemoglobin 12.4 G/DL (12.0-16.0) Hematocrit 39.6 % (37.0-47.0) Mean Corpuscular Volume 87 FL (80-99) Mean Corpuscular Hemoglobin 27.2 PG (27.0-31.0) Mean Corpuscular Hemoglobin Concent 31.2 G/DL (32.0-36.0) L Red Cell Distribution Width 13.9 % (11.6-14.8) Platelet Count 254 K/UL (150-450) Mean Platelet Volume 8.2 FL (6.5-10.1) Neutrophils (%) (Auto) 69.0 % (45.0-75.0) Lymphocytes (%) (Auto) 23.3 % (20.0-45.0) Monocytes (%) (Auto) 6.3 % (1.0-10.0) Eosinophils (%) (Auto) 1.1 % (0.0-3.0) Basophils (%) (Auto) 0.3 % (0.0-2.0) Sodium Level 142 MMOL/L (136-145) Potassium Level 3.6 MMOL/L (3.5-5.1) Chloride Level 104 MMOL/L (98-107) Carbon Dioxide Level 30 MMOL/L (21-32) Anion Gap 9 mmol/L (5-15) Blood Urea Nitrogen 7 mg/dL (7-18) Creatinine 0.9 MG/DL (0.55-1.30) Estimat Glomerular Filtration Rate > 60 mL/min (>60) Glucose Level 157 MG/DL (74-106) H Calcium Level 9.2 MG/DL (8.5-10.1) Total Bilirubin 0.4 MG/DL (0.2-1.0) Aspartate Amino Transf (AST/SGOT) 23 U/L (15-37) Alanine Aminotransferase (ALT/SGPT) 16 U/L (12-78) Alkaline Phosphatase 71 U/L (46-116) Total Protein 7.5 G/DL (6.4-8.2) Albumin 2.4 G/DL (3.4-5.0) L Globulin 5.1 g/dL Albumin/Globulin Ratio 0.5 (1.0-2.7) L Microbiology Date/Time Source Procedure Growth Status 01/20/20 07:30 Nasopharynx SARS-CoV-2 RdRp Gene Assay - Final Complete Intake and Output 01/20/20 01/21/20 19:00 07:00 Intake Total 1857.5 ml 700 ml Output Total 800 ml Balance 1857.5 ml -100 ml Free Water 200 ml IV Total 1537.5 ml 700 ml Tube Feeding 120 ml Output Urine Total 800 ml # Voids 2 # Bowel Movements 2 2 Assessment/Plan Status: stable, progressing, tolerating diet Assessment/Plan Impression: acute hypoxic resp failure fever dysphagia hypotension possible early shock acute toxic encephalopathy UTI parkinson's disease dementia with behavior disturbance sinus bradycardia bedbound status senile debility anxiety VRE colonization hypernatremia hypokalemia PLAN: DC planning back to SNF s/p PEG TF per GI off abx K repleted off tim keppra to IV change to PO ammonia 41 ABG noted PCo2 normal DC atenolol due to bradycardia IV abx completed pain control aspiration precaution oxygen morphine prn pain IV FULL CODE. d/w amy alonzo over 35 min spent today. over 50% with counseling , coordinate of care , advance care planning d/w son. BABATUNDE HARLEY MD INTERNAL MEDICINE [phone] Babatunde Harley MD Jan 21, 2020 23:36
[2020-01-22] VITALS: BP 128/69
[2020-01-22 04:00] VITALS: BP 135/67
[2020-01-22] MEDS: Metoclopramide 10mg/2ml Inj IVP SCH ×2 (06:04→12:05)
--- NOTE | 2020-01-22 07:10 | NUR ---
NURSE HAND-OFF: Important Events on Shift:na Patient Status: stable Diet: gluc 1.2 55cc Pending Orders: Pending Results/Labs: Pending MD notification: Latest Vital Signs: Temperature 98.2 , Pulse 90 , B/P 135 /67 , Respiratory Rate 18 , O2 SAT 95 , Room Air, O2 Flow Rate 3 . Vital Sign Comment: Latest Houser Fall Score: 50 Fall Risk: High Risk Safety Measures: Call light Within Reach, Bed Alarm Zone 2, Side Rails Side Rails x3, Bed position Low and Locked. Fall Precautions: Yellow Socks Yellow Gown Door Sign Patient Fall Education Report given to MADDY HUBER.
--- NOTE | 2020-01-22 07:31 | NUR ---
NURSE NOTES: received patient laying in bed, asleep, in room air, no sign of distress noted. IV access on the right hand, receives Glucerna1.2 @ 55cc/hr. RFA IV access TKO. Bed locked at the lowest position possible, call light within easy reach, siderails up x3, on bed alarm, padded siderails. Will continue to monitor patient and follow up with the plan of care.
[2020-01-22] MEDS: Morphine Sulfate 2mg/ml Inj(IV/IM USE ONLY) IVP PRN (07:53)
[2020-01-22] MEDS: Donepezil 10mg tab ORAL SCH (07:53)
[2020-01-22] MEDS: Aspirin Baby 81mg ORAL SCH (07:53)
[2020-01-22] MEDS: Docusate 100mg cap ORAL SCH (07:54)
[2020-01-22] MEDS: Levodopa/Carbidopa 25/100 tab ORAL SCH (07:54)
[2020-01-22 08:00] VITALS: BP 157/61
[2020-01-22] MEDS: Enoxaparin 40mg Inj SUBQ SCH (08:04)
--- NOTE | 2020-01-22 09:08 | Pulmonology Progress Note ---
Subjective ROS Limited/Unobtainable: Yes Interval Events: None new Constitutional: Reports: fatigue; Denies: fever HEENT: Repors: no symptoms Respiratory: Reports: no symptoms Cardiovascular: Reports: no symptoms Gastrointestinal/Abdominal: Denies: nausea, vomiting Genitourinary: Reports: no symptoms Psychiatric: Denies: depression Skin: Denies: rash Musculoskeletal: Denies: pain Allergies: Coded Allergies: No Known Allergies (Unverified , 09/25/18) All Systems: reviewed and negative except above Objective Last 24 Hour Vital Signs Date Time Temp Pulse Resp B/P (MAP) Pulse Ox O2 Delivery O2 Flow Rate FiO2 01/22/20 08:00 99.5 87 19 157/61 (93) 95 01/22/20 04:00 98.2 90 18 135/67 (89) 95 01/22/20 00:00 97.3 78 20 128/69 (88) 97 01/21/20 20:45 Room Air 01/21/20 20:00 98.3 76 22 136/73 (94) 96 01/21/20 16:00 98.2 78 18 111/52 (71) 92 01/21/20 15:12 98.2 01/21/20 12:00 98.1 88 16 149/63 (91) 96 Intake and Output 01/21/20 01/22/20 19:00 07:00 Intake Total 225 ml 355 ml Output Total 650 ml Balance 225 ml -295 ml IV Total 225 ml 300 ml Tube Feeding 55 ml Output Urine Total 650 ml # Bowel Movements 1 1 General Appearance: no acute distress HEENT: normocephalic Respiratory: chest wall non-tender Cardiovascular: normal peripheral pulses Abdomen: normal bowel sounds Microbiology Date/Time Source Procedure Growth Status 01/20/20 07:30 Nasopharynx SARS-CoV-2 RdRp Gene Assay - Final Complete Current Medications Medications (Trade) Dose Ordered Sig/Mikey Route PRN Reason Start Time Stop Time Status Last Admin Dose Admin Acetaminophen (Tylenol) 650 mg Q4H PRN ORAL MILD/TEMP 01/13/20 02:30 02/12/20 02:29 01/21/20 14:42 Aspirin (ASA) 81 mg DAILY ORAL 01/13/20 09:00 02/27/20 08:59 01/22/20 07:53 Carbidopa/Levodopa (Sinemet 25/100) 1 tab BID ORAL 01/13/20 09:00 02/12/20 08:59 01/22/20 07:54 Divalproex Sodium (Depakote Sprinkles) 500 mg BEDTIME NG 01/13/20 21:00 02/12/20 20:59 01/21/20 20:09 Docusate Sodium (Colace) 100 mg TWICE A DAY ORAL 01/13/20 09:00 02/12/20 08:59 01/22/20 07:54 Donepezil HCl (Aricept) 10 mg DAILY ORAL 01/13/20 09:00 02/12/20 08:59 01/22/20 07:53 Enoxaparin Sodium (Lovenox) 40 mg DAILY SUBQ 01/15/20 09:00 04/14/20 08:59 01/22/20 08:04 Gabapentin (Neurontin) 100 mg THREE TIMES A DAY ORAL 01/13/20 09:00 02/12/20 08:59 01/22/20 07:54 Levetiracetam (Keppra) 500 mg Q12HR ORAL 01/22/20 09:00 02/21/20 08:59 01/22/20 08:08 Lorazepam (Ativan 2mg/ml 1ml) 0.25 mg Q4H PRN IV For Anxiety 01/16/20 09:45 01/23/20 09:44 01/20/20 06:59 Magnesium Hydroxide (Mom) 30 ml DAILY PRN ORAL Constipation 01/13/20 02:30 02/12/20 02:29 Metoclopramide HCl (Reglan) 5 mg Q6HR IVP 01/17/20 10:30 02/16/20 10:29 01/22/20 06:04 Mirtazapine (Remeron) 45 mg BEDTIME ORAL 01/13/20 21:00 04/12/20 20:59 01/21/20 20:09 Morphine Sulfate (Morphine Sulfate) 2 mg Q4H PRN IVP Severe Pain (Pain Scale 7-10) 01/15/20 17:30 01/22/20 13:29 01/22/20 07:53 Sennosides (Senokot) 8.6 mg BEDTIME ORAL 01/13/20 21:00 02/12/20 20:59 01/21/20 20:10 Assessment/Plan Assessment/Plan IMPRESSION: 1. Possible aspiration pneumonia. Followup CXR shows small left pleural effusion 2. UTI. 3. Dementia. 4. Parkinson's. DISCUSSION: Continue abx for UTI and possible aspiration pneumonia Continue oxygen as needed and pulmonary hygiene. I will follow as pre coder. Saturating well on low flow O2 Ilene Becerra Omar Syed MD Jan 22, 2020 09:08
--- NOTE | 2020-01-22 09:29 | Diagnostic Imaging Report ---
EXAM: XR Chest, 1 View CLINICAL HISTORY: INFECT TECHNIQUE: Frontal view of the chest. COMPARISON: 01/18/20. FINDINGS: Lungs: Mild basilar atelectasis. Difficult to exclude infectious infiltrate. Pleural space: Redemonstrated blunting of the left costophrenic sulcus suggesting small pleural effusion. Heart: Unremarkable. No cardiomegaly. Mediastinum: Aortic calcification. Bones/joints: Osteopenia. Degenerative changes. IMPRESSION: Redemonstrated blunting of the left costophrenic sulcus suggesting small pleural effusion. Mild left basilar atelectasis again noted. Difficult to exclude infectious infiltrate.
[2020-01-22 12:00] VITALS: BP 149/74
[2020-01-22] MEDS ORDERED: HYDROcodone/Acetamin 5/325 tab ORAL PRN (12:30)
--- NOTE | 2020-01-22 13:06 | NUR ---
DISCHARGE PLANNING PATIENT HAS BEEN REFERRED BACK TO [facility] P: [phone] F: [phone] Addendum: 01/22/20 at 1426 by CAROL OSHEA LVN LVN PER REGINA AT [facility], PATIENT ACCEPTED TO RETURN BED 24 A SKILLED BLS AMBULANCE TRANSPORTATION SCHEDULED WITH [facility] EXT 8875 WITH ETA @ 1600. SALVADOR NGUYỄN
[2020-01-22] MEDS ORDERED: traMADol 50mg tab ORAL SCH (14:00)
--- NOTE | 2020-01-22 14:34 | NUR ---
NURSE NOTES: Called [facility], spoken to Zenobia GUADALUPE. This [employer] CLERK informed nurse they are not accepting patient as she was not notified by Alexandro, from the facility's admission department, that patient would be readmitted there today. Nurse let TIM Roberson know, she said she'll contact Alexandro and call this nurse back.
--- NOTE | 2020-01-22 15:05 | NUR ---
7NURSE NOTES: called [facility], report given to MADDY Mondragon from the facility. Taken IV access off. Notified chris Mcgee regarding patient's discharge, and transfer back to the [facility]. Chris isasking PT order for patient. Notified dr. Barrera. Addendum: 01/22/20 at 1525 by MANAN HUBER RN chris Mcgee said he'll be here at 1600 to oversee the discharge.
--- NOTE | 2020-01-22 15:28 | Infectious Diseases Prog Note ---
Assessment/Plan Assessment/Plan ASSESSMENT AND PLAN: 1. Pseudomonas uti, aspiration pna/hcap, vre colonization, mrsa screen negative lgt - 99.5, mild leukocytosis - s/p zosyn course - monitor labs and chest x-ray, monitor temps, monitor wbc - clinically stable - chest x-ray with atx/effusion 2. Diabetes mellitus. 3. Hypertension. 4. Blood sugar and blood pressure treatment per primary care team for diabetes and hypertension. 5. Parkinson's. 6. Dementia. 7. Dysphagia. 8. Aspiration risk. 9. Weakness. 10. Continue treatment per primary consultants. 11. No known drug allergies. 12. Social history is negative. 13. Family history is noncontributory. 14. MAR was noted. 15. Case was discussed with RN. 16. Continue treatment per primary consultants. 17. Orders were noted and entered. 18. Skin care protocol. Subjective Constitutional: Denies: fever HEENT: Denies: congestion Respiratory: Denies: shortness of breath Cardiovascular: Denies: chest pain Gastrointestinal/Abdominal: Denies: nausea, vomiting, diarrhea Genitourinary: Reports: other - no tim Neurologic: Denies: headache Psychiatric: Denies: depression Skin: Denies: rash Hematologic: Denies: bleeding Musculoskeletal: Denies: pain Allergies: Coded Allergies: No Known Allergies (Unverified , 09/25/18) Objective Last 24 Hour Vital Signs Date Time Temp Pulse Resp B/P (MAP) Pulse Ox O2 Delivery O2 Flow Rate FiO2 01/22/20 15:15 99.0 01/22/20 12:00 99.0 85 19 149/74 (99) 96 01/22/20 09:00 Room Air 01/22/20 08:23 99.5 01/22/20 08:00 99.5 87 19 157/61 (93) 95 01/22/20 04:00 98.2 90 18 135/67 (89) 95 01/22/20 00:00 97.3 78 20 128/69 (88) 97 01/21/20 20:45 Room Air 01/21/20 20:00 98.3 76 22 136/73 (94) 96 01/21/20 16:00 98.2 78 18 111/52 (71) 92 Height (Feet): 5 Height (Inches): 5.00 Weight (Pounds): 123 General Appearance: no acute distress HEENT: normocephalic, atraumatic, anicteric Respiratory/Chest: lungs clear, normal breath sounds, no accessory muscle use, respiratory distress Cardiovascular: normal peripheral pulses, normal rate, regular rhythm, no gallop/murmur, no JVD Abdomen: normal bowel sounds, soft, non tender, no organomegaly, non distended Genitourinary: other - no tim Extremities: no cyanosis Skin: no rash Neurologic/Psychiatric: other - weak, opens eyes Lymphatic: no neck adenopathy Musculoskeletal: no effusion Chest x-ray - 01/16/20 - FINDINGS/IMPRESSION: Patchy airspace opacity within the right midlung field. Small bilateral pleural effusions, left greater than right. Overall, the degree of pleural effusion on the left has improved. No pneumothorax. Cardiomegaly. Calcified aorta. Chest x-ray - 01/18/20 - Procedure: XRAY Chest 1v Indication: Shortness of Technique: One view of the chest Comparison: 01/16/2020 Findings: Weighted Dobbhoff type feeding tube is coiled in the gastric fundus. There is slight blunting of left costophrenic sulcus again demonstrated, may reflect pleural fluid versus thickening. The remainder the lungs and pleural spaces are clear. The heart size is normal. There are surgical clips in the right axilla Impression: Left sided pleural effusion versus pleural thickening, unchanged over 2 days. No acute process otherwise Other findings as noted Chest x-ray - 01/22/20 - FINDINGS: Lungs: Mild basilar atelectasis. Difficult to exclude infectious infiltrate. Pleural space: Redemonstrated blunting of the left costophrenic sulcus suggesting small pleural effusion. Heart: Unremarkable. No cardiomegaly. Mediastinum: Aortic calcification. Bones/joints: Osteopenia. Degenerative changes. IMPRESSION: Redemonstrated blunting of the left costophrenic sulcus suggesting small pleural effusion. Mild left basilar atelectasis again noted. Difficult to exclude infectious infiltrate. Microbiology Date/Time Source Procedure Growth Status 01/12/20 22:30 Blood Blood Culture - Final NO GROWTH AFTER 5 DAYS Complete 01/20/20 07:30 Nasopharynx SARS-CoV-2 RdRp Gene Assay - Final Complete 01/12/20 22:30 Urine,Clean Catch Urine Culture - Final Pseudomonas Aeruginosa Complete 01/13/20 00:13 Rectum - Final NO CARBAPENEM-RESISTANT ENTEROBACTERI... Complete Microbiology Date/Time Source Procedure Growth Status 01/20/20 07:30 Nasopharynx SARS-CoV-2 RdRp Gene Assay - Final Complete Labs Test 01/21/20 06:20 White Blood Count 12.1 K/UL (4.8-10.8) Red Blood Count 4.55 M/UL (4.20-5.40) Hemoglobin 12.4 G/DL (12.0-16.0) Hematocrit 39.6 % (37.0-47.0) Mean Corpuscular Volume 87 FL (80-99) Mean Corpuscular Hemoglobin 27.2 PG (27.0-31.0) Mean Corpuscular Hemoglobin Concent 31.2 G/DL (32.0-36.0) Red Cell Distribution Width 13.9 % (11.6-14.8) Platelet Count 254 K/UL (150-450) Mean Platelet Volume 8.2 FL (6.5-10.1) Neutrophils (%) (Auto) 69.0 % (45.0-75.0) Lymphocytes (%) (Auto) 23.3 % (20.0-45.0) Monocytes (%) (Auto) 6.3 % (1.0-10.0) Eosinophils (%) (Auto) 1.1 % (0.0-3.0) Basophils (%) (Auto) 0.3 % (0.0-2.0) Sodium Level 142 MMOL/L (136-145) Potassium Level 3.6 MMOL/L (3.5-5.1) Chloride Level 104 MMOL/L (98-107) Carbon Dioxide Level 30 MMOL/L (21-32) Anion Gap 9 mmol/L (5-15) Blood Urea Nitrogen 7 mg/dL (7-18) Creatinine 0.9 MG/DL (0.55-1.30) Estimat Glomerular Filtration Rate > 60 mL/min (>60) Glucose Level 157 MG/DL (74-106) Calcium Level 9.2 MG/DL (8.5-10.1) Total Bilirubin 0.4 MG/DL (0.2-1.0) Aspartate Amino Transf (AST/SGOT) 23 U/L (15-37) Alanine Aminotransferase (ALT/SGPT) 16 U/L (12-78) Alkaline Phosphatase 71 U/L (46-116) Total Protein 7.5 G/DL (6.4-8.2) Albumin 2.4 G/DL (3.4-5.0) Globulin 5.1 g/dL Albumin/Globulin Ratio 0.5 (1.0-2.7) Current Medications Medications (Trade) Dose Ordered Sig/Mikey Route PRN Reason Start Time Stop Time Status Last Admin Dose Admin Acetaminophen (Tylenol) 650 mg Q4H PRN ORAL MILD/TEMP 01/13/20 02:30 02/12/20 02:29 01/21/20 14:42 Acetaminophen/ Hydrocodone Bitart ([place] 5/325) 1 tab Q4H PRN ORAL Severe Pain (Pain Scale 7-10) 01/22/20 12:30 01/29/20 12:29 Aspirin (ASA) 81 mg DAILY ORAL 01/13/20 09:00 02/27/20 08:59 01/22/20 07:53 Carbidopa/Levodopa (Sinemet 25/100) 1 tab BID ORAL 01/13/20 09:00 02/12/20 08:59 01/22/20 07:54 Divalproex Sodium (Depakote Sprinkles) 500 mg BEDTIME NG 01/13/20 21:00 02/12/20 20:59 01/21/20 20:09 Docusate Sodium (Colace) 100 mg TWICE A DAY ORAL 01/13/20 09:00 02/12/20 08:59 01/22/20 07:54 Donepezil HCl (Aricept) 10 mg DAILY ORAL 01/13/20 09:00 02/12/20 08:59 01/22/20 07:53 Enoxaparin Sodium (Lovenox) 40 mg DAILY SUBQ 01/15/20 09:00 04/14/20 08:59 01/22/20 08:04 Gabapentin (Neurontin) 100 mg THREE TIMES A DAY ORAL 01/13/20 09:00 02/12/20 08:59 01/22/20 12:05 Levetiracetam (Keppra) 500 mg Q12HR ORAL 01/22/20 09:00 02/21/20 08:59 01/22/20 08:08 Magnesium Hydroxide (Mom) 30 ml DAILY PRN ORAL Constipation 01/13/20 02:30 02/12/20 02:29 Metoclopramide HCl (Reglan) 5 mg Q6HR IVP 01/17/20 10:30 02/16/20 10:29 01/22/20 12:05 Mirtazapine (Remeron) 45 mg BEDTIME ORAL 01/13/20 21:00 04/12/20 20:59 01/21/20 20:09 Sennosides (Senokot) 8.6 mg BEDTIME ORAL 01/13/20 21:00 02/12/20 20:59 01/21/20 20:10 Tramadol HCl (Ultram) 50 mg EVERY 8 HOURS ORAL 01/22/20 14:00 01/29/20 13:59 01/22/20 14:45 Rola Junior MD Jan 22, 2020 15:28
[2020-01-22] MEDS ORDERED: ACETAMINOPHEN325 M1 GT (15:49)
[2020-01-22] MEDS ORDERED: ASPIRIN81 MG ORAL (15:50)
[2020-01-22] MEDS ORDERED: DEPAKOTE SPRIN125 M1 GT (15:51)
[2020-01-22] MEDS ORDERED: COLACE100 MG/10 GT (15:52)
[2020-01-22] MEDS ORDERED: LOVENOX10 M4 SUBQ (15:54)
[2020-01-22] MEDS ORDERED: DONEPEZIL HCL10 MG GT (15:54)
[2020-01-22] MEDS ORDERED: HYDROCODON-ACE1 EA15 GT (15:55)
[2020-01-22] MEDS ORDERED: GABAPENTIN100 MG GT (15:55)
[2020-01-22] MEDS ORDERED: KEPPRA500 M4 ORAL (15:57)
[2020-01-22] MEDS ORDERED: MOM30 ML GT (16:00)
[2020-01-22] MEDS ORDERED: SINEMET CR 25/101 EA GT (16:00)
[2020-01-22] MEDS ORDERED: SENNA8.6 M2 GT (16:02)
[2020-01-22] MEDS ORDERED: MIRTAZAPINE45 MG GT (16:02)
[2020-01-22] MEDS ORDERED: TRAMADOL HCL50 MG ORAL (16:03)
[2020-01-22] MEDS ORDERED: KEPPRA500 MG ORAL (16:06)
--- NOTE | 2020-01-22 16:30 | NUR ---
NURSE NOTES: patient has been discharged back to [facility] by EMS. Report given to Alanna CASTAÑEDA from the facility. Notified son Arely who came to the hospital to oversee the discharge. Taken IV access off, no bleeding after site compression, placed band aid. Patient leaves with GT clamped after flush with NS 100cc. Abdominal binder placed. No sign of discomfort noted, VS stable. No belongings listed. Taken ID band off. Package given to EMT mr Mckenzie. Patient leaves on gurney, in stable condition.
--- NOTE | 2020-01-23 14:48 | Discharge Summary ---
Discharge Summary Discharge Summary _ DATE OF ADMISSION: 01/12/2020 DATE OF DISCHARGE: 01/22/2020 DISCHARGED BY: Dr. Barrera REASON FOR ADMISSION: 79 years old female, resident of detention facility, with past medical history of Parkinson disease, hypertension, dementia, bedbound, was sent for evaluation due to shortness of breath with hypoxia and cough. According to [facility] staff, patient appeared to be choking on her secretions. Pulse oximetry was in low 80s. Paramedics were called and transported patient for further evaluation to emergency department. In route pulse oximetry was stable. Upon arrival she was confused at baseline and occasionally conversational. Pulse oximetry was stable on room air. Laboratory work-up revealed no leukocytosis , stable hemoglobin ,hematocrit and platelet count. Urinalysis revealed +1 protein,+3 leukocyte esterase ,pyuria and moderate bacteria. Lactic acid 1.4. Stable electrolytes and renal parameters. c Troponin negative , pro BNP 300 . EKG revealed sinus rhythm . no acute ischemic changes. Albumin 3.0 . Chest x-ray revealed small right lower lobe infiltrate. Rapid COVID-19 in the emergency department was negative. In the emergency department patient pancultured started on broad-spectrum antibiotic and admitted for further management. Patient CONSULTANTS: pulmonary Dr. Bell ID specialist Dr. Junior GI specialist Dr. Rolle [facility] COURSE: Patient admitted and started on the IV fluids and broad-spectrum antibiotics. NG tube was inserted for medications and feeding. Aspiration precaution maintained. Supplemental oxygen provided and titrated to keep pulse oximetry above 92%. Pulmonary toilet provided. Blood cultures were negative. Urine culture revealed Pseudomonas. Repeated COVID-19 was negative as well. P Patient completed treatment for UTI while in the hospital. Patient was followed-up with ABG. Swallow evaluation recommended strict n.p.o. with consideration for comfort care measures versus long-term enteral feeding. Patient started on 3 times a week dysphagia management, giving n.p.o. status. GI specialist followed. Patient undergone upper endoscopy with PEG placement on 01/19 and was found to have gastritis. Patient was on PPI. Patient slowly started on tube feeding with tube feeding formula, goal rate and protein supplements as per registered dietitian.. Abdominal binder applied. G tube site care provided. Patient was able to tolerate tube feeding. Hemodynamic status was closely monitored. Blood pressure improved. Seizure precaution maintained Keppra continued Fall precautions maintained: patient was working with a physical therapist Sinemet continued. Psychiatric medication regimen continued as before . Potassium replaced and prior to discharge 3.6 . Hypernatremia corrected, and sodium down to 142. Prior to discharge pulse oximetry was stable on room air. Patient clinically stabilized and was ready for transfer back to detention facility for continuation of care. FINAL DIAGNOSES Acute hypoxemic respiratory failure, initially -resolved Acute toxic encephalopathy Dementia with behavioral disturbances Aspiration pneumonia Pseudomonas UTI Dysphagia Aspiration risk Status post EGD with PEG placement 01/19 Gastritis Diabetes mellitus Parkinson disease Bedbound status Senile debility Hypernatremia -corrected Hypokalemia -corrected Hypotension with history of hypertension DISCHARGE MEDICATIONS: See Medication Reconciliation list. DISCHARGE INSTRUCTIONS: Patient was discharged to the detention facility. Follow up with medical doctor at the facility. I have been assigned to dictate discharge summary for this account. I was not involved in the patient's management. Terri Bain NP Jan 23, 2020 14:48
== END 2020-01-22 16:35 | DRG 177 ==
LOC: EDBD 22:24 → EMR 23:20 → EDBEDREQ 23:25 → 4E 23:47 → EDBEDREQ 01-13 01:24 → 4E 01-18 20:36
PROC: 0DH63UZ Insertion of Feeding Device into Stomach, Percutaneous Approach (ICD-10-PCS; principal; 2020-01-20 08:42)
DX: J69.0 Pneumonitis due to inhalation of food and vomit (principal); J96.01 Acute respiratory failure with hypoxia; G92 Toxic encephalopathy; N39.0 Urinary tract infection, site not specified; E87.0 Hyperosmolality and hypernatremia; F02.81 Dementia in other diseases classified elsewhere, unspecified severity, with behavioral disturbance; I95.9 Hypotension, unspecified; G20 Parkinson's disease; B96.5 Pseudomonas (aeruginosa) (mallei) (pseudomallei) as the cause of diseases classified elsewhere; F41.9 Anxiety disorder, unspecified; R13.10 Dysphagia, unspecified; K29.70 Gastritis, unspecified, without bleeding; E11.9 Type 2 diabetes mellitus without complications; E87.6 Hypokalemia; I10 Essential (primary) hypertension; R00.1 Bradycardia, unspecified
CPT/HCPCS: 36415; 36600; 71045; 74018; 80048; 80053; 80202; 81003; 82140; 82550; 82553; 82803; 83605; 83735; 83880; 84100; 84443; 84484; 85025; 85610; 85730; 87040; 87081; 87086; 87181; 92610; 93005; 94003; 94150; 94664; 96365; 99285; J2765; U0002